=== PATIENT | male | born 1950 | race Caucasian/White ===

== ENCOUNTER 2020-04-10 18:49 | Inpatient (IN) | payer MEDICARE, SELFPAY ==
[2020-04-10] VITALS (7 sets, daily range): BP systolic 79–105; BP diastolic 50–64; PULSE 84–91; RESP 15–22; TEMP 36.9; O2SAT 88–99; BMI 30.7
--- NOTE | 2020-04-10 20:04 | XR_ITS ---
WS: [id number] PORTABLE CHEST HISTORY: SOB COMPARISON: None available. LEFT subclavian defibrillator obscures a small portion of the LEFT lung. Marked pulmonary hyperexpansion. Increasing opacification at the RIGHT lung base consistent with atel ectasis or pneumonia. No pleural effusions or pneumothorax. Cardiac size: Mildly enlarged cardiac silhouette. Mediastinum/Aorta: Normal mediastinum. No osseous abnormality seen. XR/XR chest 1V portable [id number] IMPRESSION: 1. Chronic emphysema with the RIGHT lower lobe pneumonitis or atelectasis. 2. Mild cardiomegaly.
--- NOTE | 2020-04-10 20:05 | ECG_ITS ---
[facility] Test Date: 2020-04-10 Pat Name: Shravan Ambrose Department: Room: Gender: Male Clerical Adjuster: : 1950 Requested By: Kevon Choi I Order Number: [id number] Nino MD: Jay Barton M.D. Measurements Intervals [place] Rate: 83 P: [place]: QRS: -23 QRSD: 82 T: 104 QT: 374 QTc: 441 Interpretive Statements ATRIAL FIBRILLATION WITH ABERRANT CONDUCTION OR VENTRICULAR PREMATURE COMPLEXES BORDERLINE LEFT AXIS DEVIATION [QRS AXIS < -20] LOW QRS VOLTAGE IN PRECORDIAL LEADS [QRS DEFLECTION < 1.0 mV IN CHEST LEADS] PATTERN CONSISTENT WITH PULMONARY DISEASE ST DEVIATION AND MODERATE T-WAVE ABNORMALITY, CONSIDER LATERAL ISCHEMIA [-0.1+ mV T WAVE IN I/aVL/V5/V6] INTERPRETATION BASED ON A DEFAULT AGE OF 40 YEARS No previous ECG available for comparison Electronically Signed On 04-10-2020 22:46:37 COMMUNITY ARTIST by Jay Barton M.D. [id number]
--- NOTE | 2020-04-10 20:13 | W.ED.SOB ---
HPI - SOB/Dyspnea General: Chief Complaint: Shortness of Breath/Dyspnea Stated Complaint: SOB/ RESPIRATORY DISTRESS Time Seen by Provider: 04/10/20 19:20 Source: patient Mode of arrival: EMS Limitations: other (poor historian) History of Present Illness: HPI Narrative: Patient is a really poor historian. He states that he developed some shortness of breath earlier today and is not able to tell me much more. He did say that he has a doctor do not want to place a stent in his heart sometime in April but he does not know the name of the doctor or where the doctor works out of. He denies a fever, denies chest pain, denies nausea or vomiting. His only symptoms are shortness of breath. He apparently has a pulse oximeter at home and when his family called for an ambulance they said he was hypoxic. When the ambulance got there his oxygen saturations were about 92 and he was placed on 2 L of oxygen. The patient states that he feels better now. MD elicited complaint: shortness of breath Timing: constant Exacerbating factors: nothing Relieving factors: oxygen Associated symptoms: Reports cough; Deny abdominal pain, chest congestion, chest pain, diaphoresis, dizziness, extremity pain, fever(s), hemoptysis, lightheadedness, myalgias, nausea, orthopnea, palpitations, paresthesias, polydipsia, polyuria, rash, sense of impending doom or syncope Review of Systems General: Reports: 10 or more systems reviewed and unremarkable except in HPI and below Const: Denies: fever(s) or diaphoresis Eyes: Denies: change in vision or blurry vision ENMT: Denies: throat pain, enlarged tonsils, odynophagia, hoarseness, mouth pain or swelling of lips/tongue Card: Denies: chest pain, palpitations, lightheadedness, syncope or orthopnea Resp: Denies: hemoptysis or chest congestion GI: Denies: abdominal pain or nausea : Denies: flank pain, dysuria, urinary frequency, urinary urgency or urinary hesitancy Musc: Denies: extremity pain Skin/Breast: Denies: rash, pruritus or erythema Neuro: Denies: dizziness Endo: Denies: polyuria or polydipsia Physical Exam Const: COMMON NORMALS: no acute distress, average body habitus, patient oriented x3, no limitations, healthy appearing, alert and well nourished HENMT: COMMON NORMALS: normocephalic, atraumatic and moist oral mucous membranes HEAD & SCALP: normocephalic and atraumatic Neck/C-Spine: COMMON NORMALS: no meningeal signs and no JVD Resp: COMMON NORMALS: normal respiratory effort, No retractions, No use of accessory muscles, clear to auscultation bilaterally and percussion normal AUSCULTATION: clear to auscultation bilaterally PERCUSSION: percussion normal Cardio: COMMON NORMALS: no JVD, regular rate, regular rhythm, S1 normal heart sound present, S2 normal heart sound present, No gallops present (Cardio), No clicks present (Cardio), No murmurs present (Cardio), No rub (Cardio) and Peripheral pulses 2+ throughout RATE: regular rate RHYTHM: regular rhythm HEART SOUNDS: S1 normal heart sound present and S2 normal heart sound present PERIPHERAL PULSES: Peripheral pulses 2+ throughout GI: COMMON NORMALS: Normal to inspection, nondistended, normoactive bowel sounds present, Soft to palpation, non-tender, No hepatosplenomegaly present, no masses and no bruits PALPATION: Yes Soft to palpation and Yes No hepatosplenomegaly present Extremity: COMMON NORMALS: normal to inspection, full ROM, capillary refill normal, no calf tenderness and no pedal edema Neuro: COMMON NORMALS: patient oriented x3 SENSORIUM/ORIENTATION: Yes alert MENINGEAL SIGNS: Yes no meningeal signs Skin: COMMON NORMALS: no rashes or lesions noted, no wounds, turgor normal, no jaundice, no petechiae and no mottling GENERAL SKIN EXAM: no rashes or lesions noted and turgor normal Course Consultations: Consultation #1: Discussed the patient with Dr. Negron, hospitalist and he kindly accepted patient to his service. Time: 23:20 Vital Signs: Vital signs: Vital Signs Temperature 98.4 F 04/10/20 19:03 Pulse Rate 87 04/10/20 23:00 Respiratory Rate 15 04/10/20 23:00 Blood Pressure 81/55 04/10/20 23:00 Pulse Oximetry 97 04/10/20 23:00 MDM - SOB/Dyspnea MDM Narrative: Medical decision making narrative: This 69-year-old male who is a poor historian and is unable to tell me much of anything other than he is short of breath and he has no pain anywhere. He was able to tell me that his senior windows systems engineer wants to place a stent however he is not able to tell me the name of his senior windows systems engineer or which hospital his senior windows systems engineer works out of. His caregiver is his sister Heather and the number we have for her in the computer is not working. I have tried her and intensive care unit nurse has also tried her but both times he says the number is not in service. We do not have any prior labs on this patient and he has several abnormal labs including mild leukocytosis, kidney failure and I am unsure whether this is acute or chronic but because his potassium is elevated I am leaning towards this being an acute kidney injury. He also has significantly elevated troponin and his delta is also significant at 18. He has been hypotensive throughout his emergency department stay, however he has a history of CHF and so we have been judicious with his fluid hydration. Because of his creatinine we are unable to get the CTA of his lungs and so VQ scan has been ordered. In the interim we will go ahead and start him on a heparin drip in case this is a PE versus a non-STEMI. We will admit him to the ICU for further evaluation and management. Medical Records: Attestation: I reviewed the patient's medical records. Lab Data: Attestation: I reviewed the patient's lab results. Labs: Lab Results 04/10/20 04/10/20 04/10/20 Range/Units 19:21 19:21 19:21 WBC 14.1 H (4.0-10.0) 10^3/ uL RBC 3.72 L (4.1-5.3) 10^6/u L Hgb 12.1 (11.7-16.6) g/dL Hct 38.2 L (42.0-52.0) % MCV 102.7 H (80-94) fL MCH 32.5 (28.0-34.0) pg MCHC 31.7 (30.0-36.0) g/dL RDW 15.4 H (12.1-15.1) % Plt Count 180 (130-400) 10^3/c mm MPV 13.7 H (7.4-10.4) fL Neut % (Auto) 86.2 % Lymph % (Auto) 6.3 % [place] % (Auto) 5.8 % Eos % (Auto) 0.8 % Baso % (Auto) 0.4 % Neut # (Auto) 12.13 H (1.8-7.7) 10^3/u L Lymph # (Auto) 0.9 (0.8-4.8) 10^3/u L [place] # (Auto) 0.8 (0.2-0.9) 10^3/u L Eos # (Auto) 0.1 (0.0-0.8) 10^3/u L Baso # (Auto) 0.1 (0.0-0.1) 10^3/u L Nucleated RBC % (a uto) 0 % Nucleated RBCs # 0.0 /100WBC Sodium 138 (136-145) mmol/L Potassium 6.1 H (3.5-5.1) mmol/L Chloride 104 (98-107) mmol/L Carbon Dioxide 24 (22-29) mmol/L Anion Gap 16.1 (5-19) BUN 31 H (8-23) mg/dL Creatinine 2.7 H (0.7-1.2) mg/dL GFR Calculation 23.5 L (90-130) mL/min Glucose 100 (65-115) mg/dL Calculated Osmolal ity 293 (285-295) mOsm/k g Lactate (0.5-2.2) mmol/L Calcium 8.9 (8.5-10.5) mg/dL Total Bilirubin 0.7 (0.15-1.2) mg/dL AST 10 (0-40) U/L ALT < 5 (0-41) U/L Alkaline Phosphata se 75 (40-130) IU/L Troponin T Baselin e 89 H (0-15) ng/L Troponin T 120 Min [place] (0-15) ng/L Delta Troponin T (0-10) ABS# C-Reactive Protein 10.6 H (0.0-4.9) mg/L NT-Pro-B Natriuret Pep 2012 H (0-125) pg/mL Total Protein 5.7 L (6.6-8.7) g/dL Albumin 3.6 (3.5-5.2) g/dL Globulin 2.1 (1.3-4.6) g/dL Procalcitonin 0.27 (0-0.5) ng/mL Nasal/Oral COVID-1 9 PCR SARS-CoV-2 Ag (Rap id) (Negative) 04/10/20 04/10/20 04/10/20 Range/Units 20:17 20:17 22:22 WBC (4.0-10.0) 10^3/ uL RBC (4.1-5.3) 10^6/u L Hgb (11.7-16.6) g/dL Hct (42.0-52.0) % MCV (80-94) fL MCH (28.0-34.0) pg MCHC (30.0-36.0) g/dL RDW (12.1-15.1) % Plt Count (130-400) 10^3/c mm MPV (7.4-10.4) fL Neut % (Auto) % Lymph % (Auto) % [place] % (Auto) % Eos % (Auto) % Baso % (Auto) % Neut # (Auto) (1.8-7.7) 10^3/u L Lymph # (Auto) (0.8-4.8) 10^3/u L [place] # (Auto) (0.2-0.9) 10^3/u L Eos # (Auto) (0.0-0.8) 10^3/u L Baso # (Auto) (0.0-0.1) 10^3/u L Nucleated RBC % (a uto) % Nucleated RBCs # /100WBC Sodium (136-145) mmol/L Potassium (3.5-5.1) mmol/L Chloride (98-107) mmol/L Carbon Dioxide (22-29) mmol/L Anion Gap (5-19) BUN (8-23) mg/dL Creatinine (0.7-1.2) mg/dL GFR Calculation (90-130) mL/min Glucose (65-115) mg/dL Calculated Osmolal ity (285-295) mOsm/k g Lactate 1.3 (0.5-2.2) mmol/L Calcium (8.5-10.5) mg/dL Total Bilirubin (0.15-1.2) mg/dL AST (0-40) U/L ALT (0-41) U/L Alkaline Phosphata se (40-130) IU/L Troponin T Baselin e (0-15) ng/L Troponin T 120 Min [place] (0-15) ng/L Delta Troponin T (0-10) ABS# C-Reactive Protein (0.0-4.9) mg/L NT-Pro-B Natriuret Pep (0-125) pg/mL Total Protein (6.6-8.7) g/dL Albumin (3.5-5.2) g/dL Globulin (1.3-4.6) g/dL Procalcitonin (0-0.5) ng/mL Nasal/Oral COVID-1 9 PCR Cancelled SARS-CoV-2 Ag (Rap id) Negative (Negative) 04/10/20 Range/Units 22:22 WBC (4.0-10.0) 10^3/ uL RBC (4.1-5.3) 10^6/u L Hgb (11.7-16.6) g/dL Hct (42.0-52.0) % MCV (80-94) fL MCH (28.0-34.0) pg MCHC (30.0-36.0) g/dL RDW (12.1-15.1) % Plt Count (130-400) 10^3/c mm MPV (7.4-10.4) fL Neut % (Auto) % Lymph % (Auto) % [place] % (Auto) % Eos % (Auto) % Baso % (Auto) % Neut # (Auto) (1.8-7.7) 10^3/u L Lymph # (Auto) (0.8-4.8) 10^3/u L [place] # (Auto) (0.2-0.9) 10^3/u L Eos # (Auto) (0.0-0.8) 10^3/u L Baso # (Auto) (0.0-0.1) 10^3/u L Nucleated RBC % (a uto) % Nucleated RBCs # /100WBC Sodium (136-145) mmol/L Potassium (3.5-5.1) mmol/L Chloride (98-107) mmol/L Carbon Dioxide (22-29) mmol/L Anion Gap (5-19) BUN (8-23) mg/dL Creatinine (0.7-1.2) mg/dL GFR Calculation (90-130) mL/min Glucose (65-115) mg/dL Calculated Osmolal ity (285-295) mOsm/k g Lactate (0.5-2.2) mmol/L Calcium (8.5-10.5) mg/dL Total Bilirubin (0.15-1.2) mg/dL AST (0-40) U/L ALT (0-41) U/L Alkaline Phosphata se (40-130) IU/L Troponin T Baselin e (0-15) ng/L Troponin T 120 Min [place] 70.94 H (0-15) ng/L Delta Troponin T -18.06 L (0-10) ABS# C-Reactive Protein (0.0-4.9) mg/L NT-Pro-B Natriuret Pep (0-125) pg/mL Total Protein (6.6-8.7) g/dL Albumin (3.5-5.2) g/dL Globulin (1.3-4.6) g/dL Procalcitonin (0-0.5) ng/mL Nasal/Oral COVID-1 9 PCR SARS-CoV-2 Ag (Rap id) (Negative) EKG Data^: EKG 1: Attestation: I personally reviewed and interpreted this EKG as follows: EKG Interpretation Date: 04/10/20 EKG interpretation time: 19:10 Prior EKG tracings: not available for review Interpretation: Atrial fibrillation. Heart rate [address] changes. EKG 2: Attestation: I personally reviewed and interpreted this EKG as follows: EKG Interpretation Date: 04/10/20 EKG interpretation time: 23:08 Prior EKG tracings: available for review Interpretation: Atrial fibrillation. Heart rate [address] changes. Discharge Plan Discharge Patient Disposition: Admitted As Inpatient Clinical Impression: Acute hypotension, Breath shortness, Elevated troponin, Acute hyperkalemia, Acute kidney injury CHF (congestive heart failure) Qualifiers: Heart failure type: unspecified Heart failure chronicity: unspecified Qualified Code(s): I50.9 - Heart failure, unspecified Condition: Stable Coding Level of Care Code ED Chef Manager for [facility] Fwd Exam Comprehensive
--- NOTE | 2020-04-10 20:17 | PC.NURSE ---
no c/o per pt. Pt stated I'm sick . undefine what's wrong per pt. I'm sick
[2020-04-10 21:31] LABS: SARS Covid-2 Antigen Negative (Negative)
--- NOTE | 2020-04-10 22:05 | ECG_ITS ---
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 Measurements Intervals [place] Rate: 90 P: [place]: QRS: -13 QRSD: 85 T: 121 QT: 344 QTc: 422 Interpretive Statements ATRIAL FIBRILLATION ABNORMAL QRS-T ANGLE [QRS-T AXIS DIFFERENCE > 60] INTERPRETATION BASED ON A DEFAULT AGE OF 40 YEARS Compared to ECG 04/10/2020 19:10:47 Ventricular premature complex(es) no longer present Aberrant conduction of supraventricular beat(s) no longer present T-wave abnormality no longer present Possible ischemia no longer present Electronically Signed On 04-11-2020 18:38:49 COAL HAULER OPERATOR by Jay Barton M.D. [id number]
[2020-04-10 22:15] LABS: Basophils # 0.1 10^3/uL (0.0-0.1); Basophils % 0.4 %; Eosinophils # 0.1 10^3/uL (0.0-0.8); Eosinophils % 0.8 %; Hematocrit 38.2 % (42.0-52.0); Hemoglobin 12.1 g/dL (11.7-16.6); Lymphocytes # 0.9 10^3/uL (0.8-4.8); Lymphocytes % 6.3 %; Mean Corpuscular HGB Conc 31.7 g/dL (30.0-36.0); Mean Corpuscular Hemoglobin 32.5 pg (28.0-34.0); Mean Corpuscular Volume 102.7 fL (80-94); Mean Platelet Volume 13.7 fL (7.4-10.4); Monocytes # 0.8 10^3/uL (0.2-0.9); Monocytes % 5.8 %; Neutrophils # 12.13 10^3/uL (1.8-7.7); Neutrophils % 86.2 %; Nucleated Red Blood Cells % 0 %; Platelet Count 180 10^3/cmm (130-400); Red Blood Count 3.72 10^6/uL (4.1-5.3); Red Cell Distribution Width 15.4 % (12.1-15.1); White Blood Count 14.1 10^3/uL (4.0-10.0)
--- NOTE | 2020-04-10 22:22 | PC.NURSE ---
Reviewed with provider, NS 500cc. Hold 2nd NS 500cc now.
--- NOTE | 2020-04-10 22:24 | PC.NURSE ---
Lab at bedside for repeat Trop
--- NOTE | 2020-04-10 22:25 | PC.NURSE ---
Provider aware of VS
[2020-04-10 22:27] LABS: Troponin(5th) Baseline 89 ng/L (0-15)
[2020-04-10 22:34] LABS: NT Pro B Type Natriuretic Pept 2012 pg/mL (0-125); Procalcitonin 0.27 ng/mL (0-0.5)
[2020-04-10 22:46] LABS: Alanine Aminotransferase < 5 U/L (0-41); Albumin Level 3.6 g/dL (3.5-5.2); Alkaline Phosphatase 75 IU/L (40-130); Anion Gap 16.1 (5-19); Aspartate Amino Transferase 10 U/L (0-40); Blood Urea Nitrogen 31 mg/dL (8-23); C Reactive Protein 10.6 mg/L (0.0-4.9); Calcium 8.9 mg/dL (8.5-10.5); Carbon Dioxide 24 mmol/L (22-29); Chloride 104 mmol/L (98-107); Globulin 2.1 g/dL (1.3-4.6); Glomerular Filtration Rate 23.5 mL/min (90-130); Glucose 100 mg/dL (65-115); Osmolality Calculated 293 mOsm/kg (285-295); Potassium 6.1 mmol/L (3.5-5.1); Sodium 138 mmol/L (136-145); Total Bilirubin 0.7 mg/dL (0.15-1.2); Total Protein 5.7 g/dL (6.6-8.7)
[2020-04-10 23:11] LABS: Lactate (Lactic Acid level) 1.3 mmol/L (0.5-2.2)
[2020-04-10 23:12] LABS: Troponin 5 2HR 70.94 ng/L (0-15)
--- NOTE | 2020-04-10 23:34 | PC.NURSE ---
technology integration specialist at bedside for Plts/INR/PTT/PT.
[2020-04-10 23:48] LABS: Platelet Count 179 10^3/cmm (130-400)
[2020-04-11] VITALS (52 sets, daily range): BP systolic 77–141; BP diastolic 49–85; PULSE 67–119; RESP 9–27; TEMP 36.4–36.6; O2SAT 85–97
[2020-04-11] LABS: Partial Thromboplastin Time 48.2 SECONDS (23.9-36.7)
[2020-04-11 00:04] LABS: INR 1.67 (0.8-1.2)
--- NOTE | 2020-04-11 00:07 | PC.NURSE ---
2nd RN - double check by SARAH Brown.
[2020-04-11] MEDS: heparin drip 25,000 UNIT/500 ML PREMIX 25 UNIT (00:15)
--- NOTE | 2020-04-11 00:15 | PC.NURSE ---
Report to SARAH Main. Room not clean, SARAH Main to call back when room clean.
--- NOTE | 2020-04-11 00:16 | P.HP_ITS ---
Providers/Chief Complaint Admitting Physician: Perla Negron MD Primary Care Provider: Miguel Canela Chief Complaint: SOB/ RESPIRATORY DISTRESS History of Present Illness Shravan Ambrose is a 69 year old male who presented to the hospital with chief complaint of not feeling right. Patient is not a good historian he is stating that he is not sure why he in the hospital but he felt sick. He is defining sickness as feeling short of breath when he was setting up his dinner table, he experienced presyncope, denied any chest pain, fever, nausea, vomiting, diarrhea, dysuria or syncopal event. He is not sure about his medications, past medical surgical history. We tried to call his caregiver who is his sister she is not able to answer our call. Multiple calls were made. Diagnosis in the ER revealed hypotension, responsive to fluid resuscitation, heparin drip was starte d initially in consideration of possible PE but he was saturating well on room air no tachycardia D-dimer unremarkable I have discontinued heparin drip. He was given 500 mL bolus which improved his blood pressure initially his systolic blood pressure was ranging between systolic 70 to 80s millimeters mercury. He was awake alert oriented x3 was not complaining of active shortness of breath. EMS brought him on 2 L but he did well on room air. Diagnosis in the ER revealed sepsis, most likely source is community-acquired pneumonia, left lower lobe pneumonia, I have started him on ceftriaxone and azithromycin sent blood culture, discontinued heparin drip, requested CT abdomen to rule out because of hyperkalemia. I reviewed his medications which include lisinopril, potassium supplementation, Lasix. BNP 2000, chest x-ray also shows mild pulmonary vascular congestion, EKG is not showing ischemic or infarctive changes or hyperkalemic changes. EKG has atrial flutter pattern without RVR For most of my question patient is saying I am not sure, I cannot tell you the details . However he told me that he was scheduled for placement of stent. He is not sure where his vp information technology is but thinks he is in [place] and stent was most likely to be placed in coronary artery. He is denying leg pain, chest pain active shortness of breath. Review of Systems Const: Denies: fever(s) Eyes: Denies: change in vision ENMT: Denies: throat pain Card: Reports: dyspnea on exertion; Denies: chest pain Resp: Reports: dyspnea GI: Denies: abdominal pain : Denies: flank pain Musc: Denies: neck pain Skin/Breast: Denies: rash Neuro: Denies: headache(s) Psych: Denies: anxiety Endo: Denies: polyuria Jet/Lymph: Denies: easy bruising All/Imm: Denies: urticaria Medications/Allergies Home Medications Medication Instructions Recorded Confirmed Last Taken Type albuterol sulfate [ProAir HFA] See Rx Instructions .ROUTE .COMPLEX 04/10/20 04/10/20 Unknown History allopurinol 100 mg PO DAILY@99904/10/20 04/10/20 04/10/20 History alogliptin 12.5 mg PO DAILY@99904/10/20 04/10/20 04/10/20 History apixaban [Eliquis] 5 mg PO BID@999,202904/10/20 04/10/20 04/10/20 History aspirin [Nhi Chewable Aspirin] 81 mg PO DAILY@99904/10/20 04/10/20 04/10/20 History atorvastatin 80 mg PO DAILY@202904/10/20 04/10/20 04/09/20 History carvedilol 25 mg PO BID@1000,0830 04/10/20 04/10/20 04/10/20 History furosemide 40 mg PO DAILY@99904/10/20 04/10/20 04/10/20 History glipizide 10 mg PO BID@1000,202904/10/20 04/10/20 04/10/20 History isosorbide mononitrate 30 mg PO BID@999,202904/10/20 04/10/20 04/10/20 History lisinopril 2.5 mg PO DAILY@1000 04/10/20 04/10/20 04/10/20 History nitroglycerin 0.4 mg SUBLINGUAL Q5M PRN 04/10/20 04/10/20 Unknown History pantoprazole 40 mg PO BID@1000,202904/10/20 04/10/20 04/10/20 History pentoxifylline 400 mg PO TID@10,15,20 04/10/20 04/10/20 04/10/20 History potassium chloride 20 meq PO BID@999,202904/10/20 04/10/20 04/10/20 History spironolactone 25 mg PO DAILY@1000 04/10/20 04/10/20 04/10/20 History Allergies Allergy/AdvReac Type Severity Reaction Status Date / Time No Known Allergies Allergy Verified 04/10/20 19:09 PFSH Acute PFSH: Medical History COPD (chronic obstructive pulmonary disease) Coronary artery disease Diabetes History of placement of internal cardiac defibrillator Surgical History AICD (automatic cardioverter/defibrillator) present Family History Other Family history non-contributory Social History Smoking and tobacco status: current every day smoker cigarettes [ Other cigarette details: Smokes half a pack a day ] Alcohol intake: never Substance/Drug Use: never Household members: other Details: Lives with his sister Housing: House Vitals/I&O/Wt Last Vital Signs Temp 98.4 F 04/10/20 19:03 Pulse 78 04/11/20 00:00 Resp 18 04/11/20 00:00 BP 88/68 04/11/20 00:00 Pulse Ox 96 04/11/20 00:00 Weight last 48 hrs Weight 88.904 kg Physical Exam Narrative: EXAM NARRATIVE: Elderly male currently laying comfortably in his bed without active shortness of breath or chest pain Saturating well on room air He was trying to catch up on his sleep For most of my questions he said Rhys not sure S1, S2 variable, no active signs of decompensated heart failure AICD site nonsensitive Current systolic blood pressure 100, mean arterial pressure 70 He is awake alert oriented x3 GCS 15 no neurological deficit EOMI, PERRLA Moving all of his extremities Bilateral breath sounds without respiratory distress Abdomen soft, distended visceral obesity nontender no signs of peritonitis Lower extremity no edema gangrene ulcer Cognitive impairment Data : 04/10/20 23:39 04/10/20 19:21 A&P Assessment and plan (1) Sepsis: Status: Acute (2) Community acquired pneumonia: Status: Acute (3) Acute hypotension: Status: Acute (4) CHF (congestive heart failure): Status: Acute Qualifiers: Heart failure chronicity: unspecified Heart failure type: unspecified Qualified Code(s): I50.9 - Heart failure, unspecified (5) Acute hyperkalemia: Status: Acute (6) Acute kidney injury: Status: Acute Additional A&P Information Sepsis secondary to community-acquired pneumonia Criteria met with hypotension, tachypnea and leukocytosis, likely left lower lobe pneumonia start him on ceftriaxone, azithromycin Hypotensive but responsive to fluid resuscitation I would continue maintenance fluid until 7 AM considering history of CHF Requested blood culture and urine antigen Currently saturating well on room air, D-dimer unremarkable Acute kidney injury Do not have previous creatinine to compare He has been taking lisinopril, potassium supplementation, spironolactone most likely for CHF I would hold all of these nephrotoxic agents hyperkalemia: I would give him insulin 10 units along D50 amp, albuterol 10 mg and Kayexalate No EKG changes for hyperkalemia noted, will give 1 g calcium gluconate Rule out hydronephrosis, requested CT abdomen without contrast Congestive heart failure without acute decompensation BNP is 2000 D-dimer unremarkable do not suspect PE, clinically does not look fluid overloaded or decompensated, does not fit the criteria of cardiogenic shock Would request echo in the morning and records from his vp information technology once we know from his sister Chest x-ray showing mild vascular congestion with mild bilateral pleural effusion Patient has AICD evident on chest x-ray Telemetry showing atrial flutter heart rate in 70s We will check TSH Patient is stating that he was scheduled for a stent placement in April at [place] but he is not able to tell me who is his vp information technology whether it was a coronary stent or peripheral stent Full code Cardiac diet DVT prophylaxis not indicated as she is taking Eliquis 5 mg twice a day which I would reduce to 2.5 mg twice a day because of ALISSON, discontinue heparin drip he has negative delta troponin not complaining of active chest pain, most likely type II CT due to hypotension Attestations Medical Necessity Statement*: Anticipating stay in the hospital cross more than 2 midnights currently I will admit him to ICU because of hyperkalemia and hypotension, he is not a good historian will need to straighten out his information and details once we are able to get hold of his vp information technology and sister Time Spent in Patient Care: (>than 50% of time spent in counselling and/or direct pt care on unit) . 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
--- NOTE | 2020-04-11 00:33 | PC.NURSE ---
Admitting provider at bedside
--- NOTE | 2020-04-11 00:39 | PC.NURSE ---
SARAH Main called to confirm cancel send out COVID. RN requested 2nd IV. Room ready
--- NOTE | 2020-04-11 00:45 | PC.NURSE ---
Pt to room 8 via stretcher, pt to ICU then return to CT for scan via this RN. Return pt to ICU, updated report to SARAH Main
--- NOTE | 2020-04-11 01:00 | CTR_ITS ---
PROCEDURE INFORMATION: Exam: CT Chest Without Contrast; Diagnostic Exam date and time: 04/11/2020 1:03 AM Age: 69 years old Clinical indication: Abnormal findings; Abnormal lab test; Abnormal kidney function lab tests; Prior surgery; Surgery type: Pacer; Patient HX: SOB. Elevated creatinine. ; Additional info: Hydronephrosis and cap TECHNIQUE: Imaging protocol: Diagnostic computed tomography of the chest without contrast. Radiation optimization: All CT scans at this facility use at least one of these dose optimization techniques: automated exposure control; mA and/or kV adjustment per patient size (includes targeted exams where dose is matched to clinical indication); or iterative reconstruction. COMPARISON: CR XR chest 1V portable [id number] 04/10/2020 8:06 PM RADIATION DOSE METRICS: Total DLP (mGy-cm): 1595.69 FINDINGS: Tubes, catheters and devices: There is a single lead AICD with the lead positioned in the right ventricle. Lungs: Subsegmental atelectasis in both lungs. No consolidation. Bronchial wall thickening with crowding of bronchi in the right lower lobe. Pleural space: Unremarkable. No pneumothorax. No pleural effusion. Heart: There is mild cardiac enlargement. There is trace pericardial effusion. There is severe coronary artery calcification. Probable left anterior descending coronary stent. Aorta: There is moderate aortic atherosclerotic disease. Lymph nodes: There is no mediastinal or hilar lymphadenopathy. There are calcified right hilar lymph nodes. Bones/joints: Chronic fractures of the left lateral 3rd and 4th ribs. No acute fracture. Soft tissues: Bilateral gynecomastia. IMPRESSION: 1. Subsegmental atelectasis in the right lower lobe. Possible superimposed acute or chronic bronchitis. 2. Incidental findings above. PROCEDURE INFORMATION: Exam: CT Abdomen And Pelvis Without Contrast Exam date and time: 04/11/2020 1:03 AM Age: 69 years old Clinical indication: Abnormal findings; Abnormal lab test; Abnormal kidney function lab tests; Prior surgery; Surgery type: Pacer; Patient HX: SOB. Elevated creatinine. ; Additional info: Hydronephrosis and cap TECHNIQUE: Imaging protocol: Computed tomography of the abdomen and pelvis without contrast. Radiation optimization: All CT scans at this facility use at least one of these dose optimization techniques: automated exposure control; mA and/or kV adjustment per patient size (includes targeted exams where dose is matched to clinical indication); or iterative reconstruction. COMPARISON: CR XR chest 1V portable [id number] 04/10/2020 8:06 PM RADIATION DOSE METRICS: Total DLP (mGy-cm): 1595.69 FINDINGS: Liver: There are scattered liver calcifications. No mass or cyst. Gallbladder and bile ducts: The gallbladder is normal. There is no biliary dilation. Pancreas: The pancreas is unremarkable. Spleen: Splenic size is normal. There are scattered calcifications consistent with healed granulomas. Adrenal glands: The adrenal glands are unremarkable. Kidneys and ureters: The kidneys are unremarkable. No hydronephrosis or stones. No ureteral dilation. Stomach and bowel: The stomach is decompressed, preventing meaningful evaluation of wall thickness. The small bowel is nondilated. The colon is unremarkable. Appendix: The appendix is normal. Intraperitoneal space: There is no free air or significant intraperitoneal free fluid. Vasculature: There is severe aortic atherosclerotic disease. Lymph nodes: There is no lymphadenopathy in the retroperitoneum, mesentery, pelvis or inguinal regions. Urinary bladder: The urinary bladder is unremarkable. Reproductive: The prostate and seminal vesicles are unremarkable. Bones/joints: There is mild degenerative disease in the lumbar spine. The pelvis and hips are intact. Soft tissues: The abdominal wall is intact. CT/CT chest abd pel wo con IMPRESSION: 1. No acute findings. 2. Incidental findings above. Radiation Dose CTDIVOL = (mGy): DLP = 1595.69~1595.69 (mGy-cm)
[2020-04-11] MEDS: calcium gluconate 0.1 gm/mL 10% SDV 10mL 1 GM IVP (01:48)
[2020-04-11] MEDS: dextrose 50% syringe 50 mL 25 ML IVP (01:49)
[2020-04-11] MEDS: sodium chloride 0.9% 1,000 ML 75 ML IV (01:49)
[2020-04-11] MEDS: sodium polystyrene sulfonate 15 gm/60 mL Btl PO (01:50)
[2020-04-11] MEDS: cefTRIAXone 1,000 MG in sodium chloride 0.9% (plus) 50 ML 100 MG IV (01:50)
--- NOTE | 2020-04-11 02:05 | ECG_ITS ---
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 Measurements Intervals [place] Rate: 82 P: [place]: QRS: -40 QRSD: 92 T: 111 QT: 348 QTc: 409 Interpretive Statements ATRIAL FIBRILLATION MARKED LEFT AXIS DEVIATION [QRS AXIS < -30] ANTEROSEPTAL MYOCARDIAL INFARCTION [40+ ms Q WAVE IN V1-V4], PROBABLY OLD INTERPRETATION BASED ON A DEFAULT AGE OF 40 YEARS Compared to ECG 04/10/2020 23:08:29 Left-axis deviation now present Myocardial infarct finding now present Electronically Signed On 04-11-2020 18:39:14 FIRE PREVENTION FORESTER by Jay Barton M.D. [email or web address]/store/[id number] f
[2020-04-11] MEDS: insulin regular-human 10 UNIT in SYRINGE 1 EACH IVP (02:16)
[2020-04-11] MEDS: albuterol 8 gm MDI 4 PUFF INHALATION (02:51)
[2020-04-11 03:20] LABS: Basophils % 0.3 %; Eosinophils # 0.1 10^3/uL (0.0-0.8); Eosinophils % 0.6 %; Hematocrit 39.1 % (42.0-52.0); Hemoglobin 12.7 g/dL (11.7-16.6); Lymphocytes % 9.3 %; Mean Corpuscular HGB Conc 32.5 g/dL (30.0-36.0); Mean Corpuscular Hemoglobin 32.5 pg (28.0-34.0); Mean Platelet Volume 13.1 fL (7.4-10.4); Monocytes # 0.5 10^3/uL (0.2-0.9); Monocytes % 4.8 %; Neutrophils # 8.67 10^3/uL (1.8-7.7); Neutrophils % 84.7 %; Nucleated Red Blood Cells % 0 %; Platelet Count 195 10^3/cmm (130-400); Red Blood Count 3.91 10^6/uL (4.1-5.3); Red Cell Distribution Width 15.5 % (12.1-15.1); White Blood Count 10.2 10^3/uL (4.0-10.0)
[2020-04-11 03:40] LABS: Alanine Aminotransferase 7 U/L (0-41); Albumin Level 3.8 g/dL (3.5-5.2); Alkaline Phosphatase 77 IU/L (40-130); Anion Gap 17.3 (5-19); Aspartate Amino Transferase 12 U/L (0-40); Blood Urea Nitrogen 27 mg/dL (8-23); Calcium 9.8 mg/dL (8.5-10.5); Carbon Dioxide 25 mmol/L (22-29); Chloride 102 mmol/L (98-107); Globulin 2.8 g/dL (1.3-4.6); Glomerular Filtration Rate 29.7 mL/min (90-130); Glucose 74 mg/dL (65-115); Osmolality Calculated 294 mOsm/kg (285-295); Potassium 4.3 mmol/L (3.5-5.1); Sodium 140 mmol/L (136-145); Total Bilirubin 0.5 mg/dL (0.15-1.2); Total Protein 6.6 g/dL (6.6-8.7)
[2020-04-11 03:42] LABS: Troponin 5 6HR 77.34 ng/L (0-15)
--- NOTE | 2020-04-11 09:15 | PC.CHAP ---
Pastoral Care Encounter/Spiritual Assessment Type of Contact [] Declined bit tripoler visit [] Patient/Family/Request visit [] Outpatient visit [] Follow-up visit [] Physician referral [] Code/Alert [] Routine visit [] Staff referral [] Actively dying [] Patient sleeping [] Family support [] [] Out of room [] Palliative care [] [] Receiving care in room [] Pre-surgical visit [] Trauma [] Long length of stay [x] ICU visit [] Other: Relational/Emotional Strength [] Patient feels connected with others/family/visitors/staff [] Distress [] Loneliness/isolation [] Abandonment Spirituality of Patient [] Person of Gwendolyn [] Attends Gnosticist of their Gwendolyn [] Believes in Prayer [] Reads Bible or Sikhism materials [] There are Spiritual issues to be addressed Cigar Wrapper Tender Automatic Interventions [x] Prayer [] Active listening [] Non-anxious presence [] Spiritual/emotional support [] Crisis/trauma care [] Spiritual counseling [] Bereavement support [] Provided bereavement packet [] Provided Bible/devotional materials [] Provided toy/stuffed animal, coloring book to patient or family member [] Provided Communion [] Anointing/[place] [] Salvation [x] Completed spiritual assessment [] Other: Impact on Illness or Injury [] Angry [] Fearful [] Anxious [] Often cries [] Exhaustion [] Unable to work [] Unable to attend restorationism [] Unable to walk/stand [] Unable to read [] Unable to drive [] Unable to eat/drink [] Unable to sleep [] Unable to be with family [] Patient intubated [] Other: Summary Time spent with patient
[2020-04-11] MEDS: apixaban 5 mg Tablet 2.5 MG PO ×2 (09:28→20:26)
[2020-04-11] MEDS: allopurinol 100 mg Tablet PO (09:28)
[2020-04-11] MEDS: azithromycin 250 mg Tablet 500 MG PO (09:28)
[2020-04-11] MEDS: aspirin 81 mg Chew Tablet PO (09:28)
--- NOTE | 2020-04-11 09:39 | P.PN_ITS ---
Subjective Subjective: Interval history: Mr. Cheney is doing fine today in the morning, shortness of breath has improved. Currently he is denying any chest pain, nausea vomiting. He is tolerating diet well. Has remained afebrile, has maintained a fairly good MAP without any pressors support. Is still in a flutter but rate is well controlled. Other vitals and labs have been reviewed Medications: Reviewed: Yes Vitals/I&O/Wt Last Vital Signs Temp 97.9 F 04/11/20 01:25 Pulse 102 H 04/11/20 08:25 Resp 17 04/11/20 07:00 BP 95/62 04/11/20 07:00 Pulse Ox 96 04/11/20 08:25 04/10/20 04/11/20 04/11/20 22:59 06:59 14:59 Intake Total 50 / 50 Output Total 600 / 600 Balance -550 / -550 Weight last 48 hrs Weight 88.904 kg Physical Exam Const: COMMON NORMALS: patient oriented x3 HENMT: COMMON NORMALS: normocephalic and atraumatic HEAD & SCALP: normocephalic and atraumatic Chest: COMMONS NORMALS: normal inspection of the chest CHEST: Yes Symmetrical chest wall rise Resp: COMMON NORMALS: normal respiratory effort EFFORT & INSPECTION: Yes symmetric chest movement OTHER: Diminished air entry at the bases, occasional wheezing, no crackles no rhonchi Cardio: OTHER: S1-S2 of variable intensity, no murmur rub or gallop appreciated GI: COMMON NORMALS: Normal to inspection, nondistended, normoactive bowel sounds present, Soft to palpation, non-tender, No hepatosplenomegaly present and no masses AUSCULTATION: Yes normoactive bowel sounds PALPATION: Yes Soft to palpation and Yes No hepatosplenomegaly present RECTAL EXAM: Yes deferred Extremity: COMMON NORMALS: no clubbing, cyanosis or edema and no pedal edema Neuro: COMMON NORMALS: patient oriented x3 Urinary Catheter Management^: Mota: Cath Placed During This Visit: yes Reason for Continuing Indwelling Catheter: Accurate Measurement of Urinary Output in Critically Ill Patients Urinary Catheter Date of Insertion: 04/11/20 Urinary Catheter Time of Insertion: 01:45 Data : 04/11/20 03:05 04/11/20 03:05 Micro: Microbiology 04/11/20 01:39 Bacterial Antigens - Final Urine,Voided 04/11/20 01:39 Legionella Urinary Antigen - Final Urine Catheterized 04/11/20 03:05 Blood Culture - Preliminary Blood SPECIMEN COLLECTED 04/11/20 03:08 Blood Culture - Preliminary Blood SPECIMEN COLLECTED A&P Assessment and plan (1) Sepsis: Continue ceftriaxone and azithromycin for now. Follow cultures Currently hemodynamically stable. Pro calcitonin: 0.27, lactic acid: 1.3. WBC is appropriately trending down. Rapid Covid is negative, PCR awaited Status: Acute (2) Community acquired pneumonia: Continue ceftriaxone and azithromycin for now. Status: Acute (3) Acute kidney injury: Baseline serum creatinine unknown: Currently serum creatinine is 2.2, as compared to 2.7 of admission. We will continue to hold lisinopril. Monitor BMP Continue to hold Lasix. Avoid nephrotoxic Avoid blood pressure fluctuation Urine electrolytes. We will avoid IV hydration. Encourage oral intake. Status: Acute (4) CHF (congestive heart failure): HFrEf: With EF of 15%. Currently compensated. Is undergoing extensive coronary artery disease as well as newly diagnosed heart failure work-up. Had detailed discussion with sister, underwent recent echo, stress test, and is due to see his water restoration technician in first week of Apr.We will avoid extensive cardiology work-up, as the patient wants to continue to follow with his primary water restoration technician. Status: Acute Qualifiers: Heart failure chronicity: unspecified Heart failure type: unspecified Qualified Code(s): I50.9 - Heart failure, unspecified (5) COPD (chronic obstructive pulmonary disease): Duo nebs PRN Solumedrol 40 mg i.v daily Supplemental oxygen as needed maintain saturation greater than 90% ABG as needed Status: Inactive (6) Elevated troponin: Denies any chest pain. Likely chronically elevated troponin, in the presence of, chronic heart failure. Telemetry. Status: Acute (7) Atrial fibrillation and flutter: Rate controlled Telemetry Continue Eliquis 2.5 MG Q12H Daily.Adjust with renal function. Status: Acute (8) Diabetes: LDSSI Monitor FSG Status: Inactive (9) Acute hyperkalemia: Resolved Status: Acute (10) AICD (automatic cardioverter/defibrillator) present: Status: Inactive (11) Coronary artery disease: follow cardiology as outpatinet. Status: Inactive Additional A&P Information CODE STATUS: Full code DVT prophylaxis: Currently on Eliquis Disposition: Home (anticipated discharge 04/13) Attestations Medical Necessity Statement*: Patient needs to be in hospital for the management of PNA and sepsis. Coding Level of Care Code Acute Retail Maintenance Technician for g Fwd Exam Detailed Diagnoses Sepsis A41.9 Community acquired pneumonia J18.9 Acute kidney injury N17.9 CHF (congestive heart failure) I50.9 Heart failure chronicity: unspecified Heart failure type: unspecified COPD (chronic obstructive pulmonary disease) J44.9 Elevated troponin R77.8 Atrial fibrillation and flutter I48.91; I48.92 Diabetes E11.9 Acute hyperkalemia E87.5 AICD (automatic cardioverter/defibrillator) present Z95.810 Coronary artery disease I25.10
[2020-04-11] MEDS: ondansetron 2 mg/ML SDV 2 mL 4 MG IVP ×2 (14:17→22:28)
--- NOTE | 2020-04-11 14:21 | PC.RESP ---
Smoking Cessation and Pulmonary Rehab information sent to patient.
[2020-04-11 17:58] LABS: Glucose Point of Care 75 mg/dL (70-110)
[2020-04-11] MEDS: atorvastatin 40 mg Tablet 80 MG PO (20:26)
[2020-04-11 20:35] LABS: Glucose Point of Care 95 mg/dL (70-110)
[2020-04-12] VITALS (51 sets, daily range): BP systolic 88–156; BP diastolic 50–102; PULSE 68–141; RESP 4–25; TEMP 36.9; O2SAT 85–99
[2020-04-12] MEDS: metoclopramide 5 mg/mL SDV 2 mL 10 MG IVP (00:14)
--- NOTE | 2020-04-12 00:15 | ECG_ITS ---
[facility] Test Date: 2020-04-12 Pat Name: Shravan Ambrose Department: Room: [facility]08 Gender: Male Him Specialists: : 1950 Requested By: Perla Negron Order Number: [id number] Nino MD: Estrella Vo M.D. Measurements Intervals [place] Rate: 128 P: [place]: QRS: -35 QRSD: 98 T: 87 QT: 291 QTc: 425 Interpretive Statements ATRIAL FIBRILLATION WITH RAPID VENTRICULAR RESPONSE POSSIBLE OLD SEPTAL INFARCT MARKED LEFT AXIS DEVIATION [QRS AXIS < -30] PATTERN CONSISTENT WITH PULMONARY DISEASE Compared to ECG 04/11/2020 02:46:53 Myocardial infarct finding still present Electronically Signed On 04-12-2020 8:44:46 CONSTRUCTION REP by Estrella Vo M.D. [id number] f
[2020-04-12] MEDS: cefTRIAXone 1,000 MG in sodium chloride 0.9% (plus) 50 ML 100 MG IV (00:42)
[2020-04-12] MEDS: promethazine 25 mg/mL SDV 1 mL IM (00:43)
[2020-04-12] MEDS: LORazepam 2 mg/mL INJ 1 mL 1 MG IVP (00:43)
[2020-04-12] MEDS: ondansetron 2 mg/ML SDV 2 mL 4 MG IVP (01:58)
[2020-04-12 07:31] LABS: Platelet Count 169 10^3/cmm (130-400)
[2020-04-12 07:59] LABS: Glucose Point of Care 114 mg/dL (70-110)
[2020-04-12] MEDS: azithromycin 250 mg Tablet 500 MG PO (09:56)
[2020-04-12] MEDS: allopurinol 100 mg Tablet PO (09:56)
[2020-04-12] MEDS: apixaban 5 mg Tablet 2.5 MG PO (09:57)
[2020-04-12] MEDS: aspirin 81 mg Chew Tablet PO (09:57)
[2020-04-12 11:53] LABS: Basophils % 0.1 %; Hematocrit 35.8 % (42.0-52.0); Hemoglobin 11.5 g/dL (11.7-16.6); Lymphocytes # 0.6 10^3/uL (0.8-4.8); Lymphocytes % 5.2 %; Mean Corpuscular HGB Conc 32.1 g/dL (30.0-36.0); Mean Corpuscular Hemoglobin 32.3 pg (28.0-34.0); Mean Corpuscular Volume 100.6 fL (80-94); Monocytes # 0.5 10^3/uL (0.2-0.9); Monocytes % 4.6 %; Neutrophils # 10.22 10^3/uL (1.8-7.7); Neutrophils % 89.4 %; Nucleated Red Blood Cells % 0 %; Platelet Count 170 10^3/cmm (130-400); Red Blood Count 3.56 10^6/uL (4.1-5.3); Red Cell Distribution Width 15.5 % (12.1-15.1); White Blood Count 11.4 10^3/uL (4.0-10.0)
--- NOTE | 2020-04-12 12:08 | PM.PN ---
Subjective Subjective: Interval history: is doing fine.No acute event overnight,resting comfortably. H/R is well controlled.Has remained afebrile,B/P is well controlled.Is saturating well on 3Ls Oxygen via NC.ALISSON is improving. Resting comfortably in bed was sleepy this morning. Other vitals and labs have been reviewed. Medications: Reviewed: Yes Vitals/I&O/Wt Last Vital Signs Temp 97.6 F 04/11/20 19:00 Pulse 80 04/12/20 11:00 Resp 17 04/12/20 11:00 BP 127/64 04/12/20 11:00 Pulse Ox 98 04/12/20 11:00 04/11/20 04/12/20 04/12/20 22:59 06:59 14:59 Intake Total 250 / 850 50 / 900 450 / 450 Output Total 600 / 600 450 / 1050 1050 / 1050 Balance -350 / 250 -400 / -150 -600 / -600 Weight last 48 hrs Weight 88.904 kg Physical Exam Const: COMMON NORMALS: patient oriented x3 HENMT: COMMON NORMALS: normocephalic and atraumatic HEAD & SCALP: normocephalic and atraumatic Chest: CHEST: Yes Symmetrical chest wall rise Resp: COMMON NORMALS: normal respiratory effort and clear to auscultation bilaterally AUSCULTATION: clear to auscultation bilaterally Cardio: OTHER: S1S2 OF VARIABLE INTENSITY,IRREGULARLY IRREGULAR RHYTHYM GI: COMMON NORMALS: Normal to inspection, nondistended, normoactive bowel sounds present, Soft to palpation, non-tender, No hepatosplenomegaly present and no masses AUSCULTATION: Yes normoactive bowel sounds PALPATION: Yes Soft to palpation and Yes No hepatosplenomegaly present RECTAL EXAM: Yes deferred Extremity: COMMON NORMALS: no clubbing, cyanosis or edema and no pedal edema Neuro: COMMON NORMALS: patient oriented x3 Urinary Catheter Management^: Mota: Cath Placed During This Visit: yes Reason for Continuing Indwelling Catheter: Accurate Measurement of Urinary Output in Critically Ill Patients Urinary Catheter Date of Insertion: 04/11/20 Urinary Catheter Time of Insertion: 01:45 Data : 04/12/20 11:24 04/12/20 11:24 Micro: Microbiology 04/11/20 03:05 Blood Culture - Preliminary Blood NEGATIVE TO DATE 04/11/20 03:08 Blood Culture - Preliminary Blood NEGATIVE TO DATE 04/11/20 01:39 Bacterial Antigens - Final Urine,Voided 04/11/20 01:39 Legionella Urinary Antigen - Final Urine Catheterized A&P Assessment and plan (1) Sepsis: Continue ceftriaxone and azithromycin for now. Blood cultures:Negative till date,Urine bacterial and legioinella antigen panel:Negative. Currently hemodynamically stable. Pro calcitonin: 0.27, lactic acid: 1.3. WBC is appropriately trending down. Rapid Covid is negative, PCR awaited Status: Acute (2) Community acquired pneumonia: Continue ceftriaxone and azithromycin for now. Status: Acute (3) Acute kidney injury: Baseline serum creatinine unknown: Currently serum creatinine is 1.4, as compared to 2.7 of admission. We will continue to hold lisinopril. Monitor BMP Continue to hold Lasix. Avoid nephrotoxic Avoid blood pressure fluctuation Urine electrolytes. Encourage oral intake. Status: Acute (4) CHF (congestive heart failure): HFrEf: With EF of 15%. Currently compensated. Is undergoing extensive coronary artery disease as well as newly diagnosed heart failure work-up. Had detailed discussion with sister, underwent recent echo, stress test, and is due to see his supervisory examiner in first week of Apr.We will avoid extensive cardiology work-up, as the patient wants to continue to follow with his primary supervisory examiner. Status: Acute Qualifiers: Heart failure chronicity: unspecified Heart failure type: unspecified Qualified Code(s): I50.9 - Heart failure, unspecified (5) COPD (chronic obstructive pulmonary disease): Duo nebs PRN Solumedrol 40 mg i.v daily Supplemental oxygen as needed maintain saturation greater than 90% ABG as needed Status: Inactive (6) Elevated troponin: Denies any chest pain. Likely chronically elevated troponin, in the presence of, chronic heart failure. Telemetry. Status: Acute (7) Atrial fibrillation and flutter: Rate controlled Telemetry Eliquis 5 MG Q12H Daily from am Status: Acute (8) Anemia: Normocytic Anemia. Anemia Panel B12,Folic acid Monitor CBC No need for transfusion now. Status: Acute (9) Diabetes: LDSSI Monitor FSG Status: Inactive (10) Acute hyperkalemia: Resolved Status: Acute (11) AICD (automatic cardioverter/defibrillator) present: Status: Inactive (12) Coronary artery disease: follow cardiology as outpatinet. Status: Inactive Additional A&P Information CODE STATUS: Full code DVT prophylaxis: Currently on Eliquis Disposition: Home (anticipated discharge 04/13) Attestations Medical Necessity Statement*: Patient need to be in hospital for the management of PNA R/O COVID. Coding Level of Care Code Acute Derrick Worker Well Service for Chg Fwd Diagnoses Sepsis A41.9 Community acquired pneumonia J18.9 Acute kidney injury N17.9 CHF (congestive heart failure) I50.9 Heart failure chronicity: unspecified Heart failure type: unspecified COPD (chronic obstructive pulmonary disease) J44.9 Elevated troponin R77.8 Atrial fibrillation and flutter I48.91; I48.92 Anemia D64.9 Diabetes E11.9 Acute hyperkalemia E87.5 AICD (automatic cardioverter/defibrillator) present Z95.810 Coronary artery disease I25.10
[2020-04-12 12:18] LABS: Alanine Aminotransferase 8 U/L (0-41); Albumin Level 3.4 g/dL (3.5-5.2); Alkaline Phosphatase 62 IU/L (40-130); Anion Gap 12.6 (5-19); Aspartate Amino Transferase 14 U/L (0-40); Blood Urea Nitrogen 27 mg/dL (8-23); Calcium 8.9 mg/dL (8.5-10.5); Carbon Dioxide 28 mmol/L (22-29); Chloride 103 mmol/L (98-107); Globulin 2.1 g/dL (1.3-4.6); Glomerular Filtration Rate 50.1 mL/min (90-130); Glucose 147 mg/dL (65-115); Magnesium 1.4 mg/dL (1.7-2.3); Osmolality Calculated 296 mOsm/kg (285-295); Potassium 4.6 mmol/L (3.5-5.1); Sodium 139 mmol/L (136-145); Total Bilirubin 0.4 mg/dL (0.15-1.2); Total Protein 5.5 g/dL (6.6-8.7)
[2020-04-12 12:23] LABS: Glucose Point of Care 148 mg/dL (70-110)
--- NOTE | 2020-04-12 14:00 | PC.NURSE ---
lethargic but will awaken with stimuli .. no further c/o nausea or loose stools at this time
--- NOTE | 2020-04-12 14:23 | PC.NURSE ---
now awake somewhat and liquids given
[2020-04-12 17:27] LABS: Glucose Point of Care 254 mg/dL (70-110)
[2020-04-12 18:18] LABS: Coronavirus Test Green County Not Detected
[2020-04-12 20:06] LABS: Glucose Point of Care 256 mg/dL (70-110)
[2020-04-12] MEDS: atorvastatin 40 mg Tablet 80 MG PO (20:15)
[2020-04-12] MEDS: apixaban 5 mg Tablet PO (20:16)
[2020-04-13] VITALS (52 sets, daily range): BP systolic 88–135; BP diastolic 50–89; PULSE 74–126; RESP 11–21; TEMP 36.4–36.9; O2SAT 73–99
[2020-04-13] MEDS: cefTRIAXone 1,000 MG in sodium chloride 0.9% (plus) 50 ML 100 MG IV (00:36)
[2020-04-13] MEDS: metoclopramide 5 mg/mL SDV 2 mL 10 MG IVP (00:57)
[2020-04-13] MEDS: albuterol 8 gm MDI 4 PUFF INHALATION ×2 (02:09→08:00)
[2020-04-13 03:52] LABS: Basophils % 0.1 %; Hematocrit 35.9 % (42.0-52.0); Hemoglobin 11.9 g/dL (11.7-16.6); Lymphocytes # 0.5 10^3/uL (0.8-4.8); Lymphocytes % 2.6 %; Mean Corpuscular HGB Conc 33.1 g/dL (30.0-36.0); Mean Corpuscular Hemoglobin 32.8 pg (28.0-34.0); Mean Corpuscular Volume 98.9 fL (80-94); Mean Platelet Volume 12.7 fL (7.4-10.4); Monocytes # 0.9 10^3/uL (0.2-0.9); Monocytes % 4.6 %; Neutrophils # 17.21 10^3/uL (1.8-7.7); Neutrophils % 91.9 %; Nucleated Red Blood Cells % 0 %; Platelet Count 179 10^3/cmm (130-400); Red Blood Count 3.63 10^6/uL (4.1-5.3); Red Cell Distribution Width 15.4 % (12.1-15.1); White Blood Count 18.7 10^3/uL (4.0-10.0)
[2020-04-13 04:16] LABS: Alanine Aminotransferase 15 U/L (0-41); Albumin Level 3.5 g/dL (3.5-5.2); Alkaline Phosphatase 66 IU/L (40-130); Anion Gap 12.7 (5-19); Aspartate Amino Transferase 21 U/L (0-40); Blood Urea Nitrogen 35 mg/dL (8-23); Calcium 9.1 mg/dL (8.5-10.5); Carbon Dioxide 27 mmol/L (22-29); Chloride 105 mmol/L (98-107); Globulin 2.3 g/dL (1.3-4.6); Glomerular Filtration Rate 73.9 mL/min (90-130); Glucose 158 mg/dL (65-115); Osmolality Calculated 301 mOsm/kg (285-295); Potassium 4.7 mmol/L (3.5-5.1); Sodium 140 mmol/L (136-145); Total Bilirubin 0.2 mg/dL (0.15-1.2); Total Protein 5.8 g/dL (6.6-8.7)
[2020-04-13 07:43] LABS: Glucose Point of Care 140 mg/dL (70-110)
[2020-04-13] MEDS: allopurinol 100 mg Tablet PO (09:24)
[2020-04-13] MEDS: aspirin 81 mg Chew Tablet PO (09:24)
[2020-04-13] MEDS: azithromycin 250 mg Tablet 500 MG PO (09:24)
[2020-04-13] MEDS: apixaban 5 mg Tablet PO ×2 (09:26→20:06)
[2020-04-13 11:42] LABS: Glucose Point of Care 208 mg/dL (70-110)
[2020-04-13] MEDS: carvedilol 25 mg Tablet PO (12:20)
[2020-04-13 17:00] LABS: Glucose Point of Care 199 mg/dL (70-110)
[2020-04-13] MEDS: ipratropium-albuterol 3 mL Neb INHALATION (19:53)
--- NOTE | 2020-04-13 20:01 | P.PN_ITS ---
Subjective Subjective: Interval history: No acute events overnight. Patient is comfortable, denies any active complaints. Tolerating diet well. Saturating well on baseline oxygen requirement ( 3/4 l ) Medications: Reviewed: Yes Vitals/I&O/Wt Last Vital Signs Temp 98.5 F 04/13/20 13:00 Pulse 95 04/13/20 20:00 Resp 15 04/13/20 19:53 BP 110/67 04/13/20 19:00 Pulse Ox 96 04/13/20 19:53 04/13/20 04/13/20 04/13/20 06:59 14:59 22:59 Intake Total 600 / 600 450 / 1050 Output Total 300 / 2075 650 / 650 Balance -300 / -1225 600 / 600 -200 / 400 Physical Exam Const: COMMON NORMALS: patient oriented x3 HENMT: COMMON NORMALS: normocephalic and atraumatic HEAD & SCALP: normocephalic and atraumatic Chest: COMMONS NORMALS: normal inspection of the chest CHEST: Yes Symmetrical chest wall rise Resp: COMMON NORMALS: normal respiratory effort and clear to auscultation bilaterally AUSCULTATION: clear to auscultation bilaterally Cardio: OTHER: Irregularly irregular rhythm, S1-S2 variable intensity GI: COMMON NORMALS: Normal to inspection, nondistended, normoactive bowel sounds present, Soft to palpation, non-tender, No hepatosplenomegaly present and no masses AUSCULTATION: Yes normoactive bowel sounds PALPATION: Yes Soft to palpation and Yes No hepatosplenomegaly present RECTAL EXAM: Yes deferred Extremity: OTHER: 1+ bilateral pitting edema present both lower extremity. Neuro: COMMON NORMALS: patient oriented x3 Urinary Catheter Management^: Mtoa: Cath Placed During This Visit: yes Reason for Continuing Indwelling Catheter: Accurate Measurement of Urinary Output in Critically Ill Patients Urinary Catheter Date of Insertion: 04/11/20 Urinary Catheter Time of Insertion: 01:45 Data : 04/13/20 03:25 04/13/20 03:25 A&P Assessment and plan (1) Sepsis: Continue ceftriaxone and azithromycin for now. Blood cultures:Negative till date,Urine bacterial and legioinella antigen panel:Negative. Currently hemodynamically stable. Pro calcitonin: 0.27, lactic acid: 1.3. WBC is appropriately trending down. Rapid Covid is negative, PCR: Negative Status: Acute (2) Community acquired pneumonia: Continue ceftriaxone and azithromycin for now. Status: Acute (3) Acute kidney injury: Resolved Currently serum creatinine is 1.0 as compared to 2.7 of admission. We will continue to hold lisinopril. Monitor BMP Continue to hold Lasix. Avoid nephrotoxic Avoid blood pressure fluctuation Urine electrolytes. Encourage oral intake. Status: Acute (4) CHF (congestive heart failure): HFrEf: With EF of 15%. Currently compensated. Is undergoing extensive coronary artery disease as well as newly diagnosed heart failure work-up. Had detailed discussion with sister, underwent recent echo, stress test, and is due to see his institutional nutrition consultant in first week of Apr.We will avoid extensive cardiology work-up, as the patient wants to continue to follow with his primary institutional nutrition consultant. Will resume 40 mg p.o. Lasix daily from 04/14 Status: Acute Qualifiers: Heart failure chronicity: unspecified Heart failure type: unspecified Qualified Code(s): I50.9 - Heart failure, unspecified (5) COPD (chronic obstructive pulmonary disease): Duo nebs PRN Solumedrol 40 mg i.v daily Supplemental oxygen as needed maintain saturation greater than 90% ABG as needed Status: Inactive (6) Elevated troponin: Denies any chest pain. Likely chronically elevated troponin, in the presence of, chronic heart failure. Telemetry. Status: Acute (7) Atrial fibrillation and flutter: Carvedilol 25 mg every 12 hours daily Telemetry Eliquis 5 MG Q12H Daily Status: Acute (8) Anemia: Normocytic Anemia. Anemia Panel B12,Folic acid Monitor CBC No need for transfusion now. Status: Acute (9) Diabetes: LDSSI Monitor FSG Status: Inactive (10) Acute hyperkalemia: Resolved Status: Acute (11) AICD (automatic cardioverter/defibrillator) present: Status: Inactive (12) Coronary artery disease: follow cardiology as outpatinet. Status: Inactive Additional A&P Information CODE STATUS: Full code DVT prophylaxis: Currently on Eliquis Disposition: Home (anticipated discharge 04/13) Attestations Medical Necessity Statement*: Patient needs to be in hospital for management of pneumonia, A. fib. Coding Level of Care Code Acute Urban And Regional Planner for [facility] Fwd Diagnoses Sepsis A41.9 Community acquired pneumonia J18.9 Acute kidney injury N17.9 CHF (congestive heart failure) I50.9 Heart failure chronicity: unspecified Heart failure type: unspecified COPD (chronic obstructive pulmonary disease) J44.9 Elevated troponin R77.8 Atrial fibrillation and flutter I48.91; I48.92 Anemia D64.9 Diabetes E11.9 Acute hyperkalemia E87.5 AICD (automatic cardioverter/defibrillator) present Z95.810 Coronary artery disease I25.10
[2020-04-13] MEDS: atorvastatin 40 mg Tablet 80 MG PO (20:06)
[2020-04-13 20:15] LABS: Glucose Point of Care 236 mg/dL (70-110)
[2020-04-13] MEDS: ondansetron 2 mg/ML SDV 2 mL 4 MG IVP (21:38)
--- NOTE | 2020-04-13 21:55 | PC.NURSE ---
Report called to ROX Holden on [facility] at this time.
--- NOTE | 2020-04-13 22:27 | PC.NURSE ---
Received report from Salma in ICU, patient to the floor at 1069.
--- NOTE | 2020-04-13 22:28 | PC.NURSE ---
patient transferred to room 252-2, nurse bejarano is at bedside.
[2020-04-14] VITALS (10 sets, daily range): BP systolic 99–129; BP diastolic 63–78; PULSE 72–103; RESP 16–18; TEMP 36.4–37; O2SAT 91–99
[2020-04-14] MEDS: cefTRIAXone 1,000 MG in sodium chloride 0.9% (plus) 50 ML 100 MG IV (02:25)
[2020-04-14 06:28] LABS: Basophils % 0.1 %; Hematocrit 37.1 % (42.0-52.0); Hemoglobin 11.9 g/dL (11.7-16.6); Lymphocytes # 0.6 10^3/uL (0.8-4.8); Lymphocytes % 2.8 %; Mean Corpuscular HGB Conc 32.1 g/dL (30.0-36.0); Mean Corpuscular Hemoglobin 32.3 pg (28.0-34.0); Mean Corpuscular Volume 100.8 fL (80-94); Mean Platelet Volume 12.8 fL (7.4-10.4); Monocytes # 0.5 10^3/uL (0.2-0.9); Monocytes % 2.3 %; Neutrophils # 19.25 10^3/uL (1.8-7.7); Neutrophils % 94.1 %; Nucleated Red Blood Cells % 0 %; Platelet Count 182 10^3/cmm (130-400); Red Blood Count 3.68 10^6/uL (4.1-5.3); Red Cell Distribution Width 15.7 % (12.1-15.1); White Blood Count 20.5 10^3/uL (4.0-10.0)
[2020-04-14 06:41] LABS: Glucose Point of Care 169 mg/dL (70-110)
[2020-04-14 06:53] LABS: Alanine Aminotransferase 17 U/L (0-41); Albumin Level 3.6 g/dL (3.5-5.2); Alkaline Phosphatase 64 IU/L (40-130); Aspartate Amino Transferase 16 U/L (0-40); Blood Urea Nitrogen 34 mg/dL (8-23); Calcium 9.1 mg/dL (8.5-10.5); Carbon Dioxide 31 mmol/L (22-29); Chloride 106 mmol/L (98-107); Globulin 2.3 g/dL (1.3-4.6); Glomerular Filtration Rate 83.4 mL/min (90-130); Glucose 179 mg/dL (65-115); Osmolality Calculated 306 mOsm/kg (285-295); Sodium 142 mmol/L (136-145); Total Bilirubin 0.2 mg/dL (0.15-1.2); Total Protein 5.9 g/dL (6.6-8.7)
[2020-04-14 07:03] LABS: Slide Review Slide Review Perform
[2020-04-14] MEDS: carvedilol 25 mg Tablet PO ×2 (08:07→17:39)
[2020-04-14] MEDS: azithromycin 250 mg Tablet 500 MG PO (08:10)
--- NOTE | 2020-04-14 09:00 | PC.SOCIAL ---
IMM Page 2 of IMM explained to patient. Initialed, dated, and timed and placed in chart. Copy provided to patient.
[2020-04-14] MEDS: apixaban 5 mg Tablet PO ×2 (09:13→20:28)
[2020-04-14] MEDS: allopurinol 100 mg Tablet PO (09:13)
[2020-04-14] MEDS: aspirin 81 mg Chew Tablet PO (09:13)
[2020-04-14 11:25] LABS: Glucose Point of Care 118 mg/dL (70-110)
[2020-04-14 11:25] LABS: Glucose Point of Care 349 mg/dL (70-110)
--- NOTE | 2020-04-14 16:34 | P.PN_ITS ---
Subjective Subjective: Interval history: Shravan reports he is doing okay today. History and physical as well as daily progress notes reviewed Medications: Reviewed: Yes Vitals/I&O/Wt Last Vital Signs Temp 97.8 F 04/14/20 15:50 Pulse 95 04/14/20 15:50 Resp 18 04/14/20 15:50 BP 105/63 04/14/20 15:50 Pulse Ox 98 04/14/20 15:50 04/14/20 04/14/20 04/14/20 06:59 14:59 22:59 Intake Total 240 / 1350 360 / 360 Output Total 500 / 1150 200 / 200 Balance -260 / 200 160 / 160 Physical Exam Narrative: EXAM NARRATIVE: General exam no apparent distress Cardiovascular irregular, irregular rhythm Lungs a few faint expiratory wheezes Abdomen is soft nontender with positive bowel sounds Extremities no cyanosis clubbing or edema Urinary Catheter Management^: Mota: Cath Placed During This Visit: yes Reason for Continuing Indwelling Catheter: Accurate Measurement of Urinary Output in Critically Ill Patients Urinary Catheter Date of Insertion: 04/11/20 Urinary Catheter Time of Insertion: 01:45 Data : 04/14/20 06:21 04/14/20 06:21 A&P Assessment and plan (1) Sepsis: Currently on ceftriaxone and a Zithromax. Blood cultures negative to date White blood cell count is higher Status: Acute (2) Community acquired pneumonia: Currently on azithromycin and ceftriaxone Right lower lobe infiltrate on chest x-ray With increased oxygen requirement, and increasing white blood cell count change to vancomycin and Zosyn Sputum culture, MRSA PCR Covid PCR - April 10 Check chest x-ray tomorrow morning Status: Acute (3) Acute kidney injury: Resolved Continue to hold lisinopril Avoid nephrotoxic medications Status: Acute (4) CHF (congestive heart failure): History of heart failure with significantly reduced EF of 15%. Has cardiology follow-up in [place] regarding this. Resume Lasix 40 mg daily tomorrow. Lasix 20 mg IV today. Status: Acute Qualifiers: Heart failure chronicity: unspecified Heart failure type: unspecified Qualified Code(s): I50.9 - Heart failure, unspecified (5) COPD (chronic obstructive pulmonary disease): Change to prednisone 40 mg daily Wean oxygen as tolerated Scheduled nebs Status: Inactive (6) Elevated troponin: Type II elevation Status: Acute (7) Atrial fibrillation and flutter: Continue Eliquis, carvedilol Status: Acute (8) Anemia: Stable Status: Acute (9) Diabetes: Sliding scale insulin Monitor FSG Status: Inactive (10) Acute hyperkalemia: Resolved Status: Acute (11) AICD (automatic cardioverter/defibrillator) present: Status: Inactive (12) Coronary artery disease: Stable currently Status: Inactive Additional A&P Information Full code Eliquis will suffice for DVT prophylaxis Attestations Medical Necessity Statement*: Needs continued hospitalization for further investigation of pneumonia. Coding Level of Care Code Acute Psychology Associate for Chg Fwd Diagnoses Sepsis A41.9 Community acquired pneumonia J18.9 Acute kidney injury N17.9 CHF (congestive heart failure) I50.9 Heart failure chronicity: unspecified Heart failure type: unspecified COPD (chronic obstructive pulmonary disease) J44.9 Elevated troponin R77.8 Atrial fibrillation and flutter I48.91; I48.92 Anemia D64.9 Diabetes E11.9 Acute hyperkalemia E87.5 AICD (automatic cardioverter/defibrillator) present Z95.810 Coronary artery disease I25.10
[2020-04-14 17:19] LABS: Glucose Point of Care 220 mg/dL (70-110)
[2020-04-14] MEDS: FUROsemide 10 mg/mL SDV 2mL 20 MG IVP (17:39)
[2020-04-14] MEDS: piperacillin-tazobactam 3.375 GM in sodium chloride 0.9% (plus) 50 ML IV (17:39)
[2020-04-14] MEDS: ipratropium-albuterol 3 mL Neb INHALATION (17:41)
[2020-04-14 20:20] LABS: Glucose Point of Care 206 mg/dL (70-110)
[2020-04-14] MEDS: atorvastatin 40 mg Tablet 80 MG PO (20:31)
[2020-04-14] MEDS: vancomycin 1,500 MG/300 ML PIGGYBACK 200 MG IV (21:48)
[2020-04-15] VITALS (14 sets, daily range): BP systolic 91–128; BP diastolic 53–82; PULSE 58–128; RESP 16–22; TEMP 36.3–36.9; O2SAT 91–99
[2020-04-15] MEDS: piperacillin-tazobactam 3.375 GM in sodium chloride 0.9% (plus) 50 ML IV ×3 (00:26→16:37)
[2020-04-15 05:42] LABS: Basophils % 0.1 %; Hematocrit 38.4 % (42.0-52.0); Hemoglobin 12.2 g/dL (11.7-16.6); Lymphocytes # 0.7 10^3/uL (0.8-4.8); Lymphocytes % 3.7 %; Mean Corpuscular HGB Conc 31.8 g/dL (30.0-36.0); Mean Corpuscular Hemoglobin 32.2 pg (28.0-34.0); Mean Corpuscular Volume 101.3 fL (80-94); Mean Platelet Volume 13.4 fL (7.4-10.4); Monocytes # 0.8 10^3/uL (0.2-0.9); Monocytes % 4.3 %; Neutrophils # 16.53 10^3/uL (1.8-7.7); Neutrophils % 91.2 %; Nucleated Red Blood Cells % 0 %; Platelet Count 176 10^3/cmm (130-400); Red Blood Count 3.79 10^6/uL (4.1-5.3); Red Cell Distribution Width 15.7 % (12.1-15.1); White Blood Count 18.1 10^3/uL (4.0-10.0)
[2020-04-15 06:09] LABS: Alanine Aminotransferase 19 U/L (0-41); Albumin Level 3.4 g/dL (3.5-5.2); Alkaline Phosphatase 64 IU/L (40-130); Aspartate Amino Transferase 15 U/L (0-40); Blood Urea Nitrogen 34 mg/dL (8-23); Calcium 9.6 mg/dL (8.5-10.5); Carbon Dioxide 32 mmol/L (22-29); Chloride 103 mmol/L (98-107); Creatinine Clr Calc Pharmacy 91.4151; Globulin 2.3 g/dL (1.3-4.6); Glomerular Filtration Rate 95.6 mL/min (90-130); Glucose 181 mg/dL (65-115); Osmolality Calculated 306 mOsm/kg (285-295); Sodium 142 mmol/L (136-145); Total Bilirubin 0.3 mg/dL (0.15-1.2); Total Protein 5.7 g/dL (6.6-8.7)
[2020-04-15 06:12] LABS: Anion Gap 11.7 (5-19); Potassium 4.7 mmol/L (3.5-5.1)
--- NOTE | 2020-04-15 06:32 | NUR.SHIFT ---
Patient mainly slept through the night. Would wake to have a small coughing fit.
[2020-04-15 06:45] LABS: Glucose Point of Care 183 mg/dL (70-110)
--- NOTE | 2020-04-15 07:00 | XRR_ITS ---
PROCEDURE INFORMATION: Exam: XR Chest, 1 View Exam date and time: 04/15/2020 7:10 AM Age: 69 years old Clinical indication: Condition or disease; Lung condition and disease; Pneumonia; Other: Not specified; Additional info: Follow pu pneumonia TECHNIQUE: Imaging protocol: XR of the chest Views: 1 view. COMPARISON: CT chest abd pel wo con 04/11/2020 12:58 AM FINDINGS: Lungs: Calcified lymph nodes right hilum Airspace consolidation within the right retrocardiac region. Atelectasis and or infiltrate. Pleural space: Unremarkable. No pleural effusion. No pneumothorax. Heart/Mediastinum: Cardiomegaly Vasculature: Pacemaker is present via a left subclavian approach. Bones/joints: Unremarkable. XR/XR chest 1V portable [id number] IMPRESSION: Airspace consolidation within the right retrocardiac region. Atelectasis and or infiltrate. Lungs are otherwise well aerated.
[2020-04-15] MEDS: ipratropium-albuterol 3 mL Neb INHALATION ×6 (07:50→19:48)
[2020-04-15] MEDS: predniSONE 20 mg Tablet 40 MG PO (08:16)
[2020-04-15] MEDS: FUROsemide 40 mg Tablet PO (08:16)
[2020-04-15] MEDS: carvedilol 25 mg Tablet PO (08:16)
[2020-04-15] MEDS: aspirin 81 mg Chew Tablet PO (08:16)
[2020-04-15] MEDS: allopurinol 100 mg Tablet PO (08:17)
[2020-04-15] MEDS: apixaban 5 mg Tablet PO ×2 (08:17→21:23)
[2020-04-15] MEDS: vancomycin 1,500 MG/300 ML PIGGYBACK 200 MG IV ×2 (09:01→21:23)
[2020-04-15 11:48] LABS: Glucose Point of Care 170 mg/dL (70-110)
--- NOTE | 2020-04-15 12:29 | PM.PN ---
Subjective Subjective: Interval history: Shravan is sleepy but he wakes up and reports he is not in pain. Nurse relates he is coughing some, and is coughing up colored sputum. No blood. Medications: Reviewed: Yes Vitals/I&O/Wt Last Vital Signs Temp 97.7 F 04/15/20 11:14 Pulse 74 04/15/20 11:30 Resp 16 04/15/20 11:30 BP 111/69 04/15/20 11:14 Pulse Ox 97 04/15/20 11:30 04/14/20 04/15/20 04/15/20 22:59 06:59 14:59 Intake Total 290 / 650 350 / 1000 360 / 360 Output Total 600 / 800 1300 / 2100 Balance -310 / -150 -950 / -1100 360 / 360 Physical Exam Narrative: EXAM NARRATIVE: General exam no apparent distress Cardiovascular irregular, irregular rhythm Lungs a few faint expiratory wheezes. Diminished breath sounds at the bases Abdomen is soft nontender with positive bowel sounds Extremities no cyanosis clubbing or edema Urinary Catheter Management^: Mota: Cath Placed During This Visit: yes Reason for Continuing Indwelling Catheter: Accurate Measurement of Urinary Output in Critically Ill Patients Urinary Catheter Date of Insertion: 04/11/20 Urinary Catheter Time of Insertion: 01:45 Data : 04/15/20 04:41 04/15/20 04:41 A&P Assessment and plan (1) Sepsis: Changed to vancomycin and Zosyn April 14 from Rocephin and azithromycin Blood cultures negative to date White blood cell count decreased slightly Status: Acute (2) Community acquired pneumonia: Continue current IV antibiotics Right lower lobe infiltrate on chest x-ray. Will have speech therapy see as well in case this represents aspiration Wean oxygen as tolerated Await sputum culture, MRSA PCR Covid PCR - April 10 Status: Acute (3) Acute kidney injury: Resolved Continue to hold lisinopril Avoid nephrotoxic medications Status: Acute (4) CHF (congestive heart failure): History of heart failure with significantly reduced EF of 15%. Has cardiology follow-up in [place] regarding this. Continue Lasix 40 mg p.o. daily Status: Acute Qualifiers: Heart failure chronicity: unspecified Heart failure type: unspecified Qualified Code(s): I50.9 - Heart failure, unspecified (5) COPD (chronic obstructive pulmonary disease): Change to prednisone 40 mg daily Wean oxygen as tolerated Scheduled nebs Status: Inactive (6) Elevated troponin: Type II elevation Status: Acute (7) Atrial fibrillation and flutter: Continue Eliquis, carvedilol Status: Acute (8) Anemia: Stable Status: Acute (9) Diabetes: Sliding scale insulin Monitor FSG Status: Inactive (10) Acute hyperkalemia: Resolved Status: Acute (11) AICD (automatic cardioverter/defibrillator) present: Status: Inactive (12) Coronary artery disease: Stable currently Status: Inactive Additional A&P Information Full code Eliquis will suffice for DVT prophylaxis Attestations Medical Necessity Statement*: Needs continued hospitalization for IV antibiotics which were expanded recently secondary to worsening clinical course with increased oxygen requirement in this gentleman with right-sided pneumonia. Coding Level of Care Code Acute Coding Clerks Supervisor for Chg Fwd Diagnoses Sepsis A41.9 Community acquired pneumonia J18.9 Acute kidney injury N17.9 CHF (congestive heart failure) I50.9 Heart failure chronicity: unspecified Heart failure type: unspecified COPD (chronic obstructive pulmonary disease) J44.9 Elevated troponin R77.8 Atrial fibrillation and flutter I48.91; I48.92 Anemia D64.9 Diabetes E11.9 Acute hyperkalemia E87.5 AICD (automatic cardioverter/defibrillator) present Z95.810 Coronary artery disease I25.10
[2020-04-15] MEDS: ondansetron 2 mg/ML SDV 2 mL 4 MG IVP ×3 (12:36→20:57)
[2020-04-15 17:01] LABS: Glucose Point of Care 229 mg/dL (70-110)
[2020-04-15 20:57] LABS: Glucose Point of Care 139 mg/dL (70-110)
[2020-04-15] MEDS: atorvastatin 40 mg Tablet 80 MG PO (21:23)
[2020-04-16] VITALS (18 sets, daily range): BP systolic 106–134; BP diastolic 66–86; PULSE 69–117; RESP 15–20; TEMP 36.4–36.6; O2SAT 90–97
[2020-04-16] MEDS: metoclopramide 5 mg/mL SDV 2 mL 10 MG IVP (00:41)
[2020-04-16] MEDS: piperacillin-tazobactam 3.375 GM in sodium chloride 0.9% (plus) 50 ML IV ×3 (01:05→22:11)
[2020-04-16] MEDS: ipratropium-albuterol 3 mL Neb INHALATION ×6 (01:15→20:12)
--- NOTE | 2020-04-16 03:22 | ECG_ITS ---
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 Measurements Intervals [place] Rate: 109 P: VT: QRS: -45 QRSD: 102 T: 96 QT: 307 QTc: 413 Interpretive Statements ATRIAL FIBRILLATION WITH RAPID VENTRICULAR RESPONSE MARKED LEFT AXIS DEVIATION [QRS AXIS < -30] PATTERN CONSISTENT WITH PULMONARY DISEASE SEPTAL MYOCARDIAL INFARCTION [40+ ms Q WAVE IN V1/V2], OF INDETERMINATE AGE Compared to ECG 04/12/2020 00:21:25 No significant changes Electronically Signed On 04-16-2020 21:24:30 TAX COMMISSIONER by Jay Barton M.D. [id number]
--- NOTE | 2020-04-16 04:00 | PC.NURSE ---
Patient has been nauseous and vomiting since start of shift. RN administered zofran with no success. Dr. Negron notified with new orders for Reglan 10mg IVP once. 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 Doctor notified with an order for EKG. Patient is now resting well with vomiting subsiding.
[2020-04-16] MEDS: ondansetron 2 mg/ML SDV 2 mL 4 MG IVP ×2 (05:24→09:28)
[2020-04-16 06:32] LABS: Glucose Point of Care 176 mg/dL (70-110)
[2020-04-16 09:13] LABS: Basophils % 0.1 %; Hematocrit 42.1 % (42.0-52.0); Hemoglobin 13.8 g/dL (11.7-16.6); Mean Corpuscular HGB Conc 32.8 g/dL (30.0-36.0); Mean Corpuscular Hemoglobin 32.3 pg (28.0-34.0); Mean Corpuscular Volume 98.6 fL (80-94); Mean Platelet Volume 13.1 fL (7.4-10.4); Monocytes # 1.3 10^3/uL (0.2-0.9); Monocytes % 6.6 %; Neutrophils # 17.24 10^3/uL (1.8-7.7); Neutrophils % 87.5 %; Nucleated Red Blood Cells % 0 %; Platelet Count 216 10^3/cmm (130-400); Red Blood Count 4.27 10^6/uL (4.1-5.3); Red Cell Distribution Width 15.9 % (12.1-15.1); White Blood Count 19.7 10^3/uL (4.0-10.0)
[2020-04-16] MEDS: carvedilol 25 mg Tablet PO ×2 (09:35→17:48)
[2020-04-16] MEDS: FUROsemide 40 mg Tablet PO (09:35)
[2020-04-16] MEDS: allopurinol 100 mg Tablet PO (09:35)
[2020-04-16] MEDS: apixaban 5 mg Tablet PO (09:35)
[2020-04-16] MEDS: aspirin 81 mg Chew Tablet PO (09:35)
[2020-04-16 09:37] LABS: Anion Gap 14.2 (5-19); Blood Urea Nitrogen 44 mg/dL (8-23); Calcium 9.4 mg/dL (8.5-10.5); Carbon Dioxide 33 mmol/L (22-29); Chloride 101 mmol/L (98-107); Glomerular Filtration Rate 66.2 mL/min (90-130); Glucose 179 mg/dL (65-115); Osmolality Calculated 314 mOsm/kg (285-295); Potassium 4.2 mmol/L (3.5-5.1); Sodium 144 mmol/L (136-145)
[2020-04-16] MEDS: predniSONE 20 mg Tablet 40 MG PO (09:42)
[2020-04-16 09:54] LABS: Slide Review Slide Review Perform
--- NOTE | 2020-04-16 09:57 | XRR_ITS ---
PROCEDURE INFORMATION: Exam: XR Abdomen, 1 View Exam date and time: 04/16/2020 10:00 AM Age: 69 years old Clinical indication: Nausea and vomiting TECHNIQUE: Imaging protocol: XR of the abdomen. Views: Frontal supine view of the abdomen. 1 View. COMPARISON: CT chest abd pel wo con 04/11/2020 12:58 AM FINDINGS: Gastrointestinal tract: The stomach is distended with air. The bowel gas pattern is otherwise unremarkable. Bones/joints: Lumbar spine shows osteoarthritis XR/XR abdomen 1V* [id number] IMPRESSION: 1. The stomach is distended with air. 2. Otherwise negative examination
--- NOTE | 2020-04-16 09:58 | P.PN_ITS ---
Subjective Subjective: Interval history: Patient had some emesis when I entered the room. Slight amount of coffee-ground material was present. He reported he had to try to cough it up once it entered his mouth. He denies any abdominal pain. He has some baseline confusion making history somewhat difficult. No bowel movements are recorded. Medications: Reviewed: Yes Vitals/I&O/Wt Last Vital Signs Temp 97.5 F L 04/16/20 07:55 Pulse 110 H 04/16/20 08:32 Resp 16 04/16/20 08:32 BP 134/85 04/16/20 07:55 Pulse Ox 94 04/16/20 08:32 04/15/20 04/16/20 04/16/20 22:59 06:59 14:59 Intake Total 440 / 1386.667 400 / 400 Output Total 950 / 950 750 / 1700 Balance -510 / 436.667 -750 / -313.333 400 / 400 Physical Exam Narrative: EXAM NARRATIVE: General exam, coughing up some food, with some small amounts of coffee-ground material Cardiovascular irregular, irregular rhythm Lungs a few faint expiratory wheezes. Diminished breath sounds at the bases Abdomen is soft nontender with positive bowel sounds Extremities no cyanosis clubbing or edema Urinary Catheter Management^: Mota: Cath Placed During This Visit: yes Reason for Continuing Indwelling Catheter: Accurate Measurement of Urinary Output in Critically Ill Patients Urinary Catheter Date of Insertion: 04/11/20 Urinary Catheter Time of Insertion: 01:45 Data : 04/16/20 08:49 04/16/20 08:49 Micro: Microbiology 04/11/20 03:05 Blood Culture - Final Blood NO GROWTH AFTER 5 DAYS 04/11/20 03:08 Blood Culture - Final Blood NO GROWTH AFTER 5 DAYS 04/15/20 09:01 Gram Stain - Final Sputum - Expectorated Sputum A&P Assessment and plan (1) Sepsis: Changed to vancomycin and Zosyn April 14 from Rocephin and azithromycin. Continue current IV antibiotics Blood cultures negative to date White blood cell count still significantly elevated Status: Acute (2) Community acquired pneumonia: Continue current IV antibiotics Right lower lobe infiltrate on chest x-ray. Concern regarding aspiration. Speech therapy is consulted. Will make n.p.o. Wean oxygen as tolerated Await sputum culture Covid PCR - April 10 MRSA PCR pending Status: Acute (3) Acute kidney injury: Resolved Continue to hold lisinopril Avoid nephrotoxic medications Status: Acute (4) CHF (congestive heart failure): History of heart failure with significantly reduced EF of 15%. Has cardiology follow-up in [place] regarding this. Hold Lasix currently as I are making him n.p.o. Status: Acute Qualifiers: Heart failure chronicity: unspecified Heart failure type: unspecified Qualified Code(s): I50.9 - Heart failure, unspecified (5) COPD (chronic obstructive pulmonary disease): Continue prednisone 40 mg daily Wean oxygen as tolerated Scheduled nebs Status: Inactive (6) Elevated troponin: Type II elevation Status: Acute (7) Atrial fibrillation and flutter: Continue carvedilol. Rate slightly higher currently. Hold Eliquis secondary to coffee-ground emesis Status: Acute (8) Anemia: Stable Status: Acute (9) Diabetes: Sliding scale insulin Monitor FSG Status: Inactive (10) Acute hyperkalemia: Resolved Status: Acute (11) AICD (automatic cardioverter/defibrillator) present: Status: Inactive (12) Coronary artery disease: Stable currently Status: Inactive Additional A&P Information Coffee-ground emesis. He had a CT of his abdomen and pelvis on admission April 11. We will check plain film of abdomen today. Make n.p.o. Hold anticoagulants, antiplatelets. Protonix 40 mg twice daily Full code Eliquis will suffice for DVT prophylaxis Attestations Medical Necessity Statement*: Needs continued hospitalization for treatment of pneumonia with IV antibiotics and investigation of coffee-ground emesis. Coding Level of Care Code Acute Checker In for [facility] Fwd Diagnoses Sepsis A41.9 Community acquired pneumonia J18.9 Acute kidney injury N17.9 CHF (congestive heart failure) I50.9 Heart failure chronicity: unspecified Heart failure type: unspecified COPD (chronic obstructive pulmonary disease) J44.9 Elevated troponin R77.8 Atrial fibrillation and flutter I48.91; I48.92 Anemia D64.9 Diabetes E11.9 Acute hyperkalemia E87.5 AICD (automatic cardioverter/defibrillator) present Z95.810 Coronary artery disease I25.10
--- NOTE | 2020-04-16 11:07 | PC.SOCIAL ---
IMM Updated Updated pt on Pg 2 IMM. No questions voiced. Provided pt a copy. Signed, dated, & timed copy in chart.
[2020-04-16 11:23] LABS: Glucose Point of Care 195 mg/dL (70-110)
[2020-04-16] MEDS: sodium chloride 0.9% 1,000 ML 50 ML IV (12:04)
[2020-04-16 16:19] LABS: Glucose Point of Care 193 mg/dL (70-110)
[2020-04-16] MEDS: pantoprazole DR 40 mg Tablet PO (17:48)
[2020-04-16 21:07] LABS: Glucose Point of Care 221 mg/dL (70-110)
[2020-04-16] MEDS: atorvastatin 40 mg Tablet 80 MG PO (22:11)
[2020-04-16 23:28] LABS: Magnesium 1.9 mg/dL (1.7-2.3)
[2020-04-16] MEDS: vancomycin 1,250 MG/250 ML PIGGYBACK 200 MG IV (23:34)
[2020-04-17] VITALS (15 sets, daily range): BP systolic 99–121; BP diastolic 55–82; PULSE 65–108; RESP 15–21; TEMP 36.4–37; O2SAT 80–98
[2020-04-17] MEDS: ipratropium-albuterol 3 mL Neb INHALATION ×4 (00:12→11:23)
[2020-04-17 04:16] LABS: Basophils % 0.1 %; Hematocrit 41.3 % (42.0-52.0); Hemoglobin 13.6 g/dL (11.7-16.6); Lymphocytes # 0.7 10^3/uL (0.8-4.8); Lymphocytes % 4.7 %; Mean Corpuscular HGB Conc 32.9 g/dL (30.0-36.0); Mean Corpuscular Hemoglobin 32.2 pg (28.0-34.0); Mean Corpuscular Volume 97.9 fL (80-94); Mean Platelet Volume 13.4 fL (7.4-10.4); Monocytes # 0.7 10^3/uL (0.2-0.9); Monocytes % 5.3 %; Neutrophils # 12.46 10^3/uL (1.8-7.7); Neutrophils % 89.2 %; Nucleated Red Blood Cells % 0 %; Platelet Count 143 10^3/cmm (130-400); Red Blood Count 4.22 10^6/uL (4.1-5.3); Red Cell Distribution Width 15.6 % (12.1-15.1)
[2020-04-17 04:41] LABS: Alanine Aminotransferase 29 U/L (0-41); Albumin Level 3.1 g/dL (3.5-5.2); Alkaline Phosphatase 53 IU/L (40-130); Blood Urea Nitrogen 32 mg/dL (8-23); Calcium 8.5 mg/dL (8.5-10.5); Carbon Dioxide 27 mmol/L (22-29); Chloride 104 mmol/L (98-107); Globulin 1.8 g/dL (1.3-4.6); Glomerular Filtration Rate 83.4 mL/min (90-130); Glucose 110 mg/dL (65-115); Osmolality Calculated 304 mOsm/kg (285-295); Sodium 143 mmol/L (136-145); Total Bilirubin 0.4 mg/dL (0.15-1.2); Total Protein 4.9 g/dL (6.6-8.7)
[2020-04-17 04:50] LABS: Anion Gap 16.5 (5-19); Aspartate Amino Transferase 18 U/L (0-40); Potassium 4.5 mmol/L (3.5-5.1)
[2020-04-17] MEDS: piperacillin-tazobactam 3.375 GM in sodium chloride 0.9% (plus) 50 ML IV (05:14)
[2020-04-17] MEDS: sodium chloride 0.9% 1,000 ML 50 ML IV (05:16)
[2020-04-17 05:25] LABS: Slide Review Slide Review Perform
[2020-04-17 06:40] LABS: Glucose Point of Care 115 mg/dL (70-110)
--- NOTE | 2020-04-17 08:00 | FL_ITS ---
WS: [id number] Gastrografin evaluation of the stomach. HISTORY: Short of breath. Evaluate for gastroparesis. 120 mL of Gastrografin are given. Examination was performed by portable technique. No fluoroscopy. Bolt Sawyer radiograph reveals moderately distended stomach with air. There is also mild small bowel dilata tion. Patient drank the Gastrografin without difficulty. There is very little movement of the Gastrog rafin into the small bowel until the 5 hour radiograph. Even at 5 hours there is still moderate air d istention of the stomach. Majority but not all of the Gastrografin has moved into the small bowel at 5 hours. FL/FL upper GI gastrografin [id number] IMPRESSION: 1. Suspect moderate gastroparesis. 2. Delayed emptying of the stomach. No emptying of the stomach is noted to 5 ho urs. There is still moderate air distention of the stomach at 4 hours.
[2020-04-17] MEDS: carvedilol 25 mg Tablet PO ×2 (09:26→17:50)
[2020-04-17] MEDS: allopurinol 100 mg Tablet PO (09:26)
[2020-04-17] MEDS: pantoprazole DR 40 mg Tablet PO ×2 (09:27→17:49)
--- NOTE | 2020-04-17 09:27 | PC.SLP ---
LEAD ATG DEVELOPER monitoring current level of functioning: nursing stated pt continues with nausea/vomiting, no PO trials at this time
[2020-04-17] MEDS: diatrizoate meglumine 120 mL Sol PO (10:55)
[2020-04-17 11:10] LABS: Glucose Point of Care 108 mg/dL (70-110)
[2020-04-17 17:31] LABS: Glucose Point of Care 128 mg/dL (70-110)
--- NOTE | 2020-04-17 17:45 | P.DS_ITS ---
Discharge Providers Date of Admission: 04/11/20 01:15 Date of Discharge: April 17, 2020 Attending Provider at Admission: Perla Negron MD Attending Provider at Discharge: Jovon Kilpatrick Primary Care Provider: Elo Velasco MD Diagnoses at Discharge Discharge Diagnosis (1) Sepsis: Status: Acute (2) Community acquired pneumonia: Status: Acute (3) Acute kidney injury: Status: Acute (4) CHF (congestive heart failure): Status: Acute Qualifiers: Heart failure chronicity: unspecified Heart failure type: unspecified Qualified Code(s): I50.9 - Heart failure, unspecified (5) COPD (chronic obstructive pulmonary disease): Status: Inactive (6) Elevated troponin: Status: Acute (7) Atrial fibrillation and flutter: Status: Acute (8) Anemia: Status: Acute (9) Diabetes: Status: Inactive (10) Acute hyperkalemia: Status: Acute (11) AICD (automatic cardioverter/defibrillator) present: Status: Inactive (12) Coronary artery disease: Status: Inactive Reason for Visit Reason for Visit: SOB/ RESPIRATORY DISTRESS Hospital Course Hospital Course Pleasant 69-year-old gentleman with history of COPD, coronary disease, diabetes, AICD, severe chronic systolic congestive heart failure, reported EF 15% was admitted after presenting with not feeling right, with shortness of breath, presyncope,, in ER initially hypotensive, responsive to fluid resuscitation, was started on heparin drip due to consideration of PE, however, this was discontinued as he was doing well on room air at that time, D-dimer was unremarkable. In ER he was found to be in sepsis, with finding of left lower lobe pneumonia, started on ceftriaxone and azithromycin, subsequently with c oncern for aspiration on 04/14 antibiotic changed to Zosyn. His CHF appears compensated. On presentation with acute kidney injury, creatinine 2.7. His lisinopril, potassium, spironolactone and Lasix were held. Acute kidney injury improved. Hyperkalemia resolved with treatment. During hospitalization underwent additional assessment by CT chest abdomen pelvis. Due to episodes of nausea and vomiting was assessed by x-ray of abdomen on 04/16, with finding of stomach being distended with air. Due to noted some coffee-ground contents in emesis his anticoagulation was discontinued. He was continued on twice daily PPI. Due to concern of very low ejection fraction EGD was considered too risky. His hemoglobin remained stable. He underwent an upper GI Gastrografin study which showed suspected moderate gastroparesis, delayed emptying of the stomach, no emptying of stomach noted to 5 hours, still moderate air distention of stomach at 4 hours. He has been able to tolerate medications by mouth per report, however, anything more substantial does not stay down. He has been receiving gentle IV hydration. His sepsis overall has improved, he has persistent leukocytosis. Right lower lobe rhonchi noted on exam. COVID PCR is negative. Moderate normal sheri noted on sputum culture. Blood cultures have been negative. Urine bacterial antigens unremarkable. Unfortunately despite multiple discussions with staff, and this afternoon with myself he has decided that he would prefer to leave the hospital to spend [place] at home. We discussed, and he states he is aware of risk of worsening including worse pneumonia, recurrent aspiration, progression of sepsis, septic shock, and other complications including . Also concern is for underlying GI bleeding. He is found requiring 3 L of oxygen on home oxygen evaluation. This is ordered for him on discharge. He is also given prescription for antibiotic course to complete with Augmentin, as well as Reglan for gastroparesis. He would benefit from additional evaluation if he can be cleared by his scrub nurse for upper endoscopic evaluation. He is encouraged to let us know if he changes his mind to stay and continue his hospitalization, otherwise is encouraged to return as soon as possible or to see his primary care provider for reassessment and additional referrals. We also had extensive discussion regarding smoking cessation, with smoking putting him at risk of worsening pulmonary condition, although he says that is not going to happen . I have been smoking since I was 15. It is something I am proud of . He states he is aware of the reasons to quit smoking, and the risks involved. And also discussed not to ever smoke near oxygen, and he states I know better than that . His sister is picking him up from the hospital. I discussed concerns of premature discharge with her as well. She states that she will help him obtain his prescription medications, and will bring him back to ER in case there is any concern. Mota catheter is being removed on discharge. Physical Exam Const: COMMON NORMALS: no acute distress, patient oriented x3 and alert GENERAL APPEARANCE: cooperative, comfortable and frail appearing ORIENTATION/CONSCIOUSNESS: Yes awake OTHER: Sitting up in chair. In good spirits. Conversant. Nasal cannula on. HENMT: COMMON NORMALS: oropharynx normal Neck/C-Spine: COMMON NORMALS: no JVD Resp: COMMON NORMALS: normal respiratory effort AUSCULTATION: rhonchi right lower Cardio: COMMON NORMALS: no JVD, regular rhythm, S1 normal heart sound present, S2 normal heart sound present and No murmurs present (Cardio) RHYTHM: regular rhythm HEART SOUNDS: S1 normal heart sound present and S2 normal heart sound present GI: COMMON NORMALS: Normal to inspection, nondistended, normoactive bowel sounds present, Soft to palpation and non-tender PALPATION: Yes Soft to palpation Extremity: COMMON NORMALS: no joint enlargement and no pedal edema Neuro: COMMON NORMALS: patient oriented x3 and moves all extremities SENSORIUM/ORIENTATION: Yes alert Skin: COMMON NORMALS: no rashes or lesions noted GENERAL SKIN EXAM: no renetta hes or lesions noted OTHER: Chronic venous stasis changes. Urinary Catheter Management^: Mota: Cath Placed During This Visit: yes Reason for Continuing Indwelling Catheter: Acute Urinary Retention or Obstruction Urinary Catheter Date of Insertion: 04/11/20 Urinary Catheter Time of Insertion: 01:45 Discharge Data Data Completed and Pending: Completed Studies During Hospitalization Category Date Time Status CT chest abd pel wo con Stat Cat Scan 04/11/20 01:00 Completed [place] upper GI gastr ografin [id number] Rout ine Exams 04/17/20 08:00 Completed XR abdomen 1V* [id number] Routine Exams 04/16/20 09:57 Completed XR chest 1V kimmy ble [id number] Routine Exams 04/15/20 07:00 Completed XR chest 1V kimmy ble [id number] Urgent Exams 04/10/20 20:04 Completed Pending at discharge Category Date Time Status MRSA by PCR [place] [facility] 04/14/20 19:20 Received Labs from last 24 hours 04/17/20 04/17/20 04/17/20 16:02 10:54 06:26 WBC RBC Hgb Hct MCV MCH MCHC RDW Plt Count MPV Neut % (Auto) Lymph % (Auto) [place] % (Auto) Eos % (Auto) Baso % (Auto) Neut # (Auto) Lymph # (Auto) [place] # (Auto) Eos # (Auto) Baso # (Auto) Nucleated RBC % (a uto) Nucleated RBCs # Sodium Potassium Chloride Carbon Dioxide Anion Gap BUN Creatinine GFR Calculation Glucose POC Glucose 128 H 108 115 H Calculated Osmolal ity Calcium Magnesium Total Bilirubin AST ALT Alkaline Phosphata se Total Protein Albumin Globulin 04/17/20 04/17/20 04/16/20 03:06 03:06 20:56 WBC 14.0 H RBC 4.22 Hgb 13.6 Hct 41.3 L MCV 97.9 H MCH 32.2 MCHC 32.9 RDW 15.6 H Plt Count 143 MPV 13.4 H Neut % (Auto) 89.2 Lymph % (Auto) 4.7 [place] % (Auto) 5.3 Eos % (Auto) 0.0 Baso % (Auto) 0.1 Neut # (Auto) 12.46 H Lymph # (Auto) 0.7 L [place] # (Auto) 0.7 Eos # (Auto) 0.0 Baso # (Auto) 0.0 Nucleated RBC % (a uto) 0 Nucleated RBCs # 0.0 Sodium 143 Potassium 4.5 Chloride 104 Carbon Dioxide 27 Anion Gap 16.5 BUN 32 H Creatinine 0.9 GFR Calculation 83.4 L Glucose 110 POC Glucose 221 H Calculated Osmolal ity 304 H Calcium 8.5 Magnesium Total Bilirubin 0.4 AST 18 ALT 29 Alkaline Phosphata se 53 Total Protein 4.9 L Albumin 3.1 L Globulin 1.8 04/16/20 08:49 WBC RBC Hgb Hct MCV MCH MCHC RDW Plt Count MPV Neut % (Auto) Lymph % (Auto) [place] % (Auto) Eos % (Auto) Baso % (Auto) Neut # (Auto) Lymph # (Auto) [place] # (Auto) Eos # (Auto) Baso # (Auto) Nucleated RBC % (a uto) Nucleated RBCs # Sodium Potassium Chloride Carbon Dioxide Anion Gap BUN Creatinine GFR Calculation Glucose POC Glucose Calculated Osmolal ity Calcium Magnesium 1.9 Total Bilirubin AST ALT Alkaline Phosphata se Total Protein Albumin Globulin Vitals: Last Vital Signs Temp 97.5 F L 04/17/20 16:00 Pulse 107 H 04/17/20 16:00 Resp 16 04/17/20 16:00 BP 119/82 04/17/20 16:00 Pulse Ox 80 L 04/17/20 16:57 Discharge Plan Discharge Patient Disposition: Left Against Medical Advice Condition: Fair Prescriptions: New amoxicillin-pot clavulanate [Augmentin] 875-125 mg tablet 1 tab PO BID Qty: 14 RF: 0 metoclopramide HCl 5 mg/5 mL solution 5 mg PO AC Qty: 500 RF: 1 Continued atorvastatin 80 mg Tablet 80 mg PO DAILY@2029 RF: 0 carvedilol 25 mg Tablet 25 mg PO BID@999,0830 RF: 0 glipizide 10 mg Tablet 10 mg PO BID@999,2029 RF: 0 allopurinol 100 mg Tablet 100 mg PO DAILY@1000 RF: 0 pentoxifylline 400 mg Tablet Extended Release 400 mg PO TID@10,15,20 RF: 0 nitroglycerin 0.4 mg Tablet, Sublingual 0.4 mg SUBLINGUAL Q5M PRN (Reason: chest pains) RF: 0 alogliptin 25 mg Tablet 12.5 mg PO DAILY@999 RF: 0 ProAir HFA 90 mcg/actuation Hfa Aerosol Inhaler See Rx Instructions .ROUTE .COMPLEX RF: 0 pantoprazole 40 mg Tablet,Delayed Release (Dr/Ec) 40 mg PO BID@999,2029 Qty: 60 RF: 0 Changed isosorbide mononitrate 30 mg Tablet Extended Release 24 Hr 15 mg PO BID@999,2029 Qty: 0 RF: 0 Held furosemide 40 mg Tablet 40 mg PO DAILY@999 RF: 0 Hold Instructions: Resume on 04/20/20. spironolactone 25 mg Tablet 25 mg PO DAILY@999 RF: 0 Hold Instructions: Resume on 04/20/20. Nhi Chewable Aspirin 81 mg Tablet,Chewable 81 mg PO DAILY@1000 RF: 0 Hold Instructions: Resume on 04/24/20. lisinopril 5 mg Tablet 2.5 mg PO DAILY@1000 RF: 0 Hold Instructions: Resume on 04/20/20. potassium chloride 20 mEq Tablet Extended Release 20 meq PO BID@999,2029 RF: 0 Hold Instructions: Resume on 04/20/20. Discontinued Eliquis 5 mg Tablet 5 mg PO BID@999,2029 RF: 0 Discharge Orders: Discharge Order (Routine); Ordered 04/17/20 Ordered By: Jovon Kilpatrick Other Ambulatory Orders: DME: Oxygen (Order) Location: None Selected Ordered By: Jovon Kilpatrick Referrals: Elo Velasco MD [Primary Care Provider] - 4-7 days Discharge Diet: As Directed and Cardiac Discharge Activity: Increase activity as tolerated and Oxygen as instructed Patient Instructions: Metoclopramide (By mouth), Gastrointestinal Bleeding (GEN), Using Oxygen at Home (DC), Aspiration Pneumonia (GEN), Acute Nausea and Vomiting (GEN) Activity Restrictions/Additional Instructions: Please be aware that you are leaving the hospital prematurely, before your condi tion is fully diagnosed or treated, and you may be at risk of worsening her condition, severe disability and . May be at risk of worsening of pneumonia, progression to severe sepsis, septic shock. With concern for aspiration, you are at risk of recurrent aspiration events, and respiratory failure. Please note your oxygen level is also low and you are requiring oxygen currently. Also with concern for gastrointestinal bleeding, you are at risk of worsening bleeding, significant hemorrhage and cardiac arrest among other complications. His currently due to bleeding it is recommended that you not continue your blood thinner medications you are also at risk of conditions that may arise from not taking your blood thinners. You are encouraged to stay in the hospital continue your treatment, you are also encouraged if you change your mind to return to the hospital to resume your event are restarted, without any negative precautions. Please otherwise seek soonest available appointment with your primary care doctor for reassessment. Due to recurrent nausea, vomiting, with noted at least moderate gastroparesis (slowed down contractions and ineffective propulsion of your stomach) please space out food and drink into smaller snacks and sleeps throughout the day. Reglan may help with symptoms of gastroparesis and so a prescription is provided for you. Please note that this medication may sometimes lead to neurological side effects, uncontrolled movements. Please seek medical attention immediately if you experience these. Please note that your gastroparesis will need additional evaluation. Please also note that your upper gastrointestinal tract bleeding will need further evaluation with endoscopy. Please discuss with your primary care doctor to refer you for evaluation with gastroenterology or similar physician who may perform endoscopic evaluation. This will also be necessary to exclude cancer as the cause of your symptoms due to smoking history. Please maintain strict aspiration precautions at home. Please discuss with your primary care doctor to refer you for follow-up with speech therapy to help you avoid further aspiration (choking) events. Please stop smoking as this may contribute to worsening of your lung condition. Please also never smoke anywhere near oxygen due to severe fire hazard, risk of airway billings, other complications and . Please avoid any NSAIDs like ibuprofen, Aleve, etc. due to noted acute kidney injury on presentation. For now your lisinopril, spironolactone, Lasix and potassium are on hold until your kidney function can be reevaluated by her primary care provider. Discharge Attestations Time Spent in Discharge Care*: greater than 30 min Quality Metrics Clinical Quality Measures During this hospital stay, did patient experience: None Coding Level of Care Code Acute Corporate Tax Preparer for g Fwd Diagnoses Sepsis A41.9 Community acquired pneumonia J18.9 Acute kidney injury N17.9 CHF (congestive heart failure) I50.9 Heart failure chronicity: unspecified Heart failure type: unspecified COPD (chronic obstructive pulmonary disease) J44.9 Elevated troponin R77.8 Atrial fibrillation and flutter I48.91; I48.92 Anemia D64.9 Diabetes E11.9 Acute hyperkalemia E87.5 AICD (automatic cardioverter/defibrillator) present Z95.810 Coronary artery disease I25.10
== END 2020-04-17 18:45 | disposition home or self-care (01) | DRG 871 ==
LOC: ER 23:50 → ICU 04-11 03:46 → MEDSURG 04-13 22:13
PROVIDERS: Internal Medicine; Admitting Provider Internal Medicine; Emergency Provider Family Medicine; PCP Family Medicine; Visit Provider Internal Medicine
DX: A41.9 Sepsis, unspecified organism (principal); J18.9 Pneumonia, unspecified organism; N17.9 Acute kidney failure, unspecified; I48.92 Unspecified atrial flutter; J44.0 Chronic obstructive pulmonary disease with (acute) lower respiratory infection; I50.22 Chronic systolic (congestive) heart failure; I95.9 Hypotension, unspecified; E87.5 Hyperkalemia; I25.10 Atherosclerotic heart disease of native coronary artery without angina pectoris; E11.9 Type 2 diabetes mellitus without complications; Z95.810 Presence of automatic (implantable) cardiac defibrillator; D64.9 Anemia, unspecified; F17.210 Nicotine dependence, cigarettes, uncomplicated; Z79.01 Long term (current) use of anticoagulants; Z53.29 Procedure and treatment not carried out because of patient's decision for other reasons
CPT/HCPCS: 12345; 36415; 36416; 51702; 71045; 71250; 74018; 74176; 74240; 80048; 80053; 80202; 82962; 83605; 83735; 83880; 84145; 84484; 85025; 85049; 85378; 85610; 85730; 86140; 86403; 87040; 87070; 87205; 87426; 87449; 87635; 87641; 92610; 93005; 94640; 96372; 96375; 99282; J0610; J0696; J1644; J1815; J1940; J2060; J2405; J2543; J2550; J2765; J2920; J3370; J3535; J7030; J7512; Q0144; Q9963

== ENCOUNTER 2020-05-05 23:12 | Inpatient (IN) | payer MEDICARE, SELFPAY ==
[2020-05-05 23:16] VITALS: BP 95/66; PULSE 86; RESP 22; TEMP 36.6; O2SAT 95; BMI 28.1
--- NOTE | 2020-05-05 23:28 | CTR_ITS ---
PROCEDURE INFORMATION: Exam: CT Head Without Contrast Exam date and time: 05/05/2020 11:58 PM Age: 69 years old Clinical indication: Altered mental status/memory loss; Additional info: AMS, SOB, cough TECHNIQUE: Imaging protocol: Computed tomography of the head without contrast. Radiation optimization: All CT scans at this facility use at least one of these dose optimization techniques: automated exposure control; mA and/or kV adjustment per patient size (includes targeted exams where dose is matched to clinical indication); or iterative reconstruction. COMPARISON: No relevant prior studies available. RADIATION DOSE METRICS: Total DLP (mGy-cm): 859.51 FINDINGS: Brain: Left parietooccipital lobe chronic appearing infarct with some volume loss. Left basal ganglia chronic lacunar type infarct. Cerebral ventricles: No ventriculomegaly. Bones/joints: Unremarkable. No acute fracture. Paranasal sinuses: Visualized sinuses are unremarkable. No fluid levels. Mastoid air cells: Visualized mastoid air cells are well aerated. Soft tissues: Unremarkable. CT/CT head wo con* [id number] IMPRESSION: 1. Negative for intracranial hemorrhage or mass effect. 2. Left parietooccipital lobe chronic appearing infarct with some volume loss. 3. Left basal ganglia chronic lacunar type infarct. Radiation Dose CTDIVOL = (mGy): DLP = 859.51 (mGy-cm)
--- NOTE | 2020-05-05 23:28 | XRR_ITS ---
PROCEDURE INFORMATION: Exam: XR Chest, 1 View Exam date and time: 05/05/2020 11:39 PM Age: 69 years old Clinical indication: Cough and shortness of breath; Prior surgery; Surgery type: Pacemaker; Additional info: SOB TECHNIQUE: Imaging protocol: XR of the chest Views: 1 view. COMPARISON: CR XR chest 1V portable [id number] 04/15/2020 6:56 AM FINDINGS: Tubes, catheters and devices: A permanent pacemaker appears intact. Lungs: There is bibasilar subsegmental atelectasis which has developed since previous chest x-ray. Pleural space: There are also small bilateral pleural effusions. Heart/Mediastinum: The cardiac silhouette is enlarged but unchanged. Bones/joints: Unremarkable. XR/XR chest 1V portable [id number] IMPRESSION: 1. Stable cardiomegaly. 2. Small pleural effusions and bibasilar subsegmental atelectasis have arisen since previous chest x-ray.
--- NOTE | 2020-05-05 23:29 | ECG_ITS ---
[facility] Test Date: 2020-05-05 Pat Name: Shravan Ambrose Department: Room: Gender: Male V[employer] C[employer] Charge Hand: : 1950 Requested By: Tammi King Order Number: [id number] Nino MD: Jay Barton M.D. Measurements Intervals [place] Rate: 92 P: DE: QRS: -45 QRSD: 85 T: 137 QT: 329 QTc: 407 Interpretive Statements ATRIAL FIBRILLATION WITH ABERRANT CONDUCTION OR VENTRICULAR PREMATURE COMPLEXES LEFT AXIS DEVIATION [QRS AXIS < -30] NONSPECIFIC ST & T-WAVE ABNORMALITY Compared to ECG 04/16/2020 03:39:48 Ventricular premature complex(es) now present Aberrant conduction of supraventricular beat(s) now present T-wave abnormality now present Myocardial infarct finding no longer present Electronically Signed On 05-06-2020 21:34:18 COMPUTER MECHANIC by Jay Barton M.D. [id number]
--- NOTE | 2020-05-05 23:31 | W.ED.CHESTPA ---
HPI - Chest Pain General: Chief Complaint: Shortness of Breath/Dyspnea Stated Complaint: SOB Time Seen by Provider: 05/05/20 23:23 Source: patient and EMS Mode of arrival: EMS Limitations: no limitations History of Present Illness: HPI narrative: 69-year-old male is here by EMS. Patient was admitted here over [facility] and signed an AMA. Family states that since then he has been having increasing confusion and weakness. He states that he rarely gets out of bed. Patient states that he has difficulty ambulating and has confusion at times. He is able answer all my questions here appropriately although he is not a very good historian at all. He is able to tell me the year where he lives and where he is. He denies any fever. He states he has had a left-sided chest pain for about a week. He has had some slight dyspnea. Denies any vomiting or diarrhea. Associated symptoms: Reports dyspnea; Deny abdominal pain, fever(s), nausea or vomiting Review of Systems Const: Denies: fever(s), chills, body aches or change in appetite Eyes: Denies: blurry vision or eye discomfort ENMT: Denies: throat pain or dental pain Card: Reports: chest pain Resp: Reports: dyspnea GI: Denies: abdominal pain, nausea, vomiting or diarrhea : Denies: dysuria Musc: Denies: neck pain or back pain Skin/Breast: Denies: rash Neuro: Reports: weakness in extremities Psych: Denies: depression Jet/Lymph: Denies: easy bruising All/Imm: Denies: urticaria PFS ED PFSH: Medical History (Updated 05/06/20 @ 02:23 by Adriana Smith MD) Anemia Atrial fibrillation and flutter CHF (congestive heart failure) COPD (chronic obstructive pulmonary disease) Coronary artery disease Diabetes mellitus, type II Surgical History AICD (automatic cardioverter/defibrillator) present Family History Other Family history non-contributory Social History Smoking and tobacco status: current every day smoker cigarettes [ Other cigarette details: Smokes half a pack a day ] Alcohol intake: never Household members: other Details: Lives with his sister Housing: House Physical Exam Const: COMMON NORMALS: no acute distress, patient oriented x3 and healthy appearing HENMT: COMMON NORMALS: normocephalic and atraumatic HEAD & SCALP: normocephalic and atraumatic Eye: COMMON NORMALS: Equal, round and reactive pupils present and EOMs intact bilaterally PUPIL: Yes Equal, round and reactive pupils present Neck/C-Spine: COMMON NORMALS: full ROM and supple Chest: COMMONS NORMALS: normal inspection of the chest and normal palpation of entire chest wall Resp: COMMON NORMALS: normal respiratory effort, No retractions, No use of accessory muscles and clear to auscultation bilaterally AUSCULTATION: clear to auscultation bilaterally Cardio: COMMON NORMALS: regular rate, regular rhythm and No murmurs present (Cardio) RATE: regular rate RHYTHM: regular rhythm GI: COMMON NORMALS: Normal to inspection, nondistended, normoactive bowel sounds present, Soft to palpation, non-tender and no masses PALPATION: Yes Soft to palpation Extremity: COMMON NORMALS: normal to inspection and full ROM Neuro: COMMON NORMALS: patient oriented x3, moves all extremities and no focal motor deficits Psych: COMMON NORMALS: mental status grossly normal, Normal thought process present and cooperative THOUGHT PROCESS: Normal thought process present Skin: COMMON NORMALS: no rashes or lesions noted and no wounds GENERAL SKIN EXAM: no rashes or lesions noted Course Vital Signs: Vital signs: Vital Signs Temperature 97.8 F 05/05/20 23:16 Pulse Rate 87 05/06/20 02:00 Respiratory Rate 18 05/06/20 02:00 Blood Pressure 119/81 05/06/20 02:00 Pulse Oximetry 97 05/06/20 02:00 MDM - Chest Pain MDM Narrative: Medical decision making narrative: Shravan presents here with weakness and failure to thrive at home. X-ray shows likely bilateral lower lobe pneumonia. He does have a history of CHF as well. Patient on antibiotics. I spoke to hospitalist and will admit. Lab Data: Labs: Lab Results 05/05/20 05/05/20 05/05/20 Range/Units 23:52 23:52 23:52 WBC (4.0-10.0) 10^3/ uL RBC (4.1-5.3) 10^6/u L Hgb (11.7-16.6) g/dL Hct (42.0-52.0) % MCV (80-94) fL MCH (28.0-34.0) pg MCHC (30.0-36.0) g/dL RDW (12.1-15.1) % Plt Count (130-400) 10^3/c mm MPV (7.4-10.4) fL Neut % (Auto) % Lymph % (Auto) % [place] % (Auto) % Eos % (Auto) % Baso % (Auto) % Neut # (Auto) (1.8-7.7) 10^3/u L Lymph # (Auto) (0.8-4.8) 10^3/u L [place] # (Auto) (0.2-0.9) 10^3/u L Eos # (Auto) (0.0-0.8) 10^3/u L Baso # (Auto) (0.0-0.1) 10^3/u L Nucleated RBC % (a uto) % Nucleated RBCs # /100WBC PT 18.10 H (12.1-14.9) SECO NDS INR 1.44 H (0.8-1.2) Sodium 143 (136-145) mmol/L Potassium 4.5 (3.5-5.1) mmol/L Chloride 104 (98-107) mmol/L Carbon Dioxide 31 H (22-29) mmol/L Anion Gap 12.5 (5-19) BUN 10 (8-23) mg/dL Creatinine 0.9 (0.7-1.2) mg/dL GFR Calculation 83.4 L (90-130) mL/min Glucose 113 (65-115) mg/dL Calculated Osmolal ity 296 H (285-295) mOsm/k g Calcium 8.3 L (8.5-10.5) mg/dL Total Bilirubin 0.6 (0.15-1.2) mg/dL AST 20 (0-40) U/L ALT 8 (0-41) U/L Alkaline Phosphata se 82 (40-130) IU/L Ammonia 25 (16-60) umol/L Troponin T Baselin e (0-15) ng/L NT-Pro-B Natriuret Pep 3703 H (0-125) pg/mL Total Protein 5.8 L (6.6-8.7) g/dL Albumin 3.0 L (3.5-5.2) g/dL Globulin 2.8 (1.3-4.6) g/dL Ethyl Alcohol < 10 (0-10) mg/dL SARS-CoV-2 Ag (Rap id) (Negative) 05/05/20 05/05/20 05/06/20 Range/Units 23:52 23:58 00:47 WBC 9.4 (4.0-10.0) 10^3/ uL RBC 3.62 L (4.1-5.3) 10^6/u L Hgb 11.8 (11.7-16.6) g/dL Hct 37.0 L (42.0-52.0) % MCV 102.2 H (80-94) fL MCH 32.6 (28.0-34.0) pg MCHC 31.9 (30.0-36.0) g/dL RDW 15.9 H (12.1-15.1) % Plt Count 290 (130-400) 10^3/c mm MPV 11.6 H (7.4-10.4) fL Neut % (Auto) 76.6 % Lymph % (Auto) 12.6 % [place] % (Auto) 8.2 % Eos % (Auto) 1.8 % Baso % (Auto) 0.3 % Neut # (Auto) 7.15 (1.8-7.7) 10^3/u L Lymph # (Auto) 1.2 (0.8-4.8) 10^3/u L [place] # (Auto) 0.8 (0.2-0.9) 10^3/u L Eos # (Auto) 0.2 (0.0-0.8) 10^3/u L Baso # (Auto) 0.0 (0.0-0.1) 10^3/u L Nucleated RBC % (a uto) 0 % Nucleated RBCs # 0.0 /100WBC PT (12.1-14.9) SECO NDS INR (0.8-1.2) Sodium (136-145) mmol/L Potassium (3.5-5.1) mmol/L Chloride (98-107) mmol/L Carbon Dioxide (22-29) mmol/L Anion Gap (5-19) BUN (8-23) mg/dL Creatinine (0.7-1.2) mg/dL GFR Calculation (90-130) mL/min Glucose (65-115) mg/dL Calculated Osmolal ity (285-295) mOsm/k g Calcium (8.5-10.5) mg/dL Total Bilirubin (0.15-1.2) mg/dL AST (0-40) U/L ALT (0-41) U/L Alkaline Phosphata se (40-130) IU/L Ammonia (16-60) umol/L Troponin T Baselin e 50 H (0-15) ng/L NT-Pro-B Natriuret Pep (0-125) pg/mL Total Protein (6.6-8.7) g/dL Albumin (3.5-5.2) g/dL Globulin (1.3-4.6) g/dL Ethyl Alcohol (0-10) mg/dL SARS-CoV-2 Ag (Rap id) Negative (Negative) Imaging Data^: CT Head: Attestation: I personally reviewed and interpreted this imaging study as follows: Radiologist's impression: [address] [address] [address] Scan Report Signed Patient: Shravan Ambrose Unit #: [id number] : 1950 Age/Sex: 69 / M ADM Date: 05/05/20 Loc: ER Room/Bed: Attending Dr: Ordering Provider/Ordering MD: Tammi King MD Date of Service: 05/05/20 Procedure(s): CT head wo con* [id number] Accession Number(s): [id number] Report Number: [id number] PROCEDURE INFORMATION: Exam: CT Head Without Contrast Exam date and time: 05/05/2020 11:58 PM Age: 69 years old Clinical indication: Altered mental status/memory loss; Additional info: AMS, SOB, cough TECHNIQUE: Imaging protocol: Computed tomography of the head without contrast. Radiation optimization: All CT scans at this facility use at least one of these dose optimization techniques: automated exposure control; mA and/or kV adjustment per patient size (includes targeted exams where dose is matched to clinical indication); or iterative reconstruction. COMPARISON: No relevant prior studies available. RADIATION DOSE METRICS: Total DLP (mGy-cm): 859.51 FINDINGS: Brain: Left parietooccipital lobe chronic appearing infarct with some volume loss. Left basal ganglia chronic lacunar type infarct. Cerebral ventricles: No ventriculomegaly. Bones/joints: Unremarkable. No acute fracture. Paranasal sinuses: Visualized sinuses are unremarkable. No fluid levels. Mastoid air cells: Visualized mastoid air cells are well aerated. Soft tissues: Unremarkable. CT/CT head wo con* [id number] IMPRESSION: 1. Negative for intracranial hemorrhage or mass effect. 2. Left parietooccipital lobe chronic appearing infarct with some volume loss. 3. Left basal ganglia chronic lacunar type infarct. Radiation Dose CTDIVOL = (mGy): DLP = 859.51 (mGy-cm) EKG Data^: EKG 1: Attestation: I personally reviewed and interpreted this EKG as follows: EKG interpretation date: 05/05/20 EKG interpretation time: 23:33 Interpretation: afib hr [address] or t wave abnormalities qrs 85 qtc 378 Discharge Plan Discharge Patient Disposition: Admitted As Inpatient Admit Provider: Adriana Smith Clinical Impression: Congestive heart failure Community acquired pneumonia Qualifiers: Laterality: unspecified laterality Qualified Code(s): J18.9 - Pneumonia, unspecified organism Condition: Stable Coding Level of Care Code ED Mine Technician for [facility] Fwd Exam Comprehensive
[2020-05-06] VITALS (16 sets, daily range): BP systolic 86–127; BP diastolic 60–85; PULSE 75–100; RESP 15–23; TEMP 36.6–36.9; O2SAT 95–99
[2020-05-06 00:10] LABS: Basophils % 0.3 %; Eosinophils # 0.2 10^3/uL (0.0-0.8); Eosinophils % 1.8 %; Hemoglobin 11.8 g/dL (11.7-16.6); Lymphocytes # 1.2 10^3/uL (0.8-4.8); Lymphocytes % 12.6 %; Mean Corpuscular HGB Conc 31.9 g/dL (30.0-36.0); Mean Corpuscular Hemoglobin 32.6 pg (28.0-34.0); Mean Corpuscular Volume 102.2 fL (80-94); Mean Platelet Volume 11.6 fL (7.4-10.4); Monocytes # 0.8 10^3/uL (0.2-0.9); Monocytes % 8.2 %; Neutrophils # 7.15 10^3/uL (1.8-7.7); Neutrophils % 76.6 %; Nucleated Red Blood Cells % 0 %; Platelet Count 290 10^3/cmm (130-400); Red Blood Count 3.62 10^6/uL (4.1-5.3); Red Cell Distribution Width 15.9 % (12.1-15.1); White Blood Count 9.4 10^3/uL (4.0-10.0)
[2020-05-06 00:18] LABS: INR 1.44 (0.8-1.2)
[2020-05-06 00:26] LABS: Ammonia 25 umol/L (16-60)
[2020-05-06 00:28] LABS: Troponin(5th) Baseline 50 ng/L (0-15)
[2020-05-06 00:36] LABS: Alkaline Phosphatase 82 IU/L (40-130); Blood Urea Nitrogen 10 mg/dL (8-23); Calcium 8.3 mg/dL (8.5-10.5); Carbon Dioxide 31 mmol/L (22-29); Chloride 104 mmol/L (98-107); Globulin 2.8 g/dL (1.3-4.6); Glomerular Filtration Rate 83.4 mL/min (90-130); Glucose 113 mg/dL (65-115); NT Pro B Type Natriuretic Pept 3703 pg/mL (0-125); Osmolality Calculated 296 mOsm/kg (285-295); Sodium 143 mmol/L (136-145); Total Bilirubin 0.6 mg/dL (0.15-1.2); Total Protein 5.8 g/dL (6.6-8.7)
[2020-05-06 00:44] LABS: Alanine Aminotransferase 8 U/L (0-41); Alcohol Level < 10 mg/dL (0-10); Anion Gap 12.5 (5-19); Aspartate Amino Transferase 20 U/L (0-40); Potassium 4.5 mmol/L (3.5-5.1)
[2020-05-06] MEDS: sodium chloride 0.9% 1,000 ML 999 ML IV (00:53)
[2020-05-06 01:16] LABS: SARS Covid-2 Antigen Negative (Negative)
--- NOTE | 2020-05-06 01:29 | ECG_ITS ---
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 Measurements Intervals [place] Rate: 85 P: PA: QRS: -43 QRSD: 86 T: 154 QT: 343 QTc: 410 Interpretive Statements ATRIAL FIBRILLATION LEFT AXIS DEVIATION [QRS AXIS < -30] Poor R wave progression LOW QRS VOLTAGE IN PRECORDIAL LEADS [QRS DEFLECTION < 1.0 mV IN CHEST LEADS] NONSPECIFIC ST & T-WAVE ABNORMALITY Compared to ECG 05/05/2020 23:33:15 Low QRS voltage now present Ventricular premature complex(es) no longer present Aberrant conduction of supraventricular beat(s) no longer present T-wave abnormality still present Electronically Signed On 05-06-2020 21:42:50 TRESTLE MECHANIC by Jay Barton M.D. [id number]
[2020-05-06] MEDS: cefTRIAXone 1,000 MG in sodium chloride 0.9% (plus) 50 ML 100 MG IV (01:38)
[2020-05-06 02:01] LABS: Troponin 5 2HR 44.58 ng/L (0-15)
[2020-05-06 02:03] LABS: Troponin 5 2HR Delta -5.42 ABS# (0-10)
[2020-05-06] MEDS: azithromycin 500 MG in sodium chloride 0.9% 250 ML 250 MG IV (02:12)
--- NOTE | 2020-05-06 02:17 | P.HP_ITS ---
Providers/Chief Complaint Admitting Physician: Adriana Smith MD Primary Care Provider: lEo Velasco MD Chief Complaint: SOB History of Present Illness Shravan Ambrose is a 69 year old male who presented to the emergency room not feeling well. He was hospitalized here in March. He had pneumonia that was felt to very likely be aspiration pneumonia. He was having a lot of nausea and vomiting and had upper GI study suggestive of gastroparesis. He was started on Reglan. He had some coffee-ground emesis during that hospital stay and his Eliquis was stopped as was aspirin therapy. He cannot tell me if he has resumed it since then. He had some low blood pressures and Lasix and Aldactone as well as lisinopril were stopped. Again he is not sure if he has restarted these. He feels like he has filled up with fluid along the left side of his chest. He has frequent cough sometimes productive, sometimes not productive. He is still on oxygen and does continue to still smoke. He thinks he finished his antibiotics from last hospital stay but is not able to let me know for certain. He lives with his sister and she is the one who called for ambulance to bring him in. Sister is not presently available. No chest pain apart from the discomfort he has when he has a cough. Denies fever. Rapid Covid antigen was negative in the emergency room. He denies any known sick contacts with Covid. Chest x-ray does show a left-sided pleural effusion and possible infiltrate on the right side. BNP is slightly up from prior values. Of note patient left hospital the day b [facility] [place], wanting to get home for [place] while ongoing inpatient stay was recommended by physicians. He was discharged with oxygen therapy at that time. History was obtained from the patient though limited as he is unable to recall a lot of specific details. He indicated that he felt like he needed to come to the hospital but also indicated that it was not really a choice for him today as his family insisted that he come. Review of Systems Const: Reports: fatigue and malaise; Denies: fever(s), chills, change in appetite, change in weight or diaphoresis Eyes: Denies: change in vision ENMT: Denies: throat pain, dry mouth or nasal congestion Card: Reports: dyspnea on exertion and orthopnea; Denies: chest pain, palpitations, edema or swelling of feet/ankles Resp: Reports: dyspnea, productive cough, non-productive cough, wheezing and chest congestion; Denies: pain on inspiration or hemoptysis GI: Reports: nausea; Denies: abdominal pain, vomiting, coffee ground emesis, diarrhea or constipation : Denies: difficulty urinating or urinary frequency Musc: Reports: muscle weakness; Denies: joint redness Skin/Breast: Denies: rash or pruritus Neuro: Reports: weakness in extremities; Denies: headache(s), numbness in extremities or dizziness Psych: Reports: memory loss; Denies: anxiety or depression Jet/Lymph: Denies: easy bruising or easy bleeding Medications/Allergies Home Medications Medication Instructions Recorded Confirmed Last Taken Type albuterol sulfate [ProAir HFA] See Rx Instructions .ROUTE .COMPLEX 04/10/20 1 06/11/19 Unknown History allopurinol 100 mg PO DAILY@1000 04/10/20 04/10/20 04/10/20 History alogliptin 12.5 mg PO DAILY@99904/10/20 04/10/20 04/10/20 History apixaban [Eliquis] 5 mg PO BID@999,202904/10/20 04/10/20 04/10/20 History aspirin [Nhi Chewable Aspirin] 81 mg PO DAILY@99904/10/20 04/10/20 04/10/20 History atorvastatin 80 mg PO DAILY@202904/10/20 04/10/20 04/09/20 History carvedilol 25 mg PO BID@1000,0830 04/10/20 04/10/20 04/10/20 History furosemide 40 mg PO DAILY@99904/10/20 04/10/20 04/10/20 History glipizide 10 mg PO BID@1000,202904/10/20 04/10/20 04/10/20 History isosorbide mononitrate 30 mg PO BID@999,202904/10/20 04/10/20 04/10/20 History lisinopril 2.5 mg PO DAILY@99904/10/20 04/10/20 04/10/20 History nitroglycerin 0.4 mg SUBLINGUAL Q5M PRN 04/10/20 04/10/20 Unknown History pentoxifylline 400 mg PO TID@10,15,20 04/10/20 04/10/20 04/10/20 History potassium chloride 20 meq PO BID@1000,202904/10/20 04/10/20 04/10/20 History spironolactone 25 mg PO DAILY@1000 04/10/20 04/10/20 04/10/20 History pantoprazole 40 mg PO BID@1000,2029 #60 tab 04/17/20 Unknown Rx Allergies Allergy/AdvReac Type Severity Reaction Status Date / Time No Known Allergies Allergy Verified 04/10/20 19:09 Additional Medication Information Patient is unable to verify home medications that he is actually taking right now. At discharge last hospital stay, Lasix, potassium, spironolactone, lisinopril and Eliquis as well as aspirin were all held due to low blood pressures and coffee-ground emesis during the hospital stay. He was discharged with Reglan last hospital stay Isosorbide dose was changed at the time of last discharge from 30 mg daily to 15 mg twice a day PFSH Acute PFSH: Medical History (Updated 05/06/20 @ 03:00 by Adriana Smith MD) Atrial fibrillation and flutter CHF (congestive heart failure) COPD (chronic obstructive pulmonary disease) Coronary artery disease Diabetes mellitus, type II Surgical History AICD (automatic cardioverter/defibrillator) present Family History Other Family history non-contributory Social History Smoking and tobacco status: current every day smoker cigarettes [ Other cigarette details: Smokes half a pack a day ] Alcohol intake: never Household members: other Details: Lives with his sister Housing: House Vitals/I&O/Wt Last Vital Signs Temp 97.8 F 05/05/20 23:16 Pulse 87 05/06/20 02:00 Resp 18 05/06/20 02:00 BP 119/81 05/06/20 02:00 Pulse Ox 97 05/06/20 02:00 05/05/20 05/05/20 05/06/20 14:59 22:59 06:59 Intake Total 50 / 50 Balance 50 / 50 Weight last 48 hrs Weight 81.647 kg Physical Exam Const: OTHER: Alert, oriented to person and place and the fact that he needs to be in the hospital because something is not rate but difficult to get details from, cooperative HENMT: OTHER: Normocephalic atraumatic, some mild rhinorrhea noted, moist mucus membranes Eye: OTHER: Pupils equally round and reactive to light, extraocular movements intact Neck/C-Spine: OTHER: Supple Resp: OTHER: Decreased breath sounds noted left, scattered wheezes throughout, upper airway noise that improves with coughing, occasional paroxysms of coughing , no sputum production noted during my evaluation Cardio: OTHER: Irregularly irregular rhythm, distant heart sounds, pulses are equal but decreased GI: OTHER: Abdomen soft, nontender, mildly rotund but not distended, positive bowel sounds noted : OTHER: Deferred Extremity: NARRATIVE EXTREMITY EXAM: No pitting edema distal extremities, decreased muscle mass noted Neuro: OTHER: Face symmetric, speech clear, handgrip equal, no tremors Psych: OTHER: Normal affect Skin: OTHER: Skin is dry, scattered hypopigmentation alternating with areas of hypopigmentation from scalp to distal extremities, scattered mild ecchymoses primarily in the upper extremities, no acute rashes Data : 05/05/20 23:58 05/05/20 23:52 Other Labs: Laboratory Last Values WBC 9.4 10^3/uL (4.0-10.0) 05/05/20 23:58 RBC 3.62 10^6/uL (4.1-5.3) L 05/05/20 23:58 Hgb 11.8 g/dL (11.7-16.6) 05/05/20 23:58 Hct 37.0 % (42.0-52.0) L 05/05/20 23:58 MCV 102.2 fL (80-94) H 05/05/20 23:58 MCH 32.6 pg (28.0-34.0) 05/05/20 23:58 MCHC 31.9 g/dL (30.0-36.0) 05/05/20 23:58 RDW 15.9 % (12.1-15.1) H 05/05/20 23:58 Plt Count 290 10^3/cmm (130-400) 05/05/20 23:58 MPV 11.6 fL (7.4-10.4) H 05/05/20 23:58 Neut % (Auto) 76.6 % 05/05/20 23:58 Lymph % (Auto) 12.6 % 05/05/20 23:58 [place] % (Auto) 8.2 % 05/05/20 23:58 Eos % (Auto) 1.8 % 05/05/20 23:58 Baso % (Auto) 0.3 % 05/05/20 23:58 Neut # (Auto) 7.15 10^3/uL (1.8-7.7) 05/05/20 23:58 Lymph # (Auto) 1.2 10^3/uL (0.8-4.8) 05/05/20 23:58 [place] # (Auto) 0.8 10^3/uL (0.2-0.9) 05/05/20 23:58 Eos # (Auto) 0.2 10^3/uL (0.0-0.8) 05/05/20 23:58 Baso # (Auto) 0.0 10^3/uL (0.0-0.1) 05/05/20 23:58 Nucleated RBC % (auto) 0 % 05/05/20 23:58 Nucleated RBCs # 0.0 /100WBC 05/05/20 23:58 PT 18.10 SECONDS (12.1-14.9) H 05/05/20 23:52 INR 1.44 (0.8-1.2) H 05/05/20 23:52 Sodium 143 mmol/L (136-145) 05/05/20 23:52 Potassium 4.5 mmol/L (3.5-5.1) 05/05/20 23:52 Chloride 104 mmol/L (98-107) 05/05/20 23:52 Carbon Dioxide 31 mmol/L (22-29) H 05/05/20 23:52 Anion Gap 12.5 (5-19) 05/05/20 23:52 BUN 10 mg/dL (8-23) 05/05/20 23:52 Creatinine 0.9 mg/dL (0.7-1.2) 05/05/20 23:52 GFR Calculation 83.4 mL/min (90-130) L 05/05/20 23:52 Glucose 113 mg/dL (65-115) 05/05/20 23:52 Calculated Osmolality 296 mOsm/kg (285-295) H 05/05/20 23:52 Calcium 8.3 mg/dL (8.5-10.5) L 05/05/20 23:52 Total Bilirubin 0.6 mg/dL (0.15-1.2) 05/05/20 23:52 AST 20 U/L (0-40) 05/05/20 23:52 ALT 8 U/L (0-41) 05/05/20 23:52 Alkaline Phosphatase 82 IU/L (40-130) 05/05/20 23:52 Ammonia 25 umol/L (16-60) 05/05/20 23:52 Troponin T Baseline 50 ng/L (0-15) H 05/05/20 23:52 Troponin T 120 Minute 44.58 ng/L (0-15) H 05/06/20 01:35 Delta Troponin T -5.42 ABS# (0-10) L 05/06/20 01:35 NT-Pro-B Natriuret Pep 3703 pg/mL (0-125) H 05/05/20 23:52 Total Protein 5.8 g/dL (6.6-8.7) L 05/05/20 23:52 Albumin 3.0 g/dL (3.5-5.2) L 05/05/20 23:52 Globulin 2.8 g/dL (1.3-4.6) 05/05/20 23:52 Ethyl Alcohol < 10 mg/dL (0-10) 05/05/20 23:52 SARS-CoV-2 Ag (Rapid) Negative (Negative) 05/06/20 00:47 Micro: Microbiology 05/06/20 01:35 Blood Culture - Preliminary Blood SPECIMEN COLLECTED A&P Assessment and plan (1) Congestive heart failure: With left-sided pleural effusion Status: Acute Qualifiers: Heart failure type: systolic Heart failure chronicity: acute on chronic Qualified Code(s): I50.23 - Acute on chronic systolic (congestive) heart failure (2) Pneumonia: Suspected diagnosis at the time of admission, possibly aspiration involving right lower lobe Status: Acute Qualifiers: Pneumonia type: due to unspecified organism Laterality: right Lung location: lower lobe of lung Qualified Code(s): J18.9 - Pneumonia, unspecified organism (3) COPD (chronic obstructive pulmonary disease): Suspect exacerbation, acute on chronic as a contributing factor Status: Chronic Qualifiers: COPD type: COPD with acute exacerbation Qualified Code(s): J44.1 - Ch ronic obstructive pulmonary disease with (acute) exacerbation (4) Coffee ground emesis: noted in 03/2020, eliquis and aspirin held 04/17 due to this, does not appear to be acute recurrence Status: Acute (5) Gastroparesis: identified during hospital stay 03/2020, started on reglan, does not describe ongoing frequent vomiting presently Status: Acute (6) Diabetes mellitus, type II: Normally on alogliptin and glipizide Status: Chronic Qualifiers: 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: without half-way use Diabetes mellitus complication status: with circulatory complication Diabetes mellitus complication detail: with other circulatory complications Qualified Code(s): E11.59 - Type 2 diabetes mellitus with other circulatory complications (7) Atrial fibrillation and flutter: Currently rate controlled, chronically on carvedilol, had been prescribed Eliquis though stopped last hospital stay due to coffee-ground emesis as noted above Status: Chronic (8) Coronary artery disease: Chronic diagnosis, does not appear to be acute, details unknown Status: Chronic (9) Macrocytic anemia: With stable H&H compared to last hospital stay Status: Chronic Additional A&P Information Inpatient admission IV diuresis, monitoring blood pressures and response closely Strict I's and O's and daily weights Check echocardiogram Continue serial cardiac enzymes and EKGs Continue carvedilol, low-dose lisinopri, aspirin and atorvastatin Continue oxygen which patient is on at home since 03/2020 Pulmonary toilet as needed Short course of prednisone as long as no recurrent coffee ground emesis Check procalcitonin Antibiotic coverage with Levaquin and Zosyn for now Zofran as needed Consider resumption of Reglan if demonstrating evidence of gastroparesis again this hospital stay Need to clarify his home medication list in particular whether or not he is actually back on his Eliquis, given coffee-ground emesis last hospital stay I have not resumed Eliquis presently until I can get more clarification Lovenox for DVT prophylaxis currently Low-dose insulin presently for diabetes PT evaluation given degree of weakness reported Supportive care otherwise Need to see if we can get some clarification from his sister in the morning Allow natural as per discussion with him although he would want treatment up to that point. We talked about CPR and intubation and he expressed the desire not to have either one of them. Attestations Medical Necessity Statement*: Anticipated stay greater than 2 midnights in this gentleman presenting with increasing shortness of breath and other issues as noted above. Plans are as indicated. Comorbid medical conditions make for challenging management. Coding Level of Care Code Acute Tax Credit Leasing Consultant for [place] Diagnoses Congestive heart failure I50.23 Heart failure type: systolic Heart failure chronicity: acute on chronic Pneumonia J18.9 Pneumonia type: due to unspecified organism Laterality: right Lung location: lower lobe of lung COPD (chronic obstructive pulmonary disease) J44.1 COPD type: COPD with acute exacerbation Coffee ground emesis K92.0 Gastroparesis K31.84 Diabetes mellitus, type II E11.59 Diabetes mellitus half-way insulin use: without petroleum terminal plant operator use Diabetes mellitus complication status: with circulatory complication Diabetes mellitus complication detail: with other circulatory c omplications Atrial fibrillation and flutter I48.91; I48.92 Coronary artery disease I25.10 Macrocytic anemia D53.9
[2020-05-06] MEDS: FUROsemide 10 mg/mL SDV 2mL 20 MG IVP ×2 (03:31→15:44)
[2020-05-06] MEDS: enoxaparin 40 mg/0.4 mL Syringe SUBCUT (03:31)
[2020-05-06] MEDS: levofloxacin-dextrose 5 % 750 MG/150 ML PREMIX 100 MG IV (03:32)
[2020-05-06 03:36] LABS: Procalcitonin 0.09 ng/mL (0-0.5)
--- NOTE | 2020-05-06 03:41 | PC.NURSE ---
Patient is able to answer most questions. He is unable to tell me what pharmacy he uses and what medications he takes at home. He is able to tell me that he does not have any allergies, what his name is, how old he is, and that he is in the hospital. He answers incorrectly to year and reason for being in the hospital.
--- NOTE | 2020-05-06 04:06 | PC.NURSE ---
Patient stated earlier that he was not in pain. He now states that he hurts all over. He refused Tylenol stating I think I'll be alright.
[2020-05-06] MEDS: piperacillin-tazobactam 3.375 GM in sodium chloride 0.9% (plus) 50 ML IV ×3 (04:44→20:14)
--- NOTE | 2020-05-06 05:24 | PC.NURSE ---
Patient states you can't even in peace. Patient was asked if he has any thoughts of hurting hisself and stated no. Patient states but if it's my time to go, I wanna go.
--- NOTE | 2020-05-06 05:29 | ECG_ITS ---
[facility] Test Date: 2020-05-06 Pat Name: Shravan Ambrose Department: Room: 111 Gender: Male Social Work Specialist: WINSTON JORGENSEN: 1950 Requested By: Tammi King Order Number: [id number] Nino MD: Jay Barton M.D. Measurements Intervals [place] Rate: 90 P: AR: QRS: -47 QRSD: 102 T: 139 QT: 340 QTc: 417 Interpretive Statements Atrial fibrillation with rapid ventricular rate LEFT ANTERIOR FASCICULAR BLOCK [QRS AXIS <= -45, QR IN I, RS IN II] NONSPECIFIC T-WAVE ABNORMALITY Compared to ECG 05/06/2020 02:09:04 Left anterior fascicular block now present Left-axis deviation no longer present T-wave abnormality still present Electronically Signed On 05-06-2020 21:43:50 CALL OR CONTACT CENTRE OPERATOR by Jay Barton M.D. [id number]
[2020-05-06 05:52] LABS: Troponin 5 6HR 48.55 ng/L (0-15)
[2020-05-06 06:00] LABS: Troponin 5 6HR Delta -1.45 ng/L (0-12)
--- NOTE | 2020-05-06 06:00 | USCV_ITS ---
Shravan Ambrose Age: 69 Gender: M : 1950 Exam Date: 05/06/2020 06:29 Ordering Phys: Adriana Smith MD Technologist: Aislinn Mcclelland Exam Location: [facility] – [place] Indication: CHF BP: 109 / 69 HR: 77 Rhythm: Sinus Technical Quality: Adequate MEASUREMENTS (Male / Female) Normal Values 2D ECHO LV Diastolic Diameter PLAX 5.4 cm 4.2 - 5.9 / 3.9 - 5.3 cm LV Systolic Diameter PLAX 3.4 cm LV Chamber Size 4.4 cm IVS Diastolic Thickness 1.2 cm 0.6 - 1.0 / 0.6 - 0.9 cm IVS Systolic Thickness 1.7 cm LVPW Diastolic Thickness 1.8 cm 0.6 - 1.0 / 0.6 - 0.9 cm LVPW Systolic Thickness 2.4 cm RV Chamber Size 2.5 cm LVOT Diameter 2.0 cm LV Ejection Fraction 2D Teich 65.6 % LV Ejection Fraction MOD 2C 39.6 % LV Ejection Fraction 2C AL 40.9 % LA Diameter 3.9 cm LA Width 2.9 cm LA Height 5.6 cm RA Width 4.1 cm RA Height 3.9 cm Aorta at Sinotubular Diameter 3.6 cm M-MODE LV Diastolic Diameter MM 6.6 cm 4.2 - 5.9 / 3.9 - 5.3 cm LV Systolic Diameter MM 5.9 cm LV Ejection Fraction MM Teich 21.5 % IVS Diastolic Thickness MM 1.2 cm 0.6 - 1.0 / 0.6 - 0.9 cm IVS Systolic Thickness MM 1.5 cm LVPW Diastolic Thickness MM 1.7 cm 0.6 - 1.0 / 0.6 - 0.9 cm LVPW Systolic Thickness MM 2.2 cm Aortic Annulus Diameter 3.8 cm LA Ao Ratio MM 1.1 MV E Point Septal Separation 1.3 cm FINDINGS Left Ventricle Dilated left ventricular cavity. Severely decreased left ventricle systolic function. Left ventricular ejection fraction is estimated at 25-30 %. There is severe diffuse hypokinesis with relative sparing of basal inferolateral wall. Right Ventricle Probably normal right ventricle size and systolic function. Pacemaker/ICD wire visualized in the right ventricle. Right Atrium Normal right atrial size. Pacemaker/ICD wire visualized in the right atrium. Left Atrium Mildly increased left atrial size. Mitral Valve Mildly thickened mitral valve. Aortic Valve Aortic valve not well visualized. Tricuspid Valve Structurally normal tricuspid valve. Pulmonic Valve Pulmonic valve not well visualized. Pericardium Trivial to small pericardial effusion. Aorta Normal-sized aortic root. CONCLUSIONS 1. This is a limited and technically difficult echocardiogram. 2. Dilated left ventricular cavity. Severely decreased left ventricle systolic function. Left ventricular ejection fraction is estimated at 25-30 %. There is severe diffuse hypokinesis with relative sparing of basal inferolateral wall. 3. Probably normal right ventricle size and systolic function 4. No prior similar studies to compare. Estrella Vo MD (Electronically Signed) Final Date: 06 May 2020 19:39 S
[2020-05-06 06:49] LABS: Glucose Point of Care 153 mg/dL (70-110)
[2020-05-06] MEDS: aspirin 81 mg EC Tablet PO (09:21)
[2020-05-06] MEDS: pantoprazole DR 40 mg Tablet PO ×2 (09:22→17:34)
[2020-05-06] MEDS: allopurinol 100 mg Tablet PO (09:22)
[2020-05-06] MEDS: predniSONE 20 mg Tablet 40 MG PO (09:22)
[2020-05-06] MEDS: potassium chloride ER 20 mEq Tablet PO (09:23)
[2020-05-06] MEDS: lisinopril 2.5 mg Tablet PO (09:59)
--- NOTE | 2020-05-06 10:14 | PC.NURSE ---
med rec confirmed with sister Heather Ronald
[2020-05-06] MEDS: ipratropium-albuterol 3 mL Neb INHALATION ×2 (10:15→15:17)
[2020-05-06 12:08] LABS: Glucose Point of Care 113 mg/dL (70-110)
--- NOTE | 2020-05-06 12:37 | PM.PN ---
Subjective Subjective: Interval history: Chart reviewed, VSS, afebrile, on 3 L NC. Resting quietly in bed, on 3 L NC, low to low-normal BP currently. No complaints. Medications: Reviewed: Yes Medication Review Details: Active Medications Generic Name Dose Route Start Last Admin Trade Name Freq PRN Reason Stop Dose Admin Acetaminophen 650 mg 05/06/20 02:58 Acetaminophen 32 5 Mg Tablet PO Q6H PRN Mild/Mod Pain Or Temp >/= 101 Albuterol/Ipratrop ium 3 ml 05/06/20 02:58 05/06/20 10:15 Ipratropium-Albu terol 3 Ml Neb INHALATION 3 ml Q6H PRN Administration SHORTNESS OF WALLY TH Allopurinol 100 mg 05/06/20 09:00 05/06/20 09:22 Allopurinol 100 Mg Tablet PO 100 mg DAILY ARIANA Administration Aspirin 81 mg 05/06/20 09:00 05/06/20 09:21 Aspirin 81 Mg Ec Tablet PO 81 mg DAILY ARIANA Administration Atorvastatin Calci um 80 mg 05/06/20 21:00 Atorvastatin 40 Mg Tablet PO BEDTIME ARIANA Bisacodyl 10 mg 05/06/20 02:58 Bisacodyl 5 Mg T ablet PO DAILY PRN CONSTIPATION Carvedilol 25 mg 05/06/20 09:00 05/06/20 09:59 Carvedilol 25 Mg Tablet PO Not Given ARIANA Dextrose 25 ml 05/06/20 02:58 Dextrose 50% Syr jose 50 Ml IVP ONCE PRN hypoglycemia prot ocol Protocol Dextrose 50 ml 05/06/20 02:58 Dextrose 50% Syr jose 50 Ml IVP PRN PRN hypoglycemia prot ocol Protocol Enoxaparin Sodium 40 mg 05/06/20 03:00 05/06/20 03:31 Enoxaparin 40 Mg /0.4 Ml Syringe SUBCUT 40 mg Q24H ARIANA Administration Furosemide 20 mg 05/06/20 03:00 05/06/20 03:31 Furosemide 10 Mg /Ml Sdv 2ml IVP 20 mg Q12H ARIANA Administration Glucagon 1 mg 05/06/20 02:58 Glucagon 1 Mg/Ml Inj 1 Ml IM ONCE PRN Adult Acute Hypog lycemia Prot. Protocol Dextrose 500 mls @ 100 mls /hr 05/06/20 02:58 D5w IV ONCE PRN Adult Acute Hypog lycemia Prot Protocol Levofloxacin/Dextr ose 750 mg in 150 mls @ 100 mls/hr 05/06/20 03:30 05/06/20 04:45 Levaquin-D5w IV 0 mls/hr Q24H ARIANA Infusion Protocol Piperacillin Sod/T azobactam 50 mls @ 12.5 mls /hr 05/06/20 04:00 05/06/20 09:00 Sod 3.375 gm/ So dium Chloride IV Infused Q8H ARIANA Infusion Protocol Insulin Aspart 0 unit 05/06/20 21:00 Insulin Aspart 1 00 Unit/1 Ml SUBCUT BEDTIME AIRANA Protocol Insulin Aspart 0 unit 05/06/20 08:00 05/06/20 12:13 Insulin Aspart 1 00 Unit/1 Ml SUBCUT Not Given [facility] Protocol Isosorbide Mononit rate 30 mg 05/06/20 09:00 05/06/20 09:[address] [place] itrate Er 30 Mg Ta blet PO Not Given DAILY ARIANA Lisinopril 2.5 mg 05/06/20 09:00 05/06/20 09:59 Lisinopril 2.5 M g Tablet PO 2.5 mg DAILY ARIANA Administration Ondansetron HCl 4 mg 05/06/20 02:58 Ondansetron 2 Mg /Ml Sdv 2 Ml IVP Q8H PRN vomiting, or N/V if npo Pantoprazole Sodiu m 40 mg 05/06/20 09:00 05/06/20 09:[address] 40 Mg Tablet PO 40 mg BID ARIANA Administration Potassium Chloride 20 meq 05/06/20 09:00 05/06/20 09:23 Potassium Chlori de Er 20 Meq Table t PO 20 meq DAILY ARIANA Administration Prednisone 40 mg 05/06/20 09:00 05/06/20 09:22 Prednisone 20 Mg Tablet PO 05/10/20 09:01 40 mg DAILY ARIANA Administration No Known Allergies Allergy (Verified 05/06/20 03:43) Vitals/I&O/Wt Last Vital Signs Temp 98.4 F 05/06/20 02:58 Pulse 100 05/06/20 10:25 Resp 20 H 05/06/20 10:25 BP 104/64 05/06/20 10:00 Pulse Ox 98 05/06/20 10:25 05/05/20 05/06/20 05/06/20 22:59 06:59 14:59 Intake Total 1521.667 / 1521.667 150 / 150 Balance 1521.667 / 1521.667 150 / 150 Weight last 48 hrs Weight 84.459 kg Weight 84.459 kg Weight 81.647 kg Physical Exam Const: COMMON NORMALS: no acute distress, patient oriented x3 and alert GENERAL APPEARANCE: cooperative and comfortable ORIENTATION/CONSCIOUSNESS: Yes awake OTHER: -resting quietly in bed HENMT: COMMON NORMALS: normocephalic, atraumatic, hearing grossly normal bilaterally and moist oral mucous membranes HEAD & SCALP: normocephalic and atraumatic Eye: COMMON NORMALS: Equal, round and reactive pupils present, EOMs intact bilaterally and conjunctivae normal CONJUNCTIVA: Yes conjunctivae normal PUPIL: Yes Equal, round and reactive pupils present Neck/C-Spine: COMMON NORMALS: full ROM GENERAL: Yes normal visual inspection and Yes trachea midline Resp: COMMON NORMALS: normal respiratory effort, No retractions, No use of accessory muscles and clear to auscultation bilaterally EFFORT & INSPECTION: Yes able to speak in complete sentences, Yes symmetric chest movement and No tachypneic AUSCULTATION: clear to auscultation bilaterally OTHER: -on 3 L NC Cardio: COMMON NORMALS: regular rate, regular rhythm, S1 normal heart sound present, S2 normal heart sound present and No murmurs present (Cardio) RATE: regular rate RHYTHM: regular rhythm HEART SOUNDS: S1 normal heart sound present and S2 normal heart sound present GI: COMMON NORMALS: Normal to inspection, nondistended, normoactive bowel sounds present, Soft to palpation and non-tender PALPATION: Yes Soft to palpation Extremity: COMMON NORMALS: normal to inspection, full ROM and no clubbing, cyanosis or edema; negative for no pedal edema Neuro: COMMON NORMALS: patient oriented x3, moves all extremities, no focal motor deficits and no sensory deficits noted SENSORIUM/ORIENTATION: Yes alert Psych: COMMON NORMALS: mental status grossly normal, Normal thought process present, cooperative, normal affect and speech normal SPEECH: Yes normal speech THOUGHT PROCESS: Normal thought process present Skin: COMMON NORMALS: no rashes or lesions noted, no jaundice, no petechiae and no mottling GENERAL SKIN EXAM: no rashes or lesions noted Data : 05/05/20 23:58 05/05/20 23:52 Micro: Microbiology 05/06/20 05:20 Blood Culture - Preliminary Blood SPECIMEN COLLECTED 05/06/20 01:35 Blood Culture - Preliminary Blood SPECIMEN COLLECTED A&P Assessment and plan (1) Pneumonia: -question of aspiration, noted during last admission as well -continue antibiotics (Levaquin, Zosyn) -continue to monitor respiratory status, supplemental oxygen as needed -no leukocytosis, pro-calcitonin wnl -f/u blood cx -rapid COVID-19 negative Status: Acute Qualifiers: Laterality: right Lung location: lower lobe of lung Pneumonia type: due to unspecified organism Qualified Code(s): J18.9 - Pneumonia, unspecified organism (2) Congestive heart failure: -acute CHF exacerbation as evidenced by dyspnea, BNP elevation (3703), evidence of effusion on CXR -Echo: EF=25-30%, severe diffuse hypokinesis with relative sparing of basal inferolateral wall. Reportedly has EF=15% and was to undergo further cardiac workup but opted for early discharge instead -continue IV diuresis with lasix -monitor Is & Os, daily weights -VSS; continue to monitor Status: Acute Qualifiers: Heart failure chronicity: acute on chronic Heart failure type: systolic Qualified Code(s): I50.23 - Acute on chronic systolic (congestive) heart failure (3) Diabetes mellitus, type II: -check A1c -ISS, hypoglycemia precautions, accucheks -cardiac consistent carb diet as tolerated Status: Chronic Qualifiers: Diabetes mellitus complication detail: with other circulatory complications Diabetes mellitus complication status: with circulatory complication Diabetes mellitus chcf insulin use: without long term care pharmacist use Qualified Code(s): E11.59 - Type 2 diabetes mellitus with other circulatory complications (4) COPD (chronic obstructive pulmonary disease): -oxygen dependent at baseline, 3 L NC -continue steroids, Neb treatments as needed Status: Chronic Qualifiers: COPD type: COPD with acute exacerbation Qualified Code(s): J44.1 - Chronic obstructive pulmonary disease with (acute) exacerbation (5) Coronary artery disease: -continue ASA, ACEi, Imdur, statin -troponins somewhat elevated though no significant delta Status: Chronic Qualifiers: Associated angina: angina presence unspecified Coronary Disease-Associated Artery/Lesion type: [place] artery [place] vs. transplanted heart: [place] heart Qualified Code(s): I25.10 - Atherosclerotic heart disease of [place] coronary artery without angina pectoris (6) Atrial fibrillation and flutter: -AC (Eliquis) discontinued during last admission due to noted GI bleed. Unclear if patient actually stopped this medication -telemetry monitoring -continue coreg Status: Chronic (7) Gastroparesis: -per endoscopic evaluation -had been d/c on reglan, vomiting seems to have subsided Status: Chronic Additional A&P Information -Macrocytic anemia; H/H stable -Generalized weakness; PT evaluation, fall precautions -UA negative -GI ppx with PPI -DVT ppx with Lovenox -Dispo: home -Code status: DNR/DNI Attestations Medical Necessity Statement*: Patient requires hospitalization for continued IV diuresis and antibiotic treatment secondary to acute CHF exacerbation and pneumonia respectively. Time Spent in Patient Care: 16 - 35 minutes (>than 50% of time spent in counselling and/or direct pt care on unit). Coding Level of Care Code Acute Hospital Fellow for Chg Fwd Exam Comprehensive Diagnoses Pneumonia J18.9 Laterality: right Lung location: lower lobe of lung Pneumonia type: due to unspecified organism Congestive heart failure I50.23 Heart failure chronicity: acute on chronic Heart failure type: systolic Diabetes mellitus, type II E11.59 Diabetes mellitus complication detail: with other circulatory complications Diabetes mellitus complication status: with circulatory complication Diabetes mellitus chcf insulin use: without chcf use COPD (chronic obstructive pulmonary disease) J44.1 COPD type: COPD with acute exacerbation Coronary artery disease I25.10 Associated angina: angina presence unspecified Coronary Disease-Associated Artery/Lesion type: [place] artery [place] vs. transplanted heart: [place] heart Atrial fibrillation and flutter I48.91; I48.92 Gastroparesis K31.84
--- NOTE | 2020-05-06 12:55 | PC.NURSE ---
patient is incontinent of urine unable to accurately measure out put
--- NOTE | 2020-05-06 12:58 | PC.NURSE ---
patient walking in [place] with PT at this time tolerating well no distress noted
--- NOTE | 2020-05-06 16:37 | PC.NURSE ---
verbal instructions given from Dr orta to place morfin for accurate intake and out out while patient is on diuretics
[2020-05-06 16:50] LABS: Add Urine Microscopic? NO
[2020-05-06 16:51] LABS: Glucose Point of Care 154 mg/dL (70-110)
[2020-05-06 17:00] LABS: Bilirubin Urine Neg (Negative); Blood Urine Neg (Negative); Glucose Urine UA Norm (Normal); Ketones Urine Negative (Negative); Leukocyte Esterase Urine Negative (Negative); Nitrate Urine Negative (Negative); Protein Urine Neg (Negative); Urine Appearance Clear (CLEAR); Urine Color Yellow (Yellow); Urobilinogen Urine Norm (Negative); pH Urine 5 (5-7)
[2020-05-06] MEDS: atorvastatin 40 mg Tablet 80 MG PO (20:14)
[2020-05-06] MEDS: carvedilol 25 mg Tablet PO (20:14)
[2020-05-06 21:08] LABS: Glucose Point of Care 404 mg/dL (70-110)
[2020-05-07] VITALS (14 sets, daily range): BP systolic 90–117; BP diastolic 56–69; PULSE 80–104; RESP 14–29; TEMP 36.2–36.9; O2SAT 92–99
[2020-05-07] MEDS: FUROsemide 10 mg/mL SDV 2mL 20 MG IVP ×2 (02:48→17:36)
[2020-05-07] MEDS: enoxaparin 40 mg/0.4 mL Syringe SUBCUT (02:49)
[2020-05-07] MEDS: levofloxacin-dextrose 5 % 750 MG/150 ML PREMIX 100 MG IV (02:49)
[2020-05-07] MEDS: piperacillin-tazobactam 3.375 GM in sodium chloride 0.9% (plus) 50 ML IV ×3 (04:20→21:48)
[2020-05-07 04:56] LABS: Blood Urea Nitrogen 11 mg/dL (8-23); Calcium 8.3 mg/dL (8.5-10.5); Carbon Dioxide 28 mmol/L (22-29); Chloride 103 mmol/L (98-107); Glomerular Filtration Rate 95.6 mL/min (90-130); Glucose 128 mg/dL (65-115); Magnesium 1.4 mg/dL (1.7-2.3); Osmolality Calculated 295 mOsm/kg (285-295); Phosphorus 2.9 mg/dL (2.5-4.5); Sodium 142 mmol/L (136-145)
[2020-05-07 06:05] LABS: Estmated Average Glucose 134; Hemoglobin A1C 6.3 % (4.0-6.0)
[2020-05-07] MEDS: ipratropium-albuterol 3 mL Neb INHALATION ×3 (07:28→19:58)
[2020-05-07 07:38] LABS: Glucose Point of Care 102 mg/dL (70-110)
--- NOTE | 2020-05-07 08:55 | P.PN_ITS ---
Subjective Subjective: Interval history: Had 1000 mL urine output overnight, BP stable, afebrile, on 2 L NC. Resting quietly in bed, no complaints, no acute overnight events reported. Medications: Reviewed: Yes Medication Review Details: Active Medications Generic Name Dose Route Start Last Admin Trade Name Freq PRN Reason Stop Dose Admin Acetaminophen 650 mg 05/06/20 02:58 Acetaminophen 32 5 Mg Tablet PO Q6H PRN Mild/Mod Pain Or Temp >/= 101 Albuterol/Ipratrop ium 3 ml 05/06/20 02:58 05/07/20 07:28 Ipratropium-Albu terol 3 Ml Neb INHALATION 3 ml Q6H PRN Administration SHORTNESS OF WALLY TH Allopurinol 100 mg 05/06/20 09:00 05/06/20 09:22 Allopurinol 100 Mg Tablet PO 100 mg DAILY ARIANA Administration Aspirin 81 mg 05/06/20 09:00 05/06/20 09:21 Aspirin 81 Mg Ec Tablet PO 81 mg DAILY ARIANA Administration Atorvastatin Calci um 80 mg 05/06/20 21:00 05/06/20 20:14 Atorvastatin 40 Mg Tablet PO 80 mg BEDTIME ARIANA Administration Bisacodyl 10 mg 05/06/20 02:58 Bisacodyl 5 Mg T ablet PO DAILY PRN CONSTIPATION Carvedilol 25 mg 05/06/20 09:00 05/06/20 20:14 Carvedilol 25 Mg Tablet PO 25 mg ARIANA Administration Dextrose 25 ml 05/06/20 02:58 Dextrose 50% Syr jose 50 Ml IVP ONCE PRN hypoglycemia prot ocol Protocol Dextrose 50 ml 05/06/20 02:58 Dextrose 50% Syr jose 50 Ml IVP PRN PRN hypoglycemia prot ocol Protocol Enoxaparin Sodium 40 mg 05/06/20 03:00 05/07/20 02:49 Enoxaparin 40 Mg /0.4 Ml Syringe SUBCUT 40 mg Q24H ARIANA Administration Furosemide 20 mg 05/06/20 03:00 05/07/20 02:48 Furosemide 10 Mg /Ml Sdv 2ml IVP 20 mg Q12H ARIANA Administration Glucagon 1 mg 05/06/20 02:58 Glucagon 1 Mg/Ml Inj 1 Ml IM ONCE PRN Adult Acute Hypog lycemia Prot. Protocol Dextrose 500 mls @ 100 mls /hr 05/06/20 02:58 D5w IV ONCE PRN Adult Acute Hypog lycemia Prot Protocol Levofloxacin/Dextr ose 750 mg in 150 mls @ 100 mls/hr 05/06/20 03:30 05/07/20 04:20 Levaquin-D5w IV Infused Q24H ARIANA Infusion Protocol Piperacillin Sod/T azobactam 50 mls @ 12.5 mls /hr 05/06/20 04:00 05/07/20 04:20 Sod 3.375 gm/ So dium Chloride IV 12.5 mls/hr Q8H ARIANA Administration Protocol Insulin Aspart 0 unit 05/06/20 21:00 05/06/20 20:28 Insulin Aspart 1 00 Unit/1 Ml SUBCUT 9 unit BEDTIME ARIANA Administration Protocol Insulin Aspart 0 unit 05/06/20 08:00 05/06/20 17:34 Insulin Aspart 1 00 Unit/1 Ml SUBCUT 6 unit TIDWM ARIANA Administration Protocol Isosorbide Mononit rate 30 mg 05/06/20 09:00 05/06/20 09:59 Isosorbide [place] itrate Er 30 Mg Ta blet PO Not Given DAILY ARIANA Lisinopril 2.5 mg 05/06/20 09:00 05/06/20 09:59 Lisinopril 2.5 M g Tablet PO 2.5 mg DAILY ARIANA Administration Ondansetron HCl 4 mg 05/06/20 02:58 Ondansetron 2 Mg /Ml Sdv 2 Ml IVP Q8H PRN vomiting, or N/V if npo Pantoprazole Sodiu m 40 mg 05/06/20 09:00 05/06/20 17:[address] 40 Mg Tablet PO 40 mg BID ARIANA Administration Potassium Chloride 20 meq 05/07/20 09:00 Potassium Chlori de Er 20 Meq Table t PO BID ARIANA Prednisone 40 mg 05/06/20 09:00 05/06/20 09:22 Prednisone 20 Mg Tablet PO 05/10/20 09:01 40 mg DAILY ARIANA Administration No Known Allergies Allergy (Verified 05/06/20 03:43) Vitals/I&O/Wt Last Vital Signs Temp 97.2 F L 05/07/20 08:30 Pulse 95 05/07/20 08:30 Resp 18 05/07/20 08:30 BP 90/56 05/07/20 08:30 Pulse Ox 98 05/07/20 08:30 05/06/20 05/07/20 05/07/20 22:59 06:59 14:59 Intake Total 650 / 920 590 / 1510 Output Total 1000 / 1000 Balance 650 / 920 -410 / 510 Weight last 48 hrs Weight 84.368 kg Weight 84.459 kg Weight 84.459 kg Weight 81.647 kg Physical Exam Const: COMMON NORMALS: no acute distress, patient oriented x3 and alert GENERAL APPEARANCE: cooperative and comfortable ORIENTATION/CONSCIOUSNESS: Yes awake OTHER: -resting quietly in bed HENMT: COMMON NORMALS: normocephalic, atraumatic, hearing grossly normal bilaterally and moist oral mucous membranes HEAD & SCALP: normocephalic and atraumatic Eye: COMMON NORMALS: Equal, round and reactive pupils present, EOMs intact bilaterally and conjunctivae normal CONJUNCTIVA: Yes conjunctivae normal PUPIL: Yes Equal, round and reactive pupils present Neck/C-Spine: COMMON NORMALS: full ROM GENERAL: Yes normal visual inspection and Yes trachea midline Resp: COMMON NORMALS: normal respiratory effort, No retractions, No use of accessory muscles and clear to auscultation bilaterally EFFORT & INSPECTION: Yes able to speak in complete sentences, Yes symmetric chest movement and No tachypneic AUSCULTATION: clear to auscultation bilaterally OTHER: -on 2 L NC Cardio: COMMON NORMALS: regular rate, regular rhythm, S1 normal heart sound present, S2 normal heart sound present and No murmurs present (Cardio) RATE: regular rate RHYTHM: regular rhythm HEART SOUNDS: S1 normal heart sound present and S2 normal heart sound present GI: COMMON NORMALS: Normal to inspection, nondistended, normoactive bowel sounds present, Soft to palpation and non-tender PALPATION: Yes Soft to palpation Extremity: COMMON NORMALS: normal to inspection, full ROM and no clubbing, cyanosis or edema; negative for no pedal edema Neuro: COMMON NORMALS: patient oriented x3, moves all extremities, no focal motor deficits and no sensory deficits noted SENSORIUM/ORIENTATION: Yes alert Psych: COMMON NORMALS: mental status grossly normal, Normal thought process present, cooperative, normal affect and speech normal SPEECH: Yes normal speech THOUGHT PROCESS: Normal thought process present Skin: COMMON NORMALS: no rashes or lesions noted, no jaundice, no petechiae and no mottling GENERAL SKIN EXAM: no rashes or lesions noted Urinary Catheter Management^: Mota: Cath Placed During This Visit: yes Reason for Continuing Indwelling Catheter: Accurate Measurement of Urinary Output in Critically Ill Patients Urinary Catheter Date of Insertion: 05/06/20 Urinary Catheter Time of Insertion: 16:15 Data : 05/05/20 23:58 05/07/20 03:45 Micro: Microbiology 05/06/20 05:20 Blood Culture - Preliminary Blood NEGATIVE TO DATE 05/06/20 01:35 Blood Culture - Preliminary Blood NEGATIVE TO DATE A&P Assessment and plan (1) Pneumonia: -question of aspiration, noted during last admission as well -continue antibiotics (Levaquin, Zosyn) -continue to monitor respiratory status, supplemental oxygen as needed -no leukocytosis, pro-calcitonin wnl -blood cx: prelim negative -rapid COVID-19 negative Status: Acute Qualifiers: Laterality: right Lung location: lower lobe of lung Pneumonia type: due to unspecified organism Qualified Code(s): J18.9 - Pneumonia, unspecified organism (2) Congestive heart failure: -acute CHF exacerbation as evidenced by dyspnea, BNP elevation (3703), evidence of effusion on CXR -Echo: EF=25-30%, severe diffuse hypokinesis with relative sparing of basal inferolateral wall. Reportedly has EF=15% and was to undergo further cardiac workup but opted for early discharge instead -continue IV diuresis with lasix -continue to monitor Is & Os, daily weights -VSS; continue to monitor Status: Acute Qualifiers: Heart failure chronicity: acute on chronic Heart failure type: systolic Qualified Code(s): I50.23 - Acute on chronic systolic (congestive) heart failure (3) Diabetes mellitus, type II: -A1c-6.2 -ISS, hypoglycemia precautions, accucheks -cardiac consistent carb diet as tolerated Status: Chronic Qualifiers: Diabetes mellitus complication detail: with other circulatory complications Diabetes mellitus complication status: with circulatory complication Diabetes mellitus salvage determiner insulin use: without salvage determiner use Qualified Code(s): E11.59 - Type 2 diabetes mellitus with other circulatory complications (4) COPD (chronic obstructive pulmonary disease): -oxygen dependent at baseline, 3 L NC -continue steroids, Neb treatments as needed Status: Chronic Qualifiers: COPD type: COPD with acute exacerbation Qualified Code(s): J44.1 - Chronic obstructive pulmonary disease with (acute) exacerbation (5) Coronary artery disease: -continue ASA, ACEi, Imdur, statin -troponins somewhat elevated though no significant delta Status: Chronic Qualifiers: Associated angina: angina presence unspecified Coronary Disease- Associated Artery/Lesion type: [place] artery [place] vs. transplanted heart: [place] heart Qualified Code(s): I25.10 - Atherosclerotic heart disease of [place] coronary artery without angina pectoris (6) Atrial fibrillation and flutter: -AC (Eliquis) discontinued during last admission due to noted GI bleed. Unclear if patient actually stopped this medication -telemetry monitoring -continue coreg Status: Chronic (7) Gastroparesis: -per endoscopic evaluation -had been d/c on reglan, vomiting seems to have subsided Status: Chronic Additional A&P Information -Macrocytic anemia; H/H stable -Generalized weakness; PT evaluation, fall precautions -UA negative -GI ppx with PPI -DVT ppx with Lovenox -Dispo: home -Code status: DNR/DNI Attestations Medical Necessity Statement*: Patient requires hospitalization for continued IV diuresis, treatment of pneumonia. Time Spent in Patient Care: 16 - 35 minutes (>than 50% of time spent in counselling and/or direct pt care on unit) . Coding Level of Care Code Acute Net Developer Software Engineer C for Chg Fwd Exam Comprehensive Diagnoses Pneumonia J18.9 Laterality: right Lung location: lower lobe of lung Pneumonia type: due to unspecified organism Congestive heart failure I50.23 Heart failure chronicity: acute on chronic Heart failure type: systolic Diabetes mellitus, type II E11.59 Diabetes mellitus complication detail: with other circulatory complications Diabetes mellitus complication status: with circulatory complication Diabetes mellitus fdc insulin use: without fdc use COPD (chronic obstructive pulmonary disease) J44.1 COPD type: COPD with acute exacerbation Coronary artery disease I25.10 Associated angina: angina presence unspecified Coronary Disease-Associated Artery/Lesion type: [place] artery [place] vs. transplanted heart: [place] heart Atrial fibrillation and flutter I48.91; I48.92 Gastroparesis K31.84
[2020-05-07] MEDS: predniSONE 20 mg Tablet 40 MG PO (09:19)
[2020-05-07] MEDS: aspirin 81 mg EC Tablet PO (09:20)
[2020-05-07] MEDS: potassium chloride ER 20 mEq Tablet PO ×2 (09:20→17:37)
[2020-05-07] MEDS: pantoprazole DR 40 mg Tablet PO ×2 (09:20→17:37)
[2020-05-07] MEDS: allopurinol 100 mg Tablet PO (09:20)
[2020-05-07] MEDS: lisinopril 2.5 mg Tablet PO (09:25)
--- NOTE | 2020-05-07 09:29 | PC.CHAP ---
Pastoral Care Encounter/Spiritual Assessment Type of Contact [] Declined sewing machines salesperson visit [] Patient/Family/Request visit [] Outpatient visit [] Follow-up visit [] Physician referral [] Code/Alert [x] Routine visit [] Staff referral [] Actively dying [] Patient sleeping [] Family support [] [] Out of room [] Palliative care [] [] Receiving care in room [] Pre-surgical visit [] Trauma [] Long length of stay [] ICU visit [] Other: Relational/Emotional Strength [] Patient feels connected with others/family/visitors/staff [] Distress [] Loneliness/isolation [] Abandonment Spirituality of Patient [] Person of Gwendolyn [] Attends Sikh of their Gwendolyn [] Believes in Prayer [] Reads Bible or Jainism materials [] There are Spiritual issues to be addressed Golf Stud Riveter Interventions [x] Prayer [x] Active listening [x] Non-anxious presence [x] Spiritual/emotional support [] Crisis/trauma care [] Spiritual counseling [] Bereavement support [] Provided bereavement packet [] Provided Bible/devotional materials [] Provided toy/stuffed animal, coloring book to patient or family member [] Provided Communion [] Anointing/[place] [] Salvation [x] Completed spiritual assessment [] Other: Impact on Illness or Injury [] Angry [] Fearful [] Anxious [] Often cries [] Exhaustion [] Unable to work [] Unable to attend sabianism [] Unable to walk/stand [] Unable to read [] Unable to drive [] Unable to eat/drink [] Unable to sleep [] Unable to be with family [] Patient intubated [] Other: Summary patient rest well Time spent with patient 5 min
[2020-05-07 10:52] LABS: Glucose Point of Care 111 mg/dL (70-110)
--- NOTE | 2020-05-07 11:57 | PC.RESP ---
Smoking Cessation and Pulmonary Rehab packet sent to patient.
[2020-05-07 16:53] LABS: Glucose Point of Care 317 mg/dL (70-110)
--- NOTE | 2020-05-07 20:00 | PC.NURSE ---
Received bedside report from Adina Villalba RN. Patient up to [facility]. Assisted patient to bed. Used lift sheet to lift up in bed. Patient expressed being unhappy with his doctor. Informed patient that doctor was working in his best interest. Patient acknowledged understanding however did not improve his opinion of him. Discussed night time medications. Patient verbalized understanding. Patient denies pain or other needs at this time. No distress observed.
[2020-05-07] MEDS: atorvastatin 40 mg Tablet 80 MG PO (21:48)
--- NOTE | 2020-05-07 21:52 | PC.NURSE ---
Medication administration delay due to mock code scenario on 2A
[2020-05-07 23:36] LABS: Glucose Point of Care 338 mg/dL (70-110)
[2020-05-08] VITALS (15 sets, daily range): BP systolic 93–106; BP diastolic 55–65; PULSE 69–97; RESP 14–22; TEMP 36.4–36.8; O2SAT 94–98
[2020-05-08] MEDS: enoxaparin 40 mg/0.4 mL Syringe SUBCUT (03:16)
[2020-05-08] MEDS: levofloxacin-dextrose 5 % 750 MG/150 ML PREMIX 100 MG IV (03:16)
[2020-05-08] MEDS: FUROsemide 10 mg/mL SDV 2mL 20 MG IVP (03:16)
[2020-05-08] MEDS: piperacillin-tazobactam 3.375 GM in sodium chloride 0.9% (plus) 50 ML IV ×3 (04:42→21:03)
[2020-05-08 05:51] LABS: Blood Urea Nitrogen 14 mg/dL (8-23); Calcium 8.4 mg/dL (8.5-10.5); Carbon Dioxide 27 mmol/L (22-29); Chloride 104 mmol/L (98-107); Glomerular Filtration Rate 73.9 mL/min (90-130); Glucose 103 mg/dL (65-115); Magnesium 1.8 mg/dL (1.7-2.3); Osmolality Calculated 293 mOsm/kg (285-295); Phosphorus 2.1 mg/dL (2.5-4.5); Sodium 141 mmol/L (136-145)
[2020-05-08 06:04] LABS: Anion Gap 13.6 (5-19); Potassium 3.6 mmol/L (3.5-5.1)
[2020-05-08 06:54] LABS: Glucose Point of Care 134 mg/dL (70-110)
[2020-05-08] MEDS: ipratropium-albuterol 3 mL Neb INHALATION ×3 (08:21→21:28)
[2020-05-08] MEDS: FUROsemide 40 mg Tablet PO ×2 (09:28→16:22)
[2020-05-08] MEDS: lisinopril 2.5 mg Tablet PO (09:30)
[2020-05-08] MEDS: aspirin 81 mg EC Tablet PO (09:30)
[2020-05-08] MEDS: carvedilol 6.25 mg Tablet 3.125 MG PO ×2 (09:30→21:02)
[2020-05-08] MEDS: potassium chloride ER 20 mEq Tablet PO ×2 (09:31→18:20)
[2020-05-08] MEDS: pantoprazole DR 40 mg Tablet PO ×2 (09:31→18:20)
[2020-05-08] MEDS: predniSONE 20 mg Tablet 40 MG PO (09:31)
[2020-05-08] MEDS: isosorbide mononitrate ER 30 mg Tablet PO (09:31)
[2020-05-08] MEDS: allopurinol 100 mg Tablet PO (09:31)
--- NOTE | 2020-05-08 10:01 | PM.PN ---
Subjective Subjective: Interval history: URine output 800 cc, currently on NC 2.5lpm, saturating 94%, complains of dyspnea this morning Medications: Reviewed: Yes Medication Review Details: Active Medications Generic Name Dose Route Start Last Admin Trade Name Freq PRN Reason Stop Dose Admin Acetaminophen 650 mg 05/06/20 02:58 Acetaminophen 32 5 Mg Tablet PO Q6H PRN Mild/Mod Pain Or Temp >/= 101 Albuterol/Ipratrop ium 3 ml 05/06/20 02:58 05/07/20 07:28 Ipratropium-Albu terol 3 Ml Neb INHALATION 3 ml Q6H PRN Administration SHORTNESS OF WALLY TH Allopurinol 100 mg 05/06/20 09:00 05/06/20 09:22 Allopurinol 100 Mg Tablet PO 100 mg DAILY ARIANA Administration Aspirin 81 mg 05/06/20 09:00 05/06/20 09:21 Aspirin 81 Mg Ec Tablet PO 81 mg DAILY ARIANA Administration Atorvastatin Calci um 80 mg 05/06/20 21:00 05/06/20 20:14 Atorvastatin 40 Mg Tablet PO 80 mg BEDTIME ARIANA Administration Bisacodyl 10 mg 05/06/20 02:58 Bisacodyl 5 Mg T ablet PO DAILY PRN CONSTIPATION Carvedilol 25 mg 05/06/20 09:00 05/06/20 20:14 Carvedilol 25 Mg Tablet PO 25 mg ARIANA Administration Dextrose 25 ml 05/06/20 02:58 Dextrose 50% Syr jose 50 Ml IVP ONCE PRN hypoglycemia prot ocol Protocol Dextrose 50 ml 05/06/20 02:58 Dextrose 50% Syr jose 50 Ml IVP PRN PRN hypoglycemia prot ocol Protocol Enoxaparin Sodium 40 mg 05/06/20 03:00 05/07/20 02:49 Enoxaparin 40 Mg /0.4 Ml Syringe SUBCUT 40 mg Q24H ARIANA Administration Furosemide 20 mg 05/06/20 03:00 05/07/20 02:48 Furosemide 10 Mg /Ml Sdv 2ml IVP 20 mg Q12H ARIANA Administration Glucagon 1 mg 05/06/20 02:58 Glucagon 1 Mg/Ml Inj 1 Ml IM ONCE PRN Adult Acute Hypog lycemia Prot. Protocol Dextrose 500 mls @ 100 mls /hr 05/06/20 02:58 D5w IV ONCE PRN Adult Acute Hypog lycemia Prot Protocol Levofloxacin/Dextr ose 750 mg in 150 mls @ 100 mls/hr 05/06/20 03:30 05/07/20 04:20 Levaquin-D5w IV Infused Q24H ARIANA Infusion Protocol Piperacillin Sod/T azobactam 50 mls @ 12.5 mls /hr 05/06/20 04:00 05/07/20 04:20 Sod 3.375 gm/ So dium Chloride IV 12.5 mls/hr Q8H ARIANA Administration Protocol Insulin Aspart 0 unit 05/06/20 21:00 05/06/20 20:28 Insulin Aspart 1 00 Unit/1 Ml SUBCUT 9 unit BEDTIME ARIANA Administration Protocol Insulin Aspart 0 unit 05/06/20 08:00 05/06/20 17:34 Insulin Aspart 1 00 Unit/1 Ml SUBCUT 6 unit TIDWM ARIANA Administration Protocol Isosorbide Mononit rate 30 mg 05/06/20 09:00 05/06/20 09:59 Isosorbide [place] itrate Er 30 Mg Ta blet PO Not Given DAILY ARIANA Lisinopril 2.5 mg 05/06/20 09:00 05/06/20 09:59 Lisinopril 2.5 M g Tablet PO 2.5 mg DAILY ARIANA Administration Ondansetron HCl 4 mg 05/06/20 02:58 Ondansetron 2 Mg /Ml Sdv 2 Ml IVP Q8H PRN vomiting, or N/V if npo Pantoprazole Sodiu m 40 mg 05/06/20 09:00 05/06/20 17:[address] 40 Mg Tablet PO 40 mg BID ARIANA Administration Potassium Chloride 20 meq 05/07/20 09:00 Potassium Chlori de Er 20 Meq Table t PO BID ARIANA Prednisone 40 mg 05/06/20 09:00 05/06/20 09:22 Prednisone 20 Mg Tablet PO 05/10/20 09:01 40 mg DAILY ARIANA Administration No Known Allergies Allergy (Verified 05/06/20 03:43) Vitals/I&O/Wt Last Vital Signs Temp 98.3 F 05/08/20 08:18 Pulse 81 05/08/20 08:18 Resp 20 H 05/08/20 08:18 BP 98/55 05/08/20 08:18 Pulse Ox 94 05/08/20 08:18 05/07/20 05/08/20 05/08/20 22:59 06:59 14:59 Intake Total 610 / 660 200 / 860 Output Total 300 / 650 900 / 1550 Balance 310 / 10 -700 / -690 Weight last 48 hrs Weight 80.921 kg Weight 84.368 kg Physical Exam Narrative: EXAM NARRATIVE: GEN: Awake, alert and oriented, no acute distress CVS: S1S2 N RS: coarse crackles to auscultation B/L all areas Abd: Soft, nt/nd , bs+ MULTIGRAPHER: no focal neuro deficits Urinary Catheter Management^: Morfin: Cath Placed During This Visit: yes Reason for Continuing Indwelling Catheter: Accurate Measurement of Urinary Output in Critically Ill Patients Urinary Catheter Date of Insertion: 05/06/20 Urinary Catheter Time of Insertion: 16:15 Data : 05/05/20 23:58 05/08/20 03:55 Micro: Microbiology 05/06/20 05:20 Blood Culture - Preliminary Blood NEGATIVE TO DATE A&P Assessment and plan (1) Pneumonia: -question of aspiration, noted during last admission as well -continue antibiotics with zosyn, discontnue levaquin -continue to monitor respiratory status, supplemental oxygen as neede -blood cx: prelim negative -rapid COVID-19 negative Status: Acute Qualifiers: Pneumonia type: due to unspecified organism Laterality: right Lung location: lower lobe of lung Qualified Code(s): J18.9 - Pneumonia, unspecified organism (2) Congestive heart failure: -acute CHF exacerbation as evidenced by dyspnea, BNP elevation (3703), evidence of effusion on CXR -Echo: EF=25-30%, severe diffuse hypokinesis with relative sparing of basal inferolateral wall. Reportedly has EF=15% and was to undergo further cardiac workup but opted for early discharge instead -change iv lasix 20mg bid to po Lasix 40mg BID -Remove morfin catheter and monitor for response, strict i/o monitoring with urinal -continue to monitor Is & Os, daily weights -VSS; continue to monitor Status: Acute Qualifiers: Heart failure chronicity: acute on chronic Heart failure type: systolic Qualified Code(s): I50.23 - Acute on chronic systolic (congestive) heart failure (3) Diabetes mellitus, type II: -A1c-6.2 -ISS, hypoglycemia precautions, accucheks -cardiac consistent carb diet as tolerated Status: Chronic Qualifiers: Diabetes mellitus half-way insulin use: without terminal operator use Diabetes mellitus complication status: with circulatory complication Diabetes mellitus complication detail: with other circulatory complications Qualified Code(s): E11.59 - Type 2 diabetes mellitus with other circulatory complications (4) COPD (chronic obstructive pulmonary disease): -oxygen dependent at baseline, 3 L NC -continue steroids, Neb treatments as needed Status: Chronic Qualifiers: COPD type: COPD with acute exacerbation Qualified Code(s): J44.1 - Chronic obstructive pulmonary disease with (acute) exacerbation (5) Coronary artery disease: -continue ASA, ACEi, Imdur, statin -troponins somewhat elevated though no significant delta Status: Chronic Qualifiers: Coronary Disease-Associated Artery/Lesion type: [place] artery [place] vs. transplanted heart: [place] heart Associated angina: angina presence unspecified Qualified Code(s): I25.10 - Atherosclerotic heart disease of [place] coronary artery without angina pectoris (6) Atrial fibrillation and flutter: -AC (Eliquis) discontinued during last admission due to noted GI bleed. Unclear if patient actually stopped this medication -telemetry monitoring -continue coreg Status: Chronic (7) Gastroparesis: -per endoscopic evaluation -had been d/c on reglan, vomiting seems to have subsided Status: Chronic Additional A&P Information -Macrocytic anemia; H/H stable -Generalized weakness; PT evaluation, fall precautions -UA negative -GI ppx with PPI -DVT ppx with Lovenox -Dispo: home -Code status: DNR/DNI Attestations Medical Necessity Statement*: change iv lasix to po, remover morfin, montior urine output , continue abx for pneumonia Coding Level of Care Code Acute Site Superintendent for [facility] Fwd Diagnoses Pneumonia J18.9 Pneumonia type: due to unspecified organism Laterality: right Lung location: lower lobe of lung Congestive heart failure I50.23 Heart failure chronicity: acute on chronic Heart failure type: systolic Diabetes mellitus, type II E11.59 Diabetes mellitus terminal operator insulin use: without half-way use Diabetes mellitus complication status: with circulatory complication Diabetes mellitus complication detail: with other circulatory complications COPD (chronic obstructive pulmonary disease) J44.1 COPD type: COPD with acute exacerbation Coronary artery disease I25.10 Coronary Disease-Associated Artery/Lesion type: [place] artery [place] vs. transplanted heart: [place] heart Associated angina: angina presence unspecified Atrial fibrillation and flutter I48.91; I48.92 Gastroparesis K31.84
[2020-05-08 13:00] LABS: Glucose Point of Care 127 mg/dL (70-110)
[2020-05-08 17:03] LABS: Glucose Point of Care 269 mg/dL (70-110)
[2020-05-08 20:31] LABS: Glucose Point of Care 369 mg/dL (70-110)
[2020-05-08] MEDS: atorvastatin 40 mg Tablet 80 MG PO (21:03)
[2020-05-09] VITALS (17 sets, daily range): BP systolic 112–187; BP diastolic 68–85; PULSE 70–96; RESP 13–24; TEMP 35.7–36.6; O2SAT 93–98
[2020-05-09] MEDS: acetaminophen 325 mg Tablet 650 MG PO ×3 (02:26→22:36)
[2020-05-09] MEDS: enoxaparin 40 mg/0.4 mL Syringe SUBCUT (02:26)
[2020-05-09] MEDS: ipratropium-albuterol 3 mL Neb INHALATION ×4 (02:57→19:12)
--- NOTE | 2020-05-09 03:30 | PC.NURSE ---
notified Dr Smith of 18 beat run vtach, no new orders
[2020-05-09] MEDS: piperacillin-tazobactam 3.375 GM in sodium chloride 0.9% (plus) 50 ML IV ×3 (04:36→20:36)
[2020-05-09 05:09] LABS: Basophils % 0.2 %; Hematocrit 33.4 % (42.0-52.0); Hemoglobin 10.8 g/dL (11.7-16.6); Lymphocytes # 0.9 10^3/uL (0.8-4.8); Lymphocytes % 8.9 %; Mean Corpuscular HGB Conc 32.3 g/dL (30.0-36.0); Mean Corpuscular Hemoglobin 32.5 pg (28.0-34.0); Mean Corpuscular Volume 100.6 fL (80-94); Mean Platelet Volume 11.3 fL (7.4-10.4); Monocytes # 0.9 10^3/uL (0.2-0.9); Monocytes % 8.5 %; Neutrophils % 81.8 %; Nucleated Red Blood Cells % 0 %; Platelet Count 281 10^3/cmm (130-400); Red Blood Count 3.32 10^6/uL (4.1-5.3); Red Cell Distribution Width 15.7 % (12.1-15.1); White Blood Count 10.4 10^3/uL (4.0-10.0)
[2020-05-09 05:31] LABS: Magnesium 1.5 mg/dL (1.7-2.3); Phosphorus 2.3 mg/dL (2.5-4.5)
[2020-05-09 05:36] LABS: Alanine Aminotransferase 14 U/L (0-41); Albumin Level 2.7 g/dL (3.5-5.2); Alkaline Phosphatase 64 IU/L (40-130); Anion Gap 8.7 (5-19); Aspartate Amino Transferase 16 U/L (0-40); Blood Urea Nitrogen 14 mg/dL (8-23); Calcium 8.2 mg/dL (8.5-10.5); Carbon Dioxide 35 mmol/L (22-29); Chloride 102 mmol/L (98-107); Globulin 2.7 g/dL (1.3-4.6); Glomerular Filtration Rate 73.9 mL/min (90-130); Glucose 192 mg/dL (65-115); Osmolality Calculated 300 mOsm/kg (285-295); Potassium 3.7 mmol/L (3.5-5.1); Sodium 142 mmol/L (136-145); Total Bilirubin 0.3 mg/dL (0.15-1.2); Total Protein 5.4 g/dL (6.6-8.7)
--- NOTE | 2020-05-09 06:08 | PC.NURSE ---
pt incontinent X1
[2020-05-09 06:47] LABS: Glucose Point of Care 130 mg/dL (70-110)
[2020-05-09] MEDS: potassium chloride ER 20 mEq Tablet PO ×2 (08:53→17:10)
[2020-05-09] MEDS: predniSONE 20 mg Tablet 40 MG PO (08:55)
[2020-05-09] MEDS: carvedilol 6.25 mg Tablet 3.125 MG PO ×2 (08:55→20:34)
[2020-05-09] MEDS: allopurinol 100 mg Tablet PO (08:56)
[2020-05-09] MEDS: isosorbide mononitrate ER 30 mg Tablet PO (08:56)
[2020-05-09] MEDS: FUROsemide 40 mg Tablet PO ×2 (08:56→15:19)
[2020-05-09] MEDS: pantoprazole DR 40 mg Tablet PO ×2 (08:57→17:10)
[2020-05-09] MEDS: aspirin 81 mg EC Tablet PO (08:57)
[2020-05-09] MEDS: lisinopril 2.5 mg Tablet PO (08:57)
--- NOTE | 2020-05-09 10:54 | DCPLANNER ---
IMM completed on 05/09/20 @ [id number]. Copy of rights given to pt.
[2020-05-09 11:58] LABS: Glucose Point of Care 249 mg/dL (70-110)
[2020-05-09 11:58] LABS: Glucose Point of Care 153 mg/dL (70-110)
--- NOTE | 2020-05-09 14:49 | PM.PN ---
Subjective Subjective: Interval history: transitioned to po lasix yesterday, urine output not charted accurately, Worrell was removed in anticipation of discharge and voiding trial while on diuretics , overnight noted to have 200 cc residual urine, this afternoon again noted with urinary retention, subsequent straight cath yielded 300cc of urine. Medications: Reviewed: Yes Vitals/I&O/Wt Last Vital Signs Temp 97.9 F 05/09/20 12:00 Pulse 85 05/09/20 14:00 Resp 20 H 05/09/20 12:16 BP 127/82 05/09/20 12:00 Pulse Ox 95 05/09/20 12:16 05/08/20 05/09/20 05/09/20 22:59 06:59 14:59 Intake Total 110 / 160 109 / 269 550 / 550 Output Total 300 / 300 Balance 110 / -240 109 / -131 250 / 250 Weight last 48 hrs Weight 81.692 kg Weight 80.921 kg Physical Exam Narrative: EXAM NARRATIVE: GEN: Awake, alert and oriented, no acute distress CVS: S1S2 N RS: CTA B/L Abd: Soft, nt/nd , bs+ TIMBER SIZER: no focal neuro deficits ext: no pitting edema Urinary Catheter Management^: Worrell: Cath Placed During This Visit: yes Reason for Continuing Indwelling Catheter: Accurate Measurement of Urinary Output in Critically Ill Patients Urinary Catheter Date of Insertion: 05/06/20 Urinary Catheter Time of Insertion: 16:15 Data : 05/09/20 04:31 05/09/20 04:31 A&P Assessment and plan (1) Pneumonia: -question of aspiration, noted during last admission as well -currently on rx with zosyn, day 4 today, complete 5 days tomorrow - Repeat CXR today to follow up on pleural effusion -continue to monitor respiratory status, supplemental oxygen as needed -blood cx: negative -rapid COVID-19 negative Status: Acute Qualifiers: Pneumonia type: due to unspecified organism Laterality: right Lung location: lower lobe of lung Qualified Code(s): J18.9 - Pneumonia, unspecified organism (2) Congestive heart failure: -acute CHF exacerbation as evidenced by dyspnea, BNP elevation (3703), evidence of effusion on CXR -Echo: EF=25-30%, severe diffuse hypokinesis with relative sparing of basal inferolateral wall. Reportedly has EF=15% and was to undergo further cardiac workup but opted for early discharge instead. -Per further history, patient tells me today he follows with manager quality systems in [place] regularly. He is known to have EF ~20% and has an AICD in place. He has scheduled follow up with his manager quality systems in May when he is scheduled for what sounds like AICS exchange for a combined PPM/AICD exchange. He followed with his manager quality systems after his recent discharge, he is unsure of any changes were made to his medications but stated that [facility] doctor was happy with progress . Encouraged follow up with his manager quality systems pots discharge - pleural effusion presumed o be transudate related to HF, check x ray today for serial f/up -continue po Lasix 40mg BID -since removing Worrell yesterday, patient is retaining between 200-300 cc needed to be staright cath today, ill bladder scan q4h and if still retaining will need to place a Worrell. Started on Flomax 0.4mg daily. Status: Acute Qualifiers: Heart failure chronicity: acute on chronic Heart failure type: systolic Qualified Code(s): I50.23 - Acute on chronic systolic (congestive) heart failure (3) Diabetes mellitus, type II: -A1c-6.2 -ISS, hypoglycemia precautions, accucheks -cardiac consistent carb diet as tolerated Status: Chronic Qualifiers: Diabetes mellitus nursing home insulin use: without nursing home use Diabetes mellitus complication status: with circulatory complication Diabetes mellitus complication detail: with other circulatory complications Qualified Code(s): E11.59 - Type 2 diabetes mellitus with other circulatory complications (4) COPD (chronic obstructive pulmonary disease): -oxygen dependent at baseline, 3 L NC -Stopped streoids today Status: Chronic Qualifiers: COPD type: COPD with acute exacerbation Qualified Code(s): J44.1 - Chronic obstructive pulmonary disease with (acute) exacerbation (5) Coronary artery disease: -continue ASA, ACEi, Imdur, statin -troponins somewhat elevated though no significant delta Status: Chronic Qualifiers: Coronary Disease-Associated Artery/Lesion type: [place] artery [place] vs. transplanted heart: [place] heart Associated angina: angina presence unspecified Qualified Code(s): I25.10 - Atherosclerotic heart disease of [place] coronary artery without angina pectoris (6) Atrial fibrillation and flutter: -AC (Eliquis) discontinued during last admission due to noted GI bleed. Unclear if patient actually stopped this medication -Hb at 10, check FOBT -telemetry monitoring -continue coreg, continue ASA Status: Chronic (7) Gastroparesis: -per endoscopic evaluation -had been d/c on reglan, vomiting seems to have subsided Status: Chronic Additional A&P Information -Macrocytic anemia; H/H stable -Generalized weakness; PT evaluation, fall precautions -UA negative -GI ppx with PPI -DVT ppx with Lovenox -Dispo: home -Code status: DNR/DNI Attestations Medical Necessity Statement*: urinary retention, ongoing diuresis Coding Level of Care Code Acute Satellite Communications Operator for Chg Fwd Diagnoses Pneumonia J18.9 Pneumonia type: due to unspecified organism Laterality: right Lung location: lower lobe of lung Congestive heart failure I50.23 Heart failure chronicity: acute on chronic Heart failure type: systolic Diabetes mellitus, type II E11.59 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: without petroleum terminal plant operator use Diabetes mellitus complication status: with circulatory complication Diabetes mellitus complication detail: with other circulatory complications COPD (chronic obstructive pulmonary disease) J44.1 COPD type: COPD with acute exacerbation Coronary artery disease I25.10 Coronary Disease-Associated Artery/Lesion type: [place] artery [place] vs. transplanted heart: [place] heart Associated angina: angina presence unspecified Atrial fibrillation and flutter I48.91; I48.92 Gastroparesis K31.84
[2020-05-09] MEDS: tamsulosin 0.4 mg Capsule PO (15:19)
--- NOTE | 2020-05-09 15:47 | XR_ITS ---
WS: [id number] Portable AP upright chest, 05/09/2020 Clinical Data: follow up pleural effusion Comparison study: Portable chest, 05/05/2020 Findings: The bilateral pleural effusions have increased slightly. There is patchy atelectasis and so lid consolidation in the right lower lobe. There is patchy atelectasis in the left lower lobe. The he art remains enlarged. The aortic arch is tortuous. There is a permanent pacemaker with the generator overlying the left lateral chest. XR/XR chest 1V portable 20556 Impression: 1. Slight increase in bilateral effusions. 2. Increase in consolidation in the right lower lobe. 3. Basilar atelectasis and/or pneumonia. 4. No change in cardiomegaly and permanent pacemaker.
[2020-05-09 16:54] LABS: Glucose Point of Care 167 mg/dL (70-110)
[2020-05-09 16:54] LABS: Glucose Point of Care 203 mg/dL (70-110)
[2020-05-09] MEDS: atorvastatin 40 mg Tablet 80 MG PO (20:35)
[2020-05-09 20:37] LABS: Glucose Point of Care 271 mg/dL (70-110)
[2020-05-10] VITALS (14 sets, daily range): BP systolic 96–111; BP diastolic 62–74; PULSE 63–100; RESP 14–22; TEMP 36.4–36.7; O2SAT 31–98
[2020-05-10] MEDS: magnesium sulfate premix 2 GM/50 ML PIGGYBACK IV (00:58)
--- NOTE | 2020-05-10 02:05 | PC.NURSE ---
pt had several runs of DoNanza, notified Dr Smith, Mg and K replacements ordered
[2020-05-10] MEDS: ipratropium-albuterol 3 mL Neb INHALATION ×3 (02:28→14:39)
[2020-05-10] MEDS: enoxaparin 40 mg/0.4 mL Syringe SUBCUT (03:21)
[2020-05-10] MEDS: piperacillin-tazobactam 3.375 GM in sodium chloride 0.9% (plus) 50 ML IV ×2 (03:58→11:20)
[2020-05-10 04:41] LABS: Blood Urea Nitrogen 17 mg/dL (8-23); Calcium 8.4 mg/dL (8.5-10.5); Carbon Dioxide 32 mmol/L (22-29); Chloride 100 mmol/L (98-107); Glomerular Filtration Rate 73.9 mL/min (90-130); Glucose 187 mg/dL (65-115); Magnesium 2.2 mg/dL (1.7-2.3); Osmolality Calculated 292 mOsm/kg (285-295); Phosphorus 3.7 mg/dL (2.5-4.5); Sodium 138 mmol/L (136-145)
[2020-05-10 04:52] LABS: Anion Gap 10.2 (5-19); Potassium 4.2 mmol/L (3.5-5.1)
[2020-05-10] MEDS: acetaminophen 325 mg Tablet 650 MG PO (05:28)
[2020-05-10 07:09] LABS: Glucose Point of Care 170 mg/dL (70-110)
--- NOTE | 2020-05-10 07:55 | PC.NURSE ---
patient resting in bed at this time. patient was boosted up in bed so that he could eat breakfast. patient tray set up and juice opened. assessment performed and charted. call light within reach. patient denied any needs at this time.
[2020-05-10] MEDS: aspirin 81 mg EC Tablet PO (08:48)
[2020-05-10] MEDS: lisinopril 2.5 mg Tablet PO (08:48)
[2020-05-10] MEDS: pantoprazole DR 40 mg Tablet PO (08:48)
[2020-05-10] MEDS: allopurinol 100 mg Tablet PO (08:48)
[2020-05-10] MEDS: isosorbide mononitrate ER 30 mg Tablet PO (08:48)
[2020-05-10] MEDS: tamsulosin 0.4 mg Capsule PO (08:49)
[2020-05-10] MEDS: FUROsemide 40 mg Tablet PO (08:49)
[2020-05-10] MEDS: carvedilol 6.25 mg Tablet 3.125 MG PO (08:49)
[2020-05-10] MEDS: predniSONE 20 mg Tablet 40 MG PO (08:49)
[2020-05-10] MEDS: potassium chloride ER 20 mEq Tablet PO (08:49)
[2020-05-10 10:51] LABS: Glucose Point of Care 144 mg/dL (70-110)
--- NOTE | 2020-05-10 11:56 | P.DS_ITS ---
Discharge Providers Date of Admission: 05/06/20 01:32 Date of Discharge: May 10, 2020 Attending Provider at Admission: Adriana Smith MD Attending Provider at Discharge: Effie Hernandez MD Primary Care Provider: Elo Fiore MD Diagnoses at Discharge Discharge Diagnosis (1) Pneumonia: Status: Resolved Qualifiers: Laterality: right Lung location: lower lobe of lung Pneumonia type: due to unspecified organism Qualified Code(s): J18.9 - Pneumonia, unspecified organism (2) Congestive heart failure: Status: Acute Qualifiers: Heart failure chronicity: acute on chronic Heart failure type: systolic Qualified Code(s): I50.23 - Acute on chronic systolic (congestive) heart failure (3) Diabetes mellitus, type II: Status: Chronic Qualifiers: Diabetes mellitus complication detail: with other circulatory complications Diabetes mellitus complication status: with circulatory complication Diabetes mellitus terminal makeup operator insulin use: without shelter use Qualified Code(s): E11.59 - Type 2 diabetes mellitus with other circulatory complications (4) COPD (chronic obstructive pulmonary disease): Status: Chronic Qualifiers: COPD type: COPD with acute exacerbation Qualified Code(s): J44.1 - Chronic obstructive pulmonary disease with (acute) exacerbation (5) Coronary artery disease: Status: Chronic Qualifiers: Associated angina: angina presence unspecified Coronary Disease- Associated Artery/Lesion type: [place] artery [place] vs. transplanted heart: [place] heart Qualified Code(s): I25.10 - Atherosclerotic heart disease of [place] coronary artery without angina pectoris (6) Atrial fibrillation and flutter: Status: Chronic (7) Gastroparesis: Status: Chronic Reason for Visit Reason for Visit: SOB Hospital Course Hospital Course 69-year-old gentleman with history of COPD, coronary disease, diabetes, AICD, severe chronic systolic congestive heart failure, reported EF 15% , recently discharged on 04/17 when he was admitted for aspiration and ALISSON,gastroparesis, coffee ground emesis disocntinued Lasix and lisinopril on discharge. Returned on 05/06 with c/o cough, increased 02 requirement and signs of fluid overload. He was noted to have acute on chronic CHF exacerbation, aspiration pneumonia , A fib rate controlled with intermittent episodes of ill sustained V tach on telemetry (has AICD). Treated with iv siuresis, transitioned to po at time of discharge, empiric course of Zosyn for aspiration pneumonia. Discharged today in stable to improved condition. He has a follow up appointment with his commercial management accountant Dr. Duke in [place] in the next 2 weeks. Discharged home under care of his sister with whom he resides. 02 requirement at baseline at discharge Physical Exam Narrative: EXAM NARRATIVE: GEN: Awake, alert and oriented, no acute distress CVS: S1S2 N RS: CTA B/L Abd: Soft, nt/nd , bs+ BUFFING WHEEL INSPECTOR: no focal neuro deficits Urinary Catheter Management^: [place]: Cath Placed During This Visit: yes Reason for Continuing Indwelling Catheter: Accurate Measurement of Urinary Output in Critically Ill Patients Urinary Catheter Date of Insertion: 05/06/20 Urinary Catheter Time of Insertion: 16:15 Discharge Data Data Completed and Pending: Completed Studies During Hospitalization Category Date Time Status CT head wo con* 7 0450 Urgent Cat Scan 05/05/20 23:28 Completed XR chest 1V kimmy ble 30613 Routine Exams 05/09/20 15:47 Completed XR chest 1V kimmy ble 42597 Urgent Exams 05/05/20 23:28 Completed CV echo limited 9 3308 Routine Ultrasound 05/06/20 06:00 Completed Pending at discharge Category Date Time Status Blood Culture Sta t Lab 05/06/20 05:20 Results Immunochemical Fe jerzy OCB Routine Lab 05/09/20 15:48 Uncollected Labs from last 24 hours 05/10/20 05/10/20 05/10/20 10:48 07:05 03:25 Sodium 138 Potassium 4.2 Chloride 100 Carbon Dioxide 32 H Anion Gap 10.2 BUN 17 Creatinine 1.0 GFR Calculation 73.9 L Glucose 187 H POC Glucose 144 H 170 H Calculated Osmolal ity 292 Calcium 8.4 L Phosphorus 3.7 D Magnesium 2.2 05/09/20 05/09/20 05/09/20 20:23 16:42 16:34 Sodium Potassium Chloride Carbon Dioxide Anion Gap BUN Creatinine GFR Calculation Glucose POC Glucose 271 H 167 H 203 H Calculated Osmolal ity Calcium Phosphorus Magnesium 05/09/20 05/09/20 11:50 11:44 Sodium Potassium Chloride Carbon Dioxide Anion Gap BUN Creatinine GFR Calculation Glucose POC Glucose 249 H 153 H Calculated Osmolal ity Calcium Phosphorus Magnesium Vitals: Last Vital Signs Temp 97.7 F 05/10/20 03:48 Pulse 82 05/10/20 09:15 Resp 16 05/10/20 09:15 BP 100/62 05/10/20 07:26 Pulse Ox 95 05/10/20 09:15 Discharge Plan Discharge Patient Disposition: Home Condition: Stable Prescriptions: New carvedilol 6.25 mg Tablet 3.125 mg PO 30 Days Qty: 60 RF: 0 furosemide 40 mg Tablet 20 mg PO BID@,16 30 Days Qty: 60 RF: 0 ipratropium-albuterol 0.5 mg-3 mg(2.5 mg base)/3 mL Solution For Nebulization 3 ml inhalation Q6H PRN (Reason: Shortness Of Breath) 30 Days Qty: 120 RF: 0 Klor-Con M20 20 mEq Tablet,Er Particles/Crystals 10 meq PO BID 30 Days Qty: 30 RF: 0 tamsulosin 0.4 mg Capsule 0.4 mg PO DAILY 30 Days Qty: 30 RF: 0 lisinopril 2.5 mg Tablet 2.5 mg PO DAILY 30 Days RF: 0 Continued pantoprazole 40 mg tablet,delayed release (DR/EC) 40 mg PO BID RF: 0 atorvastatin 80 mg Tablet 80 mg PO BEDTIME RF: 0 glipizide 10 mg Tablet 10 mg PO BID RF: 0 isosorbide mononitrate 30 mg Tablet Extended Release 24 Hr 30 mg PO BID RF: 0 allopurinol 100 mg Tablet 100 mg PO DAILY RF: 0 nitroglycerin 0.4 mg Tablet, Sublingual 0.4 mg SUBLINGUAL Q5M PRN (Reason: chest pains) RF: 0 aspirin [Nhi Chewable Aspirin] 81 mg Tablet,Chewable 81 mg PO DAILY RF: 0 alogliptin 25 mg Tablet 12.5 mg PO DAILY RF: 0 albuterol sulfate [ProAir HFA] 90 mcg/actuation Hfa Aerosol Inhaler 90 mcg inhalation Q4H PRN (Reason: Shortness Of Breath Or Wheezing) RF: 0 Discontinued carvedilol 25 mg Tablet 25 mg PO BID RF: 0 pentoxifylline 400 mg Tablet Extended Release 400 mg PO TID RF: 0 Eliquis 5 mg Tablet 5 mg PO BID RF: 0 Discharge Orders: Discharge Order (Routine); Ordered 05/10/20 Ordered By: Effie Hernandez Referrals: Yohannes Duke MD [Referring] - 2 weeks (SENT A FOLLOW UP REQUEST FOR [address] CINDY DUKE'S OFFICE,THEY SHOULD BE GIVING YOU A CALL, IF YOU HAVE NOT HEARD FROM THEM BY TUESDAY THE PLEASE GIVE THEM A CALL AT [phone]) Elo Fiore MD [Primary Care Provider] - 4-7 days (SENT A FOLLOW UP REQUEST FOR 4-[address] ELO FIORE'S OFFICE,THEY SHOULD BE GIVING YOU A CALL, IF YOU HAVE NOT HEARD FROM THEM BY Tuesday PLEASE GIVE THEM A CALL AT [phone]) Discharge Diet: Usual diet Discharge Activity: Resume usual activity Patient Instructions: Lisinopril (By mouth), Furosemide (By mouth), Potassium Chloride (By mouth), Tamsulosin (By mouth), Carvedilol (By mouth), Ipratropium/Albuterol (By breathing), Heart Failure (DC), Coronary Artery Disease (DC), Chronic Obstructive Pulmonary Disease (DC), Community-acquired Pneumonia (DC), CHF Stoplight Discharge Attestations Time Spent in Discharge Care*: greater than 30 min Specific Discharge Activities: educating patient, educating and/or supporting family/caregiver, documenting/other paperwork and evaluating patient/reviewing data Quality Metrics Clinical Quality Measures During this hospital stay, did patient experience: None Coding Level of Care Code Acute Speech And Language Assistant for g Fwd Diagnoses Pneumonia J18.9 Laterality: right Lung location: lower lobe of lung Pneumonia type: due to unspecified organism Congestive heart failure I50.23 Heart failure chronicity: acute on chronic Heart failure type: systolic Diabetes mellitus, type II E11.59 Diabetes mellitus complication detail: with other circulatory complications Diabetes mellitus complication status: with circulatory complication Diabetes mellitus terminal makeup operator insulin use: without terminal makeup operator use COPD (chronic obstructive pulmonary disease) J44.1 COPD type: COPD with acute exacerbation Coronary artery disease I25.10 Associated angina: angina presence unspecified Coronary Disease-Associated Artery/Lesion type: [place] artery [place] vs. transplanted heart: [place] heart Atrial fibrillation and flutter I48.91; I48.92 Gastroparesis K31.84
--- NOTE | 2020-05-10 13:44 | PC.NURSE ---
sister liz called to let her know that we would be discharging patient and that she could head this way to pick him up. patient is aware of discharge and sister being called.
--- NOTE | 2020-05-10 15:40 | PC.NURSE ---
discharge instructions given to patient. patient verbalized an understanding. iv removed, tip intact, patient tolerated well. patient transferred to wheelchair with stand by assist. patient was escorted to exit where private vehichle and sister picked him up with all belongings and portable oxygen brought over from [facility] due to family forgetting to bring portable oxygen.
== END 2020-05-10 15:42 | disposition home or self-care (01) | DRG 177 ==
LOC: ER 05-06 01:31 → CSU 05-06 02:08
PROVIDERS: Family Medicine; Admitting Provider Hospitalist; Emergency Provider Emergency Medicine; PCP Family Medicine; Visit Provider Student in an Organized Health Care Education/Training Program
DX: J69.0 Pneumonitis due to inhalation of food and vomit (principal); I50.23 Acute on chronic systolic (congestive) heart failure; J44.0 Chronic obstructive pulmonary disease with (acute) lower respiratory infection; K92.0 Hematemesis; I48.92 Unspecified atrial flutter; N17.9 Acute kidney failure, unspecified; Z66 Do not resuscitate; E11.59 Type 2 diabetes mellitus with other circulatory complications; K31.84 Gastroparesis; D53.9 Nutritional anemia, unspecified; I25.10 Atherosclerotic heart disease of native coronary artery without angina pectoris; I48.91 Unspecified atrial fibrillation; E11.43 Type 2 diabetes mellitus with diabetic autonomic (poly)neuropathy; Z95.810 Presence of automatic (implantable) cardiac defibrillator; Z79.82 Long term (current) use of aspirin; Z99.81 Dependence on supplemental oxygen; F17.210 Nicotine dependence, cigarettes, uncomplicated; Z20.822 Contact with and (suspected) exposure to COVID-19
CPT/HCPCS: 12345; 36415; 36416; 51702; 51798; 70450; 71045; 80048; 80053; 80307; 81003; 82140; 82962; 83036; 83735; 83880; 84100; 84145; 84484; 85025; 85610; 87040; 87426; 93005; 93308; 94640; 96372; 97161; 97530; 99283; J0456; J0696; J1650; J1815; J1940; J1956; J2543; J3475; J7030; J7050; J7512